=== PATIENT | female | born 1955 | race Caucasian/White ===

== ENCOUNTER 2020-03-19 11:54 | Outpatient (REF) | payer OTHER, SELFPAY | END 2020-03-19 11:55 | disposition home or self-care (01) | LOC: HO.LAB 11:54 | PROVIDERS: PCP Internal Medicine; Visit Provider Psychiatry & Neurology Neurology | DX: M79.2 Neuralgia and neuritis, unspecified (principal); M45.9 Ankylosing spondylitis of unspecified sites in spine | CPT/HCPCS: 82565; 84520 ==

== ENCOUNTER 2020-03-20 10:13 | Outpatient (REF) | payer OTHER, SELFPAY ==
--- NOTE | 2020-03-20 10:28 | MR_ITS ---
EXAMINATION: MRA HEAD WITHOUT AND WITH CONTRAST CLINICAL INFORMATION: Pulsatile tinnitus. COMPARISON: None TECHNIQUE: MRA of the head was performed without and with contrast. A total of 6 mL Gadavist was intravenously administered. An axial fiesta sequence was also performed. FINDINGS: The distal cervical segments of both internal carotid arteries are patent. There is signal loss involving the bilateral petrous ICA segments which could be artifactual (related to presumed pneumatization). The cavernous segments are patent. The paraclinoid and supraclinoid segments are also patent. The ACAs and MCAs appear normal with symmetric collaterals. The intradural vertebral arteries appear patent. The left side being significantly dominant. The basilar artery is patent. There is -type origin of the right NUCLEAR CRITICALITY SAFETY ENGINEER. A small left posterior communicating artery is seen. Both plastic maker are patent with symmetric collaterals. No definite aneurysm is seen. There is no abnormal arterialized flow on the lzwl-se-zfxbji images. No mass effect or midline shift is seen. On the postcontrast images the posterior fossa dural venous sinuses appear patent. The bilateral inner ear structures demonstrate normal signal. No cerebellopontine angle lesion is seen. No gross vestibular schwannoma is noted. MR/MR angio head wo/w con IMPRESSION: No stenosis or aneurysm seen within the intracranial arteries. No abnormal arterialized flow is seen.
[2020-03-20 11:03] LABS: Blood Urea Nitrogen 16 mg/dL (9-16); Estimated Glomerular Filt Rate 59
== END 2020-03-20 10:14 | disposition home or self-care (01) ==
LOC: HO.MRI 10:13
PROVIDERS: PCP Internal Medicine; Visit Provider Psychiatry & Neurology Neurology
DX: H93.19 Tinnitus, unspecified ear (principal)
CPT/HCPCS: 70546; 82565; 84520; A9585

== ENCOUNTER → 2020-07-02 13:35 | Outpatient (BNVA) | payer OTHER, SELFPAY | PROVIDERS: PCP Internal Medicine; Visit Provider Surgery Vascular Surgery ==

== ENCOUNTER 2020-07-07 15:02 | Outpatient (REF) | payer OTHER, SELFPAY ==
--- NOTE | ~2020-07-07 | US_ITS ---
EXAMINATION: US EXTRACRANIAL CAROTID DUPLEX, BILATERAL CLINICAL INFORMATION: Occlusion and stenosis of bilateral carotid arteries. COMPARISON: None TECHNIQUE: Real-time ultrasound and Doppler techniques (integrating B-mode 2-D vascular images, Doppler spectral analysis and color-flow Doppler imaging) were utilized to interrogate the extracranial carotid arteries, the vertebral arteries and proximal subclavian arteries bilaterally. The degree of stenosis is determined by criteria similar to NASCET. FINDINGS: Right Side: 1. There is trace atherosclerotic plaque seen in the bifurcation/proximal ICA region. 2. The common carotid artery PSV proximally is 100 cm/s and distally 103 cm/s. 3. The proximal internal carotid artery velocities are 89 cm/s systolic and 35 cm/s diastolic. 4. The proximal external carotid artery PSV is 127 cm/s. 5. The vertebral artery shows antegrade flow. 6. The subclavian artery waveforms are normal. Left Side: 1. There is no appreciable atherosclerotic plaque seen in the bifurcation/proximal ICA region. 2. The common carotid artery PSV proximally is 109 cm/s and distally 86 cm/s. 3. The proximal internal carotid artery velocities are 96 cm/s systolic and 30 cm/s diastolic. 4. The proximal external carotid artery PSV is 101 cm/s. 5. The vertebral artery shows antegrade flow. 6. The subclavian artery waveforms are normal. US/US carotid duplex BI IMPRESSION: 1. RIGHT: Minimal, non-hemodynamically significant stenosis of the proximal right internal carotid artery corresponding to a 0-49% stenosis by velocity criteria. 2. LEFT: Normal left internal carotid artery without atherosclerotic plaque or hemodynamically significant stenosis.
== END 2020-07-07 15:03 | disposition home or self-care (01) ==
LOC: HO.US 15:02
PROVIDERS: PCP Internal Medicine; Visit Provider Surgery Vascular Surgery
DX: I63.233 Cerebral infarction due to unspecified occlusion or stenosis of bilateral carotid arteries (principal)
CPT/HCPCS: 93880

== ENCOUNTER 2020-12-26 08:56 | Outpatient (REF) | payer OTHER, SELFPAY ==
[2020-12-26 09:58] LABS: MANUAL DIFF FLAG NO
[2020-12-26 10:06] LABS: Basophils Percent Auto 0.9 % (0-2); Eosinophils Absolute Auto 0.1 X10*3/uL (0.0-0.4); Eosinophils Percent Auto 2.8 % (0-4); Hematocrit 40.1 % (37-47); Hemoglobin 13.4 g/dl (12.0-16.0); Imm Gran Abs Auto 0.02 X10*3/uL (0.00-0.03); Imm Gran Pct Auto 0.5 % (0.0-0.4); Lymphocytes Absolute Auto 1.1 X10*3/uL (1.2-4.9); Lymphocytes Percent Auto 26.6 % (20-40); Mean Corpuscular HGB Conc 33.4 g/dl (31.0-35.0); Mean Corpuscular Hemoglobin 32.3 pg (27.0-33.0); Mean Corpuscular Volume 96.6 fL (80-98); Mean Platelet Volume 10.3 fL (9.4-12.3); Monocytes Absolute Auto 0.3 X10*3/uL (0.1-1.2); Monocytes Percent Auto 7.7 % (2-11); Neutrophils Absolute Auto 2.6 X10*3/uL (2.0-8.3); Neutrophils Percent Auto 61.5 % (45-73); Platelet Count 184 X10*3/uL (160-400); Red Blood Count 4.15 X10*6/uL (4.20-5.50); Red Cell Distribution Width 12.6 % (11.0-16.0); White Blood Count 4.3 X10*3/uL (4.8-10.8)
[2020-12-26 10:54] LABS: Alanine Aminotransferase 24 U/L (0-31); Albumin Level 4.5 g/dL (3.5-5.0); Alkaline Phosphatase 78 U/L (39-117); Aspartate Amino Transferase 24 U/L (5-31); Bilirubin Direct 0.3 mg/dL (0.0-0.5); Bilirubin Total 0.7 mg/dL (0.0-1.0); Lipase 45 U/L (8-78); Total Protein 6.7 g/dL (6.5-8.0)
== END 2020-12-26 08:57 | disposition home or self-care (01) ==
LOC: HO.LAB 08:56
PROVIDERS: PCP Internal Medicine; Visit Provider Internal Medicine Gastroenterology
DX: R10.13 Epigastric pain (principal)
CPT/HCPCS: 36415; 80076; 83690; 85025

== ENCOUNTER → 2021-01-21 08:58 | Outpatient (BNVA) | payer OTHER, SELFPAY | PROVIDERS: PCP Internal Medicine ==

== ENCOUNTER 2021-03-19 10:00 | Outpatient (RCR) | payer OTHER, SELFPAY ==
--- NOTE | 2021-02-17 15:36 | MHC.PT.EP ---
[facility] [place] Office [place] Office [place] Office [address] Piotr Redd [address] [phone] F: [phone] F: [phone] F: [phone] F: [phone] Physical Therapy Plan of Care Date of Evaluation: Date of Surgery: Diagnosis: Assessment: The patient arrived reporting pelvic pain and dyspareunia. She had significant pelvic floor weakness, poor musculature endurance the PFM, and fair coordination. Intiially she had significant tightness at the introitus. This relaxed with cues for breathing and time/desensitivation. Once I was past the introitus her PFM were relaxed and had normal tone. The patient was cautioned about when using dilator to use downward pressure to stay away from the urethra. The patient will benefit from diaphragmatic breathing to help introitus relaxation. I will instruct on proper dilator use. She is an excellent candidate for skilled Pelvic Floor Therapy. Frequency and Duration: The patient will be seen 1x/week x 8 weeks. Short Term Goals: 1. Pt to be able to voluntarily relax her pelvic floor and to have improved symmetry in resting tone . 2. Pt to be able to demonstrate diaphragmatic breathing to improve pressure exchange and intra abdominal load management. 1. The patient to be able to learn modifications her and her partner can use during intercourse to alleviate pain caused by penetration. 2. Pt to report 25% reduction in deep pelvic pain. Time Study Technician Goals: 1. The patient to be able to report no pain in her pelvis during house chore, and ADL's to help return to PLOF. 2. Pt to be able to improve PFM contraction to include a lift in the PFM to improve supportive function of the pelvic floor. 3. Pt to be able to return to normal sexual activity without pain. Treatment Plan: Modalities to reduce pain, spasms and effusion. Manual therapy to restore motion and function. Therapeutic exercise to improve strength and flexibility. Neuromuscular re-education for posture and balance. Therapeutic activities to return to functional activities of daily living. Electronically signed by: Please sign and return to therapist. Thank you for your referral.
== END 2021-03-19 14:49 | disposition home or self-care (01) ==
LOC: HO.PT 10:00
PROVIDERS: Visit Provider Urology
DX: R10.2 Pelvic and perineal pain (principal)
CPT/HCPCS: 97112; 97140; 97162; 97530

== ENCOUNTER → 2021-03-26 14:04 | Outpatient (BNVA) | payer OTHER, SELFPAY | PROVIDERS: PCP Internal Medicine ==

== ENCOUNTER → 2021-05-10 08:34 | Outpatient (BNVA) | payer OTHER, SELFPAY | PROVIDERS: PCP Internal Medicine ==

== ENCOUNTER 2021-06-07 16:34 | Outpatient (REF) | payer OTHER, SELFPAY ==
[2021-06-07 17:59] LABS: Appearance Urine CLEAR; Color Urine YELLOW; Glucose Urine UA NEG (NEG); Leukocyte Esterase Urine 1+ (NEG); Nitrite Urine NEG (NEG); Urine Blood TRACE (NEG); Urine Ketones NEG (NEG); Urine Protein NEG (NEG-TRACE)
[2021-06-07 18:26] LABS: Mucus Urine TRACE /LPF; RBC Urine 0-2 /HPF (0); Squamous Epithelial Cell Urine 2+ /LPF; WBC Clumps Urine NOTED
== END 2021-06-07 16:35 | disposition home or self-care (01) ==
LOC: HO.LAB 16:34
PROVIDERS: PCP Internal Medicine; Visit Provider Urology
DX: N39.0 Urinary tract infection, site not specified (principal)
CPT/HCPCS: 81001; 87086

== ENCOUNTER → 2021-08-03 09:39 | Outpatient (BNVA) | payer OTHER, SELFPAY | PROVIDERS: PCP Internal Medicine | DX: Z13.89 Encounter for screening for other disorder (principal) ==

== ENCOUNTER 2021-08-05 10:33 | Outpatient (REF) | payer OTHER, SELFPAY ==
[2021-08-05 12:31] LABS: Appearance Urine CLEAR; Color Urine STRAW; Glucose Urine UA NEG (NEG); Leukocyte Esterase Urine 2+ (NEG); Nitrite Urine NEG (NEG); Specific Gravity - Urine <= 1.005 (1.005-1.025); Urine Blood TRACE (NEG); Urine Ketones NEG (NEG); Urine Protein NEG (NEG-TRACE)
[2021-08-05 13:16] LABS: Bacteria Urine 4+ /LPF; Squamous Epithelial Cell Urine TRACE /LPF
[2021-08-05 13:17] LABS: RBC Urine 0-2 /HPF (0)
== END 2021-08-05 10:34 | disposition home or self-care (01) ==
LOC: HO.LAB 10:33
PROVIDERS: Urology; PCP Internal Medicine
DX: N39.0 Urinary tract infection, site not specified (principal)
CPT/HCPCS: 81001; 87086; 87088; 87186

== ENCOUNTER → 2021-10-15 09:52 | Outpatient (BNVA) | payer OTHER, SELFPAY | PROVIDERS: PCP Internal Medicine; Visit Provider Urology | DX: N39.0 Urinary tract infection, site not specified (principal); N95.8 Other specified menopausal and perimenopausal disorders; R10.2 Pelvic and perineal pain | CPT/HCPCS: 52000 ==

== ENCOUNTER 2022-03-04 13:55 | Outpatient (REF) | payer OTHER, SELFPAY ==
--- NOTE | ~2022-03-04 | US_ITS ---
EXAMINATION: US RETROPERITONEAL LIMITED (RENAL ONLY) CLINICAL INFORMATION: Unspecified hydronephrosis. COMPARISON: Renal ultrasound 10/29/2018 and 09/18/2017. TECHNIQUE: Real-time imaging of the kidneys. FINDINGS: RIGHT KIDNEY: 11.6 x 4.0 x 4.8 cm (SAG x AP x TRV). The kidney is normal in size, contour, and echogenicity. Renal cortical thickness is normal. No renal calculi or focal parenchymal lesions. There is mild right hydroureteronephrosis. LEFT KIDNEY: 9.7 x 3.7 x 4.0 cm (SAG x AP x TRV). The kidney is mildly atrophic in size, normal contour, and echogenicity. No renal calculi or focal parenchymal lesions. BLADDER: Right ureteral jet is demonstrated; left is not. US/US renal BI IMPRESSION: 1. Mild right hydroureteronephrosis. 2. Mild atrophy left kidney. 3. Right ureteral jet is seen.
== END 2022-03-04 13:56 | disposition home or self-care (01) ==
LOC: HO.US 13:55
DX: N13.30 Unspecified hydronephrosis (principal)
CPT/HCPCS: 76775

== ENCOUNTER → 2022-03-11 13:03 | Outpatient (BNVA) | payer OTHER, SELFPAY | PROVIDERS: PCP Internal Medicine; Visit Provider Urology | DX: N13.30 Unspecified hydronephrosis (principal); R10.2 Pelvic and perineal pain; N95.8 Other specified menopausal and perimenopausal disorders | CPT/HCPCS: 51798 ==

== ENCOUNTER 2022-04-21 10:07 | Outpatient (REF) | payer OTHER, SELFPAY ==
[2022-04-21 11:40] LABS: Appearance Urine Clear; Color Urine Yellow; Glucose Urine UA Negative (Negative); Leukocyte Esterase Urine Large (3+) (Negative); Nitrite Urine Negative (Negative); PH 6.5 (5.0-9.0); Specific Gravity - Urine <= 1.005 (1.005-1.025); UMIC TRIGGER UA YES; Urine Blood Moderate (2+) (Negative); Urine Ketones Negative (Negative); Urine Protein Negative (Neg-Trace)
[2022-04-21 11:57] LABS: Bacteria Urine 4+ (None Seen); Hyaline Casts Urine 0-2 /LPF (0-2); RBC Urine 0-2 /HPF (0-2); Squamous Epithelial Cell Urine 0-2 /HPF (0-2); WBC Urine 21-50 /HPF (0-5)
== END 2022-04-21 10:08 | disposition home or self-care (01) ==
LOC: HO.LAB 10:07
PROVIDERS: PCP Internal Medicine; Visit Provider Urology
DX: N39.0 Urinary tract infection, site not specified (principal)
CPT/HCPCS: 81001; 87086; 87088; 87186

== ENCOUNTER 2022-08-12 12:43 | Outpatient (REF) | payer OTHER, SELFPAY ==
[2022-08-12 14:20] LABS: Appearance Urine Clear; Color Urine Yellow; Glucose Urine UA Negative (Negative); Leukocyte Esterase Urine Trace (Negative); Nitrite Urine Negative (Negative); PH 5.5 (5.0-9.0); UMIC TRIGGER UA YES; Urine Blood Negative (Negative); Urine Ketones Negative (Negative); Urine Protein Negative (Neg-Trace)
[2022-08-12 14:23] LABS: Bacteria Urine None Seen (None Seen); Hyaline Casts Urine 0-2 /LPF (0-2); RBC Urine 0-2 /HPF (0-2); Squamous Epithelial Cell Urine 0-2 /HPF (0-2); WBC Urine 0-5 /HPF (0-5)
== END 2022-08-12 12:44 | disposition home or self-care (01) ==
LOC: HO.LAB 12:43
PROVIDERS: PCP Internal Medicine; Visit Provider Urology
DX: N39.0 Urinary tract infection, site not specified (principal)
CPT/HCPCS: 81001; 87086

== ENCOUNTER → 2022-09-09 13:38 | Outpatient (BNVA) | payer OTHER, SELFPAY | PROVIDERS: PCP Internal Medicine; Visit Provider Nurse Practitioner Family | DX: N39.0 Urinary tract infection, site not specified (principal); N95.8 Other specified menopausal and perimenopausal disorders | CPT/HCPCS: 51798 ==

== ENCOUNTER 2023-02-27 09:56 | Outpatient (REF) | payer OTHER, SELFPAY ==
--- NOTE | ~2023-02-27 | US_ITS ---
EXAMINATION: US RETROPERITONEAL COMPLETE (RENAL) CLINICAL INFORMATION: Unspecified hydronephrosis. COMPARISON: Ultrasound retroperitoneal limited 03/04/2022 and 10/29/2018. TECHNIQUE: Real-time imaging of the kidneys and bladder. Limited visualization due to bowel gas. FINDINGS: RIGHT KIDNEY: 11.1 x 3.8 x 4.4 cm (SAG x AP x TRV). Mild right hydronephrosis and proximal hydroureter. Cap-pe-kbdpgh ureter obscured by bowel gas. No right renal calculi identified. Renal cortical thickness is normal. Limited visualization. LEFT KIDNEY: 7.9 x 2.3 x 2.9 cm (SAG x AP x TRV). Atrophic left kidney. Mild borderline left hydronephrosis. No renal calculi identified. Limited visualization. Possible renal cortical thinning difficult to evaluate due to severely limited visualization. BLADDER: Well-distended. Right ureteral jet is visualized. A weak left ureteral jet is visualized. Prevoid bladder volume is 345 mL. Postvoid bladder volume is 25 mL. US/US retroperitoneal comp IMPRESSION: 1. Mild right hydronephrosis and proximal hydroureter. Bco-nh-atioic ureter obscured by bowel gas. No right renal calculi identified. 2. Atrophic left kidney. Mild borderline left hydronephrosis. No renal calculi identified. Limited visualization. 3. Possible renal cortical thinning difficult to evaluate due to severely limited visualization. 4. Right ureteral jet is visualized. A weak left ureteral jet is visualized.
== END 2023-02-27 09:57 | disposition home or self-care (01) ==
LOC: HO.US 09:56
PROVIDERS: PCP Student in an Organized Health Care Education/Training Program; Visit Provider Nurse Practitioner Family
DX: N13.30 Unspecified hydronephrosis (principal); N39.0 Urinary tract infection, site not specified
CPT/HCPCS: 76770

== ENCOUNTER 2023-03-14 11:26 | Outpatient (AMB) | payer OTHER, SELFPAY ==
--- NOTE | 2023-03-14 11:31 | A.OFFVIS_ITS ---
Intake Intake Visit Reasons: 6m/PVR(set) Intake Note: Patient is present for follow up recurrent uti Urology Medications: estrace cream, solifenacin, cipro prn Blood Thinner: none PVR: 97ml's Javascript Application Developer Required: No Accompanied by: Self / Same As Patient Allergies codeine [CODEINE] Allergy (Unknown, Verified 03/14/23 11:51) Unknown Iodinated Contrast Media [IV Dye, Iodine Containing] Allergy (Unknown, Verified 03/14/23 11:51) Unknown Penicillins [PENICILLINS] Allergy (Unknown, Verified 03/14/23 11:51) Hives Sulfa (Sulfonamide Antibiotics) [SULFA (SULFONAMIDE ANTIBIOTICS)] Allergy (Unknown, Verified 03/14/23 11:51) Unknown latex Allergy (Verified 03/14/23 11:51) Rash meperidine [From Demerol] Allergy (Verified 03/14/23 11:51) Unknown nitrofurantoin [From Macrobid] Allergy (Verified 03/14/23 11:51) Unknown Medication List - Last Reconciled 03/14/23 by MESERET Rizzo- amitriptyline 10 mg PO BEDTIME ciprofloxacin HCl 250 mg PO DAILY 30 days cyclobenzaprine 5 mg PO BEDTIME PRN estradiol 0.01%(0.1mg/gram) 1 g vaginal 3XW fluticasone propionate 50 mcg/actuation 2 sprays intranasal DAILY gabapentin 125 mg PO DAILY linezolid 600 mg PO BID 7 days lorazepam (Ativan) 0.5 mg PO BEDTIME PRN omeprazole 10 mg PO DAILY solifenacin 5 mg PO DAILY 90 days sumatriptan succinate mg PO HPI HPI Comments History of Present Illness Details Fadumo is a very pleasant 67-year-old female patient of Dr. Cowart. She presents to the office today for follow-up of her genitourinary symptoms of menopause, lichen sclerosis and recurrent urinary tract infections. She has a past medical history of anxiety, atrophy of the left kidney, cervical spondylosis, depression, fibromyalgia, GERD, and osteopenia. When asked she reports to be doing and feeling well. She discusses recently celebrating her 67 birthday. When asked she reports compliance with topical Estrace cream. Recent retroperitoneal ultrasound results reviewed with the patient today. Right kidney with mid right hydronephrosis and proximal hydroureter. Cva-oi-uxptsa ureter obscured by bowel gas. No right renal calculi identified. Left atrophic kidney. Mild borderline left hydronephrosis. No renal calculi identified. The bladder is well distended. Right ureteral jet is visualized. A week left ureteral jet is visualized. Prevoid bladder volume is approximately 350 mL. Postvoid bladder volume is approximately 30 mL. Patient with a recent 24 hour urine collection with endocrinology for possible initiation of Prolia given longstanding history of osteoporosis. 11/30 BUN--15 creatinine--1.0. She currently denies any bothersome urinary issues or concerns at this time. In office urinalysis results reviewed with the patient today. PVR--97ml's. When asked she denies urinary urgency, urinary frequency, incontinence, nocturia, hematuria, dysuria, foul smelling urine, changes to urinary stream, flank pain, fever, and or chills. She is happy with her current voiding parameters on 5 mg of VESIcare daily. Discussed further hydronephrosis workup versus surveillance monitoring. [facility] Medical History Fibromyalgia GERD (gastroesophageal reflux disease) Cervical spondylosis Osteopenia Depression Anxiety Atrophy of left kidney Sexual arousal disorder Pelvic pain Hydronephrosis Frequent UTI delivery delivered Surgical History History of surgery Status post vein stripping Family History Mother HTN (hypertension) Heart attack Diabetes Father Esophagus cancer Social History Alcohol intake: never Patient Tobacco Use Status: Never used Tobacco Review of Systems Const All systems reviewed & are unremarkable except as noted in HPI and below Reports as per HPI Eyes Reports no additional complaints ENT Reports no additional complaints Card Reports no additional complaints Resp Reports no additional complaints GI Reports as per HPI Reports as per HPI Musc Reports as per HPI Neuro Reports no additional complaints Psych Reports as per HPI Endo Reports no additional complaints Physical Exam Const General: cooperative, healthy appearing, comfortable, no acute distress, well developed, alert and awake Orientation/consciousness: patient oriented x3 Limitations: no limitations HEENT Head: Yes normal to inspection, Yes normocephalic and Yes atraumatic Ears: hearing grossly normal bilaterally Eyes General: appearance normal, both eyes and all related structures Neck Neck: Yes normal visual inspection and Yes trachea midline Chest Chest palpation & inspection: normal inspection of the chest Resp Effort & Inspection: normal respiratory effort and able to speak in complete sentences Cardio Rate: regular rate GI Inspection: Yes normal to inspection General: Yes no CVA tenderness Back/Spine/Pelvis Back: no CVA tenderness Skin General skin exam: no rashes or lesions noted Neuro General: patient oriented x3 Extrem General: Yes normal to inspection Psych Appearance: grossly normal and well kempt Mental Status: mental status grossly normal Speech and movement: Normal speech and movement present and Clear speech present Affect: normal affect Attitude: cooperative Thought process: Normal thought process present Thought content: Normal thought content present Insight: Good insight present (Psych) Judgement: Good judgement present (Psych) Office Procedures Post Void Residual Post Residual Void Post Void Residual (PVR): 97 [id number] Void Residual by ultrasound Results AMB Urinalysis, Automated UA Leukoctes 0 Deep/uL Last Edit by Gocella on 03/14/23 11:55 UA Nitrite Negative Last Edit by Gocella on 03/14/23 11:55 UA Urobilinogen 0.2 mg/dL Last Edit by Gocella on 03/14/23 11:55 UA Protein 0 mg/dL Last Edit by Gocella on 03/14/23 11:55 UA pH 6.0 Last Edit by Gocella on 03/14/23 11:55 UA Blood 10 Noble/uL Last Edit by Gocella on 03/14/23 11:55 UA Specific [place] 1.010 Last Edit by Gocella on 03/14/23 11:55 UA Ketone Negative Last Edit by Gocella on 03/14/23 11:55 UA Bilirubin 0 mg/dL Last Edit by Gocella on 03/14/23 11:55 UA Glucose 0 mg/dL Last Edit by Gocella on 03/14/23 11:55 Results Reviewed Results Reviewed: Laboratory Last Values Urine pH (Auto) 6.0 03/14/23 11:33 Specific [place] (Auto) 1.010 03/14/23 11:33 Urine Protein (Auto) 0 mg/dL 03/14/23 11:33 Glucose (UA)(Auto) 0 mg/dL 03/14/23 11:33 Urine Ketones (Auto) Negative 03/14/23 11:33 Urine Blood (Auto) 10 [place]/uL 03/14/23 11:33 Urine Nitrite (Auto) Negative 03/14/23 11:33 Urine Bilirubin (Auto) 0 mg/dL 03/14/23 11:33 Urine Urobilinogen (Auto) 0.2 mg/dL 03/14/23 11:33 Leukocyte Esterase (Auto) 0 Deep/uL 03/14/23 11:33 Date of Service: 02/27/23 EXAMINATION: US RETROPERITONEAL COMPLETE (RENAL) FINDINGS: RIGHT KIDNEY: 11.1 x 3.8 x 4.4 cm (SAG x AP x TRV). Mild right hydronephrosis and proximal hydroureter. Ysz-ug-hfjjsp ureter obscured by bowel gas. No right renal calculi identified. Renal cortical thickness is normal. Limited visualization. LEFT KIDNEY: 7.9 x 2.3 x 2.9 cm (SAG x AP x TRV). Atrophic left kidney. Mild borderline left hydronephrosis. No renal calculi identified. Limited visualization. Possible renal cortical thinning difficult to evaluate due to severely limited visualization. BLADDER: Well-distended. Right ureteral jet is visualized. A weak left ureteral jet is visualized. Prevoid bladder volume is 345 mL. Postvoid bladder volume is 25 mL. -- IMPRESSION: 1. Mild right hydronephrosis and proximal hydroureter. Yly-qa-gstijk ureter obscured by bowel gas. No right renal calculi identified. 2. Atrophic left kidney. Mild borderline left hydronephrosis. No renal calculi identified. Limited visualization. 3. Possible renal cortical thinning difficult to evaluate due to severely limited visualization. 4. Right ureteral jet is visualized. A weak left ureteral jet is visualized. Assessment & Plan Assessment & Plan (1) Hydronephrosis: Code(s): N13.30 - Unspecified hydronephrosis (2) Frequent UTI: Code(s): N39.0 - Urinary tract infection, site not specified Plan In office urinalysis results reviewed with the patient today; as noted above. PVR 97 mL. Recent retroperitoneal ultrasound results reviewed with the patient today; as noted above. Discussed further workup of hydronephrosis noted on renal ultrasound. Versus surveillance monitoring; discussed risks and benefits; this was discussed at length She currently denies any bothersome urinary issues or concerns at this time. She reports to be happy with current voiding parameters on 5 mg of VESIcare daily refill provided. Most recent BUN and creatinine results reviewed with the patient today; as noted above. Discussed, educated, and stressed the importance of drinking water daily. Will obtain renal nuclear scan for further assessment evaluation. Discussed UTI prevention with D mannose supplement, vitamin-C, increasing fluid intake, behavioral therapy with timed voiding, perineal hygiene and postcoital voiding, and management of constipation with stool softeners and increased fiber intake. Continue Estrace cream and postcoital antibiotic therapy as prescribed Discussed Follow-up in 4-8 weeks with imaging to be completed prior; or sooner with any issues, concerns, and or questions. Orders: Orders AMB Urinalysis Automated Today Z13.9 - Encounter for screening, unspecified NM renal flow wo pharm int Today N13.30 - Unspecified hydronephrosis Urine Cytology Today R10.2 - Pelvic and perineal pain AMB Post Void Residual by ultrasound Today N39.0 - Urinary tract infection, site not specified Medications: Refilled solifenacin 5 mg PO DAILY 90 tabs 1RF 90 days ciprofloxacin HCl 250 mg PO DAILY 7 tabs 0RF 30 days N39.0 - Urinary tract infection, site not specified Patient Instructions: The patient had an opportunity to ask questions regarding the treatment plan. All questions were answered. Physical exam, labs, and imaging were discussed and reviewed in detail. As well as risks, benefits, and discussion of treatment choices. No major barriers to understanding were identified. The patient expressed understanding and agreement with the above treatment plan. The patient was made aware they should contact our office by phone for worsening of their current condition, the appearance of new symptoms, or with any questions or concerns. Compliance is encouraged with any medications and follow up testing that is ordered. It is a privilege to be allowed the opportunity to participate in? your urological care.? Again, if you have any questions or concerns If you have any questions or concerns please do not hesitate to contact me. The office is [phone]. This note is constructed using voice recognition software. While every effort has been made to ensure accuracy captain fishing vessel errors may have been included. Yours sincerely, Ally Giles, [employer] Coding Level of Care Code Est Pt Level 3 (49211) Diagnoses Hydronephrosis N13.30 Frequent UTI N39.0 CPT Codes Post Residual Void - PVR CPT Code: 45960-Iqni Void Residual by ultrasound ([id number])
== END 2023-03-14 12:30 | disposition home or self-care (01) ==
PROVIDERS: PCP Internal Medicine; Visit Provider Nurse Practitioner Family
DX: N13.30 Unspecified hydronephrosis (principal); N39.0 Urinary tract infection, site not specified
CPT/HCPCS: 99213

== ENCOUNTER 2023-03-14 11:26 | Outpatient (REF) | payer OTHER, SELFPAY ==
[2023-03-14 17:06] LABS: Urine Cytology See Pathology rpt
== END 2023-03-14 11:27 | disposition home or self-care (01) ==
LOC: HO.LNP 11:26
PROVIDERS: PCP Internal Medicine; Visit Provider Nurse Practitioner Family
DX: R10.2 Pelvic and perineal pain (principal); N13.30 Unspecified hydronephrosis; N39.0 Urinary tract infection, site not specified
CPT/HCPCS: 51798; 81003; 88112

== ENCOUNTER 2023-07-04 11:12 | Day surgery (SDC) | payer OTHER, SELFPAY ==
[2023-06-30 11:26] VITALS: BMI 19.9
--- NOTE | 2023-07-03 09:09 | HO.ANESPROP2 ---
Documented by User: Gemma Estevez NP 07/03/23 09:12 HPI - Anesthesia Eval Consult details Narrative: 67yo F for Upper Endoscopy PMFSH Active Problems Active Problems: All Active Problems (Updated 06/30/23 @ 11:26 by Jennifer Ivye RN) Genitourinary syndrome of menopause (Acute) Carotid disease, bilateral (Acute) Pulsatile tinnitus of both ears (Acute) Pelvic pain (Acute) Hydronephrosis (Acute) Frequent UTI (Acute) Past Medical History Medical History (Updated 06/30/23 @ 11:26 by Jennifer Ivey RN) Back pain Fibromyalgia GERD (gastroesophageal reflux disease) Cervical spondylosis Osteopenia Depression Anxiety Atrophy of left kidney Sexual arousal disorder Pelvic pain Hydronephrosis Frequent UTI delivery delivered Family History Family History Mother HTN (hypertension) Heart attack Diabetes Father Esophagus cancer Surgical History Surgical History (Updated 06/30/23 @ 11:26 by Jennifer Ivey RN) History of esophagogastroduodenoscopy (EGD) H/O colonoscopy Hx of varicose vein ligation Hx of section Hx of tonsillectomy Social History Social History (Updated 06/30/23 @ 11:26 by Jennifer Ivey RN) Alcohol intake: never Patient Tobacco Use Status: Never used Tobacco Meds Allergies Allergy/AdvReac Type Severity Reaction Status Date / Time latex Allergy Intermediate Rash Verified 06/30/23 11:28 Penicillins [PENICILLINS] Allergy Intermediate Hives Verified 06/30/23 11:28 codeine [CODEINE] Allergy Unknown Unknown Verified 03/14/23 11:51 Iodinated Contrast Media Allergy Unknown Unknown Verified 03/14/23 11:51 [IV Dye, Iodine Containing] meperidine [From Demerol] Allergy Unknown Unknown Verified 06/30/23 11:28 nitrofurantoin Allergy Unknown Unknown Verified 06/30/23 11:28 [From Macrobid] Sulfa (Sulfonamide Allergy Unknown Unknown Verified 03/14/23 11:51 Antibiotics) [SULFA (SULFONAMIDE ANTIBIOTICS)] Home Medications Medication Instructions Recorded Confirmed Last Taken Type cyclobenzaprine 5 mg tablet 5 mg PO BEDTIME PRN 07/02/20 03/14/23 Unknown History fluticasone propionate 50 2 spray intranasal DAILY 07/02/20 03/14/23 Unknown History mcg/actuation nasal spray,suspension gabapentin 250 mg/5 mL oral 125 mg PO DAILY 07/02/20 03/14/23 Unknown History solution sumatriptan succinate 25 mg tablet 25 mg PO DAILY PRN Migraine 07/02/20 06/30/23 Unknown History Headache lorazepam 0.5 mg tablet (Ativan) 0.5 mg PO BEDTIME PRN 01/21/21 03/14/23 Unknown History omeprazole 10 mg capsule,delayed 10 mg PO DAILY 01/21/21 06/30/23 Unknown History release estradiol 0.01% (0.1 mg/gram) 1 g vaginal 3XW 08/03/21 03/14/23 Unknown History vaginal cream amitriptyline 10 mg tablet 10 mg PO BEDTIME 03/14/23 06/30/23 Unknown History Exam Height,Weight and Vital Signs: Height 5 ft 8 in Weight 59.421 kg Assessment and Plan Assessment Anesthesia Assessment: Chart Reviewed Documented by User: Niko Escobar MD 07/04/23 11:51 [facility] Past Medical History Medical History (Updated 06/30/23 @ 11:26 by Jennifer Ivey RN) Back pain Fibromyalgia GERD (gastroesophageal reflux disease) Cervical spondylosis Osteopenia Depression Anxiety Atrophy of left kidney Sexual arousal disorder Pelvic pain Hydronephrosis Frequent UTI delivery delivered Functional capacity: independent ambulation Family History Family History Mother HTN (hypertension) Heart attack Diabetes Father Esophagus cancer Family history of problems with anesthesia: No Surgical History Surgical History (Updated 06/30/23 @ 11:26 by Jennifer Ivey RN) History of esophagogastroduodenoscopy (EGD) H/O colonoscopy Hx of varicose vein ligation Hx of section Hx of tonsillectomy History of Problems with Anesthesia: No Social History Social History (Updated 06/30/23 @ 11:26 by Jennifer Ivey RN) Alcohol intake: never Patient Tobacco Use Status: Never used Tobacco Meds Allergies Allergy/AdvReac Type Severity Reaction Status Date / Time latex Allergy Intermediate Rash Verified 06/30/23 11:28 Penicillins [PENICILLINS] Allergy Intermediate Hives Verified 06/30/23 11:28 codeine [CODEINE] Allergy Unknown Unknown Verified 03/14/23 11:51 Iodinated Contrast Media Allergy Unknown Unknown Verified 03/14/23 11:51 [IV Dye, Iodine Containing] meperidine [From Demerol] Allergy Unknown Unknown Verified 06/30/23 11:28 nitrofurantoin Allergy Unknown Unknown Verified 06/30/23 11:28 [From Macrobid] Sulfa (Sulfonamide Allergy Unknown Unknown Verified 03/14/23 11:51 Antibiotics) [SULFA (SULFONAMIDE ANTIBIOTICS)] Home Medications Medication Instructions Recorded Confirmed Last Taken Type cyclobenzaprine 5 mg tablet 5 mg PO BEDTIME PRN 07/02/20 03/14/23 Unknown History fluticasone propionate 50 2 spray intranasal DAILY 07/02/20 03/14/23 Unknown History mcg/actuation nasal spray,suspension gabapentin 250 mg/5 mL oral 125 mg PO DAILY 07/02/20 03/14/23 Unknown History solution sumatriptan succinate 25 mg tablet 25 mg PO DAILY PRN Migraine 07/02/20 06/30/23 Unknown History Headache lorazepam 0.5 mg tablet (Ativan) 0.5 mg PO BEDTIME PRN 01/21/21 03/14/23 Unknown History omeprazole 10 mg capsule,delayed 10 mg PO DAILY 01/21/21 06/30/23 Unknown History release estradiol 0.01% (0.1 mg/gram) 1 g vaginal 3XW 08/03/21 03/14/23 Unknown History vaginal cream amitriptyline 10 mg tablet 10 mg PO BEDTIME 03/14/23 06/30/23 Unknown History Exam Airway Mallampati Class: I TM Dist: >3cm Neck ROM: Full Loose/Missing/Broken Teeth: No Heart: rrr Lungs: cta b/l Assessment and Plan Final Anesthetic Review Family History of Problems with Anesthesia: No History of Problems with Anesthesia: No NPO: Yes ASA Class: II Final Preanesthetic Review: No Changes in Pt Med Stat, Meds/Allgs Chart Reviewed, Consent Obtained/Reviewed and Anes Risks/Benef Reviewed Patient Risk: Intermediate Procedure Risk: Intermediate Anesthetic Plan Anesthetic Plan: MAC: Disposition: Standard PACU
[2023-07-04 11:43] VITALS: BP 157/70; PULSE 86; RESP 18; TEMP 36.3; O2SAT 99; BMI 19.7
--- NOTE | 2023-07-04 11:49 | MHC.SHP ---
Pre-Procedural Eval Section A - 24 Hr Update-Section A only Date of Service: 07/04/23 The patient is an INPATIENT: No Changes since office visit: No Cold of Flu in the past 2 weeks, No New Medical Problems, No Changes in Medication and No Patient answered all questions The patient has been examined within 24 hours of the surgical procedure. The History & Physical has been completed within 30 days and I have reviewed it.: Yes Section B - Complete if H&P > 30 days Chief Complaint: Gastro-esophageal reflux disease without esophagit Allergies: Allergies Allergy/AdvReac Type Severity Reaction Status Date / Time latex Allergy Intermediate Rash Verified 06/30/23 11:28 Penicillins [PENICILLINS] Allergy Intermediate Hives Verified 06/30/23 11:28 codeine [CODEINE] Allergy Unknown Unknown Verified 03/14/23 11:51 Iodinated Contrast Media Allergy Unknown Unknown Verified 03/14/23 11:51 [IV Dye, Iodine Containing] meperidine [From Demerol] Allergy Unknown Unknown Verified 06/30/23 11:28 nitrofurantoin Allergy Unknown Unknown Verified 06/30/23 11:28 [From Macrobid] Sulfa (Sulfonamide Allergy Unknown Unknown Verified 03/14/23 11:51 Antibiotics) [SULFA (SULFONAMIDE ANTIBIOTICS)] Plan I have reviewed the history and physical and performed a pertinent physical examination on my patient. No changes have occurred unless specified. Time Spent With Patient Time: Total time managing care of this patient today ____ minutes.
[2023-07-04] MEDS: Lactated Ringers 1,000 ML 100 ML IVCONT (11:55)
[2023-07-04 12:20] VITALS: BP 113/81; PULSE 68; RESP 16; TEMP 36.4; O2SAT 100
[2023-07-04 12:25] VITALS: BP 111/75; PULSE 68; RESP 18; O2SAT 98
[2023-07-04 12:30] VITALS: BP 120/68; PULSE 69; RESP 18; O2SAT 97
[2023-07-04 12:35] VITALS: BP 134/60; PULSE 65; RESP 18; TEMP 36.6; O2SAT 99
--- NOTE | 2023-07-04 13:28 | OP_ITS ---
DATE OF SERVICE: 07/04/2023 SURGEON: Ady Skelton MD INDICATIONS: Gastroesophageal reflux disease. PREOPERATIVE DIAGNOSIS: POSTOPERATIVE DIAGNOSIS: PROCEDURE PERFORMED: Upper endoscopy with biopsy. ESTIMATED BLOOD LOSS: COMPLICATIONS: ANESTHESIA: Monitored anesthesia care. ASSISTANTS: SPECIMENS: DESCRIPTION OF PROCEDURE: A history and physical was performed. The risks and benefits of the procedure were explained to the patient and informed consent was obtained. The patient was placed in the left lateral decubitus position. The Olympus video gastroscope was introduced into the esophagus, stomach, and duodenum. Examination was performed and the scope was removed. She tolerated the procedure well and was returned to recovery area in stable condition. FINDINGS: Esophagus: The esophagus showed an irregular EG junction. There was no esophagitis. Biopsies were obtained from the distal esophagus/EG junction to rule out Brizuela esophagus. Stomach: The stomach showed no evidence of masses or ulcers. There were several benign-appearing less than 10 mm polyps in the body and fundus consistent with fundic gland polyps. Antral biopsies were obtained to evaluate for H pylori. Duodenum: The bulb and 2nd portion were normal. Duodenal biopsies were obtained. IMPRESSION: Gastroesophageal reflux disease. RECOMMENDATION: Follow up the biopsy results. MD SARMAD Castanon/EVAN / [phone]
== END 2023-07-04 13:45 | disposition home or self-care (01) ==
PROVIDERS: PCP Internal Medicine; Visit Provider Internal Medicine Gastroenterology
PROC: 0DJ08ZZ Inspection of Upper Intestinal Tract, Via Natural or Artificial Opening Endoscopic (ICD-10-PCS; CPT 43235; principal; 2023-07-04 13:10)
DX: K21.9 Gastro-esophageal reflux disease without esophagitis (principal); K29.50 Unspecified chronic gastritis without bleeding; K31.7 Polyp of stomach and duodenum; K58.9 Irritable bowel syndrome, unspecified; N18.9 Chronic kidney disease, unspecified; F41.9 Anxiety disorder, unspecified; Z79.899 Other long term (current) drug therapy
CPT/HCPCS: 43239; 88305; 88313; 88342; J2405; J2704

== ENCOUNTER 2024-04-19 13:38 | Outpatient (AMB) | payer BC, SELFPAY ==
--- NOTE | 2024-04-19 13:51 | A.OFFVIS_ITS ---
Intake Visit Reasons: follow up/UTI Intake Note: Patient is present for Urology Medication: Antibiotic Allergy: Blood Thinner: Allergies latex Allergy (Intermediate, Verified 06/30/23 11:28) Rash Penicillins [PENICILLINS] Allergy (Intermediate, Verified 06/30/23 11:28) Hives codeine [CODEINE] Allergy (Unknown, Verified 03/14/23 11:51) Unknown Iodinated Contrast Media [IV Dye, Iodine Containing] Allergy (Unknown, Verified 03/14/23 11:51) Unknown meperidine [From Demerol] Allergy (Unknown, Verified 06/30/23 11:28) Unknown nitrofurantoin [From Macrobid] Allergy (Unknown, Verified 06/30/23 11:28) Unknown Sulfa (Sulfonamide Antibiotics) [SULFA (SULFONAMIDE ANTIBIOTICS)] Allergy (Unknown, Verified 03/14/23 11:51) Unknown HPI Comments Details: Fadumo is a pleasant female. She is a patient of Dr.Glading- Shanks. She seen for the following urologic conditions - genitourinary symptoms of menopause - lichen sclerosis - recurring UTI - renal atrophy Prescriptions provided 12 month follow-up Renal atrophy Left side longstanding Prior creatinine 1.0 Has mild hydro on right but prior Lasix renogram shows no evidence of obstruction Uses solifenacin p.r.n. for overactive bladder Genitourinary symptoms of menopause Combination lichen sclerosis Prior recurrent dysuria Good response to topical estradiol cream Also has post coital infections - Levaquin prescribed to use as needed Prior incontinence on positional changes that responded to pelvic floor therapy PFSH Medical History (Updated 06/30/23 @ 11:26 by Jennifer Ivey RN) Back pain Fibromyalgia GERD (gastroesophageal reflux disease) Cervical spondylosis Osteopenia Depression Anxiety Atrophy of left kidney Sexual arousal disorder Pelvic pain Hydronephrosis Frequent UTI delivery delivered Surgical History (Updated 06/30/23 @ 11:26 by Jennifer Ivey RN) History of esophagogastroduodenoscopy (EGD) H/O colonoscopy Hx of varicose vein ligation Hx of section Hx of tonsillectomy Family History Mother HTN (hypertension) Heart attack Diabetes Father Esophagus cancer Social History (Updated 06/30/23 @ 11:26 by Jennifer Ivey RN) Alcohol intake: never Patient Tobacco Use Status: Never used Tobacco Results AMB Urinalysis, Automated UA Leukoctes 0 Deep/uL Last Edit by FAYE Pelayo on 04/19/24 14:06 UA Nitrite Negative Last Edit by Hannah Young [facility] on 04/19/24 14:06 UA Urobilinogen 0.2 mg/dL Last Edit by FAYE Pelayo on 04/19/24 14:0 6 UA Protein 0 mg/dL Last Edit by Hannah Young [facility] on 04/19/24 14:06 UA pH 6.0 Last Edit by Hannah Young [facility] on 04/19/24 14:06 UA Blood 0 Noble/uL Last Edit [facility] on 04/19/24 14:06 UA Specific Clemons 1.005 Last Edit by Hannah Young [facility] on 04/19/24 14: 06 UA Ketone Negative Last Edit by FAYE Pelayo on 04/19/24 14:06 UA Bilirubin 0 mg/dL Last Edit by Hannah Young [facility] on 04/19/24 14:06 UA Glucose 0 mg/dL Last Edit by Hannah Young [facility] on 04/19/24 14:06 Results Reviewed Results Reviewed: Laboratory Last Values Urine pH (Auto) 6.0 04/19/24 14:05 Specific Clemons (Auto) 1.005 04/19/24 14:05 Urine Protein (Auto) 0 mg/dL 04/19/24 14:05 Glucose (UA)(Auto) 0 mg/dL 04/19/24 14:05 Urine Ketones (Auto) Negative 04/19/24 14:05 Urine Blood (Auto) 0 Noble/uL 04/19/24 14:05 Urine Nitrite (Auto) Negative 04/19/24 14:05 Urine Bilirubin (Auto) 0 mg/dL 04/19/24 14:05 Urine Urobilinogen (Auto) 0.2 mg/dL 04/19/24 14:05 Leukocyte Esterase (Auto) 0 Deep/uL 04/19/24 14:05 Assessment & Plan Assessment & Plan (1) Frequent UTI: Code(s): N39.0 - Urinary tract infection, site not specified Category: Medical (2) Hydronephrosis: Code(s): N13.30 - Unspecified hydronephrosis Category: Medical (3) Genitourinary syndrome of menopause: Code(s): N95.8 - Other specified menopausal and perimenopausal disorders Category: Medical Plan Twelve month follow-up Orders: Orders AMB Urinalysis Automated Today Z13.9 - Encounter for screening, unspecified Medications: Changed From levofloxacin 500 mg PO Q24H 10 days 10 tabs 0RF UTI N95.8 - Other specified menopausal and perimenopausal disorders To levofloxacin To be used if UTI symptoms 500 mg PO Q24H 10 days 10 tabs 0RF UTI N95.8 - Other specified menopausal and perimenopausal disorders From estradiol 0.01%(0.1mg/gram) 1 g vaginal 3XW N95.8 - Other specified menopausal and perimenopausal disorders To estradiol 0.01%(0.1mg/gram) Use pea sized amount and apply 3 times per week. Dispose of applicator. 1 g vaginal 3XW 90 days 42.5 grams 1RF N95.8 - Other specified menopausal and adams menopausal disorders Refilled solifenacin 5 mg PO DAILY 90 days 90 tabs 0RF N95.8 - Other specified menopausal and perimenopausal disorders Patient Instructions: Imaging studies, laboratory and physical exam results were discussed and reviewed in detail. No major barriers to patient understanding were identified. An opportunity to ask questions regarding the treatment plan was provided. All questions were answered. The patient expressed understanding and agreement with the above treatment plan. The patient is aware they should contact our office by phone for worsening of their current condition or the appearance of new urologic symptoms. Compliance is encouraged with any medications and followup testing that is ordered. It is a privilege to participate in the urologic care of your patient. If you have any questions or concerns regarding treatment for the above conditions, or other urologic issues, please do not hesitate to contact me. The office telephone contact is [phone]. This note is constructed using voice recognition software. While every effort has been made to ensure accuracy fur scraper errors may have been included. Yours sincerely, Dr Luis Eason MD, [facility] - Urology Providers of Expert, Compassionate Care for the Genitourinary System Coding Level of Care Code Est Pt Level 4 (34374) Diagnoses Frequent UTI N39.0 Hydronephrosis N13.30 Genitourinary syndrome of menopause N95.8
== END 2024-04-19 14:22 | disposition home or self-care (01) ==
PROVIDERS: PCP Internal Medicine; Visit Provider Urology
DX: N39.0 Urinary tract infection, site not specified (principal); N13.30 Unspecified hydronephrosis; N95.8 Other specified menopausal and perimenopausal disorders; Z13.9 Encounter for screening, unspecified
CPT/HCPCS: 99214

== ENCOUNTER → 2024-04-19 13:38 | Outpatient (BNVA) | payer BC, SELFPAY | PROVIDERS: PCP Internal Medicine; Visit Provider Urology | DX: N39.0 Urinary tract infection, site not specified (principal); N13.30 Unspecified hydronephrosis; N95.8 Other specified menopausal and perimenopausal disorders | CPT/HCPCS: 81003 ==

== ENCOUNTER 2025-01-02 07:36 | Emergency (ER) | payer BC, SELFPAY ==
--- OUTSIDE RECORDS SUMMARY | 2023-07-04 08:20 | XMS_ITS ---
Author Organization [facility] Address [address] [place] [phone] Care Team Providers Care Rent And Housing Investigator Name Role Phone Osvaldo Shanks MD, Indira Primary Care Provider Unavailable Ady Skelton Jr REASON FOR VISIT gerd Problems Problem Type SNOMED Code ICD Code Onset Dates Problem Status W/U Status Risk Notes Problem Gastro-esophagea l reflux disease without esophagitis (572411586) Gastro-esophage al reflux disease without esophagitis (K21.9) Active confirmed Encounters Encounter Location Date Provider Diagnosis [facility] [address] [place] [phone] 07/04/2023 Ady Skelton Jr Gastro-esophageal reflux disease without esophagitis K21.9 Assessments Encounter Date Diagnosis (ICD Code) Assessment Notes Treatment Notes Treatment Clinical Notes Section Notes 07/04/2023 Gastro-esophagea l reflux disease without esophagitis (ICD-10 - K21.9) Plan Of Treatment No Information Progress Notes * MICKI HIDALGO ADOB:1955 (69 yo F)Acc No.[id number]:07/04/2023 EGD/MAC Patient: Donna LEUNG MICKI Boucher Provider: Naseem Skelton MD :1955 A ge:67 Y S ex:Female Date:07/04/2023 Address:[address] [place], [place] [id number] Pcp:Indira Shanks MD Subjective: * Chief Complaints: * 1 . Gerd. * Medical History: Objective: * Vitals: Assessment: * Assessment: 1. G roger-esophageal reflux disease without esophagitis - K21.9 (Primary) Plan: * Treatment: * Procedure Codes: 4 3239 UPPER GI ENDOSCOPY, BIOPSY * * The named appointment provid er may or may not be the originator of this progress note, and it is not deemed complete until electronically signed by the appointment provider. Sign off status: Pending * Provider: Naseem Skelton MD Date: 0 07/04/2023 Generated for Karlee urrutia/Brenda/Renettaitting on: 0 01/02/2025 09:39 AM EDT
--- OUTSIDE RECORDS SUMMARY | 2023-07-17 09:35 | XMS_ITS ---
Author Organization [facility] Address [address] [place] [phone] Care Team Providers Care First Aid Instructor Name Role Phone Osvaldo Shanks MD, Indira Primary Care Provider Ady Dailey Jr [phone] REASON FOR VISIT Patient presents today for gerd Encounters Encounter Location Date Provider Diagnosis [facility] [address] [place] [phone] 07/17/2023 Ady Skelton Jr Plan Of Treatment No Information Progress Notes * ZAK HIDALGOH ADOB:1955 (69 yo F)Acc No.[id number]:07/17/2023 Progress Notes Patient: MICKI BALDWIN Provider: Naseem Skelton MD :1955 A ge:67 Y S ex:Female Date:07/17/2023 Address:[address] [place], [place] [phone] Pcp:Indira Shanks MD Subjective: * Chief Complaints: * 1 . Patient presents today for gerd. * Medical History: Objective: * Vitals: Assessment: Plan: * Treatment: * * The named appointment provid er may or may not be the originator of this progress note, and it is not deemed complete until electronically signed by the appointment provider. Sign off status: Pending * Provider: Naseem Skelton MD Date: 0 07/17/2023 Generated for Printi ng/Favijaya/eTransmitting on: 0 01/02/2025 09:38 AM EDT
--- NOTE | ~2025-01-02 | CT_ITS ---
EXAMINATION: CT ANGIOGRAM HEAD AND NECK CLINICAL INFORMATION: Dizziness and nystagmus status post neck manipulation. 69-year-old female. COMPARISON: None available. Correlation made with MR brain angiography 03/20/2020. TECHNIQUE: Noncontrast axial imaging of the head was performed. This was followed by test bolus sequences and head and neck intravenous bolus administration 70 mL of Omnipaque 350. Helical imaging was performed in the axial plane from the aortic arch to the skull vertex. The data was processed at the pathology technologist's workstation for generation of MIP sequences. Angled MIPs and volume rendered reformatted images were also generated at an offline 3D workstation. Stenoses are assessed in accordance with NASCET criteria unless otherwise indicated. This CT examination was performed using dose optimization techniques as appropriate, variously including the following: *Automated exposure control *Adjustment of mA and/or kV according to patient size (this includes techniques or standardized protocols for targeted exams where dose is matched to indication/reason for exam; i.e. extremities or head) *Use of iterative reconstruction technique FINDINGS: NONCONTRAST HEAD CT: There is no evidence of intracranial hemorrhage or extra-axial fluid collection. There is no mass effect, or edema. No CT evidence of acute territorial infarct. Ventricles, sulci, and cisterns are normal in size and configuration for patient age. No hydrocephalus. No midline shift. No significant white matter abnormalities. Globes and orbital contents image normally. No extracranial soft tissue abnormalities. The paranasal sinuses, mastoid air cells, and tympanic cavities are normally aerated. No suspicious bony abnormalities. Moderate degenerative changes of the right TM joint. NECK CTA: -AORTIC ARCH: Normal in caliber. Minimal atheromatous calcification. Three-vessel branching pattern. -GREAT VESSEL ORIGINS: Widely patent. No stenosis. -RIGHT COMMON CAROTID ARTERY: Normal in course and caliber to the level of the bifurcation. -CERVICAL RIGHT INTERNAL CAROTID ARTERY: Normal opacification without focal stenosis or occlusion. -LEFT COMMON CAROTID ARTERY: Normal in course and caliber to the level of the bifurcation. -CERVICAL LEFT INTERNAL CAROTID ARTERY: Normal opacification without focal stenosis or occlusion. -CERVICAL RIGHT VERTEBRAL ARTERY: Non dominant. Normal in course and caliber into the skull base. No evidence of dissection. -CERVICAL LEFT VERTEBRAL ARTERY: Dominant. Normal in course and caliber into the skull base. No evidence of dissection. OTHER, SOFT TISSUES: -No lymphadenopathy or mass. No abnormal fluid collection or soft tissue swelling. -Normal thyroid. -Imaged superior mediastinal structures normal. -Imaged lung apices clear. CTA OF THE BRAIN: -INTRACRANIAL INTERNAL CAROTID ARTERIES: No focal stenosis or occlusion. -RIGHT ANTERIOR CEREBRAL ARTERY: Normal A1 segment. Normal arborization of the distal segments. -LEFT ANTERIOR CEREBRAL ARTERY: Normal A1 segment. Normal arborization of the distal segments. -ANTERIOR COMMUNICATING ARTERY: Normal. -RIGHT MIDDLE CEREBRAL ARTERY: Normal M1 segment of the MCA without focal stenosis or occlusion. Normal bifurcation. Normal arborization of the distal segments. -LEFT MIDDLE CEREBRAL ARTERY: Normal M1 segment of the MCA without focal stenosis or occlusion. Normal bifurcation. Normal arborization of the distal segments. -RIGHT VERTEBRAL ARTERY V4: Normal in course and caliber. Normal PICA branch. -LEFT VERTEBRAL ARTERY V4: Normal in course and caliber. Normal PICA branch. Both joint form the basilar artery. -BASILAR ARTERY: Normal without focal stenosis or occlusion. Normal appearance of the proximal superior cerebellar arteries. Normal basilar tip. -RIGHT POSTERIOR CEREBRAL ARTERY: The P1 segment is diminutive. origin of the WOODWORK TEACHER with robust opacification of the posterior communicating artery. Normal opacification of the distal WOODWORK TEACHER segments. -LEFT POSTERIOR CEREBRAL ARTERY: Normal P1 segment. Normal opacification of the distal WOODWORK TEACHER segments. -POSTERIOR COMMUNICATING ARTERIES: The right as above. The left is small but patent. Normal opacification of the superior sagittal, straight, transverse, and sigmoid sinuses. No venous thrombosis. No space-occupying hemorrhage or definite evolving infarct. CT/CT angio head neck IMPRESSION: NON-CONTRAST HEAD CT: 1. No intracranial hemorrhage. No CT evidence of acute territorial infarct. CTA NECK: 1. No evidence of stenosis, occlusion, dissection, or aneurysm of the major cervical arterial vasculature. CTA HEAD: 1. No evidence of stenosis, occlusion, dissection, or aneurysm of the major intracranial arterial vasculature. 2. Major cortical and dural venous sinuses are patent. Electronically signed by: Mino Talbot MD 01/02/2025 10:24 AM EDT
--- NOTE | ~2025-01-02 | XR_ITS ---
EXAMINATION: XR CHEST CLINICAL INFORMATION: cough COMPARISON: January 02, 2017 TECHNIQUE: PA and lateral views FINDINGS: Hyperinflation. No consolidation, pleural effusion or pneumothorax. Cardiomediastinal silhouette size is normal. S-shaped curvature of the cervical thoracic and lumbar spine with a levoconvex curvature in the upper cervical thoracic and dextroconvex curvature at the thoracolumbar junction. Mild multilevel spondylosis. Osteopenia. XR/XR chest 2V IMPRESSION: Hyperinflated lungs without acute airspace disease. Scoliosis, moderate to severe. Electronically signed by: Addy Estevez MD 01/02/2025 09:20 AM EDT
[2025-01-02 07:39] VITALS: BP 179/77; PULSE 86; RESP 18; TEMP 36.7; O2SAT 98; BMI 20.3
--- NOTE | 2025-01-02 07:54 | ED_ITS ---
HPI - General Adult General Chief complaint: General Medical Stated complaint: congestion, dizziness Time Seen by Provider: 01/02/25 07:51 Source: patient Mode of arrival: ambulatory Limitations: no limitations History of Present Illness ED Provider: Tomasa Cobb PA-C HPI narrative: This is a 69 year old female with a history of migraines, cervical neck degeneration, and lactose intolerance that presents with a concern for dizziness. She has had an upper respiratory infection for two days. This morning she was woken up by her dogs at 4:30 am and she felt unsteady and as if her eyes were whipping to the side after she stood up and ambulated to the restroom. She was concerned because she had deep tissue US and traction therapy at PT yesterday on her cervical spine. She mentions that she only has one functioning kidney that is followed by Dr. Luis Eason. Currently, she denies any nausea, vomiting, or dizziness. She denies any changes to hearing or vision but endorses a feeling of fullness in her ears and maxillary sinuses as well as post nasal drip. She denies chest pain or shortness of breath. She endorses a mild dry cough but denies increased work of breathing. She endorses an increased feeling of anxiety. She endorses diarrhea last night secondary to lactose ingestion but denies current abdominal pain. She denies any headaches. She endorses neck pain on the right side which is chronic for her but denies any weakness, or new joint pain. Related Data Home Medications ?Medication ?Instructions ?Recorded ?Confirmed cyclobenzaprine 5 mg tablet 5 mg PO BEDTIME PRN 03/14/23 fluticasone propionate 50 2 spray intranasal DAILY 03/14/23 mcg/actuation nasal spray,suspension gabapentin 250 mg/5 mL oral 125 mg PO DAILY 07/02/20 1 05/15/22 solution sumatriptan succinate 25 mg tablet 25 mg PO DAILY PRN Migraine 07/02/20 06/30/23 Headache lorazepam 0.5 mg tablet (Ativan) 0.5 mg PO BEDTIME PRN 01/21/21 03/14/23 omeprazole 10 mg capsule,delayed 10 mg PO DAILY 06/30/23 release amitriptyline 10 mg tablet 10 mg PO BEDTIME 03/14/23 0 3/22/24 Previous Rx's ?Medication ?Instructions ?Recorded linezolid 600 mg tablet 600 mg PO BID 7 days #14 tab s 06/16/21 estradiol 0.01% (0.1 mg/gram) 1 g vaginal 3XW 90 days #42.5 grams 04/19/24 vaginal cream levofloxacin 500 mg tablet 500 mg PO Q24H UTI 10 days #10 tabs 04/19/24 Allergies Allergy/AdvReac Type Severity Reaction Status Date / Time latex Allergy Intermediate Rash Verified 01/02/25 07:40 Penicillins (PENICILLINS) Allergy Intermediate Hives Verified 01/02/25 07:40 codeine (CODEINE) Allergy Unknown Unknown Verified 01/02/25 07:40 Iodinated Contrast Media (IV Allergy Unknown Unknown Verified 01/02/25 07:40 Dye, Iodine Containing) meperidine (From Demerol) Allergy Unknown Unknown Verified 01/02/25 07:40 nitrofurantoin (From Allergy Unknown Unknown Verified 01/02/25 07:40 Macrobid) Sulfa (Sulfonamide Allergy Unknown Unknown Verified 01/02/25 07:40 Antibiotics) (SULFA (SULFONAMIDE ANTIBIOTICS)) Review of Systems 2 Constitutional: Constitutional: Reports as per HPI Eyes: Eyes: Reports as per HPI ENT: Reports as per HPI Cardiovascular: Cardiovascular: Reports as per HPI Respiratory: Respiratory: Reports as per HPI Gastrointestinal: Gastrointestinal: Reports as per HPI Genitourinary: Genitourinary: Reports as per HPI Musculoskeletal: Musculoskeletal: Reports as per HPI Integumentary/Breasts: Skin/Breast: Reports as per HPI Neurologic: Reports as per HPI Psychiatric: Psychiatric: Reports as per HPI Hematologic/Lymphatic: Hematologic/Lymphatic: Reports as per HPI Allergic/Immunologic: Allergic/Immunologic: Reports as per HPI PMFSH Past Medical History Attestation statement: The following information was validated with the patient. Source: old records reviewed and nursing notes reviewed Medical History Back pain Fibromyalgia GERD (gastroesophageal reflux disease) Cervical spondylosis Osteopenia Depression Anxiety Atrophy of left kidney Sexual arousal disorder Pelvic pain Hydronephrosis Frequent UTI delivery delivered Surgical History History of esophagogastroduodenoscopy (EGD) H/O colonoscopy Hx of varicose vein ligation Hx of section Hx of tonsillectomy Family History Family History Mother HTN (hypertension) Heart attack Diabetes Father Esophagus cancer Social History Social History Alcohol intake: never Patient Tobacco Use Status: Never used Tobacco Advance Directives: No Advance Directives Information Provided: Yes Do you have a plan to hurt others: No Plan Physical Exam ED Vital Signs: Vital Signs - 24 hr 01/02/25 07:39 01/02/25 10:13 01/02/25 11:16 Temperature 98.0 F 98.2 F 98.2 F Pulse Rate 86 92 92 Respiratory Rate 18 20 20 Blood Pressure 179/77 H 141/64 H 141/64 H Pulse Oximetry 98 98 98 Oxygen Delivery Method Room Air Room Air Room Air BMI result Body Mass Index 20.3 Const General: cooperative, comfortable, no acute distress, alert and awake; No acute distress Orientation/consciousness: oriented to person, oriented to place, oriented to time and patient oriented x3 HENMT Head: Yes normal to inspection, Yes normocephalic and Yes atraumatic Ears: hearing grossly normal bilaterally, external ears normal and TM's normal bilaterally General nose exam: Normal external nose present, Normal nares present and No nasal discharge present Face and sinus: Yes normal facial exam Mouth: Normal oral and palatal mucosa present, oropharynx normal and moist mucous membranes Throat: Yes posterior oropharynx normal and Yes uvula midline Eyes General: appearance normal, both eyes and all related structures Periorbital: periorbital findings normal Sclerae: sclerae normal Pupils: Equal, round and reactive pupils present Direct Ophthalmoscopy: normal light reflex and no photophobia Neck Neck: Yes normal visual inspection, Yes no lymphadenopathy and Yes other (Tight posterior lateral neck muscles. ) Lymphatic: no lymphadenopathy noted Resp Effort & Inspection: normal respiratory effort, able to speak in complete sentences and no audible wheezes Auscultation: clear to auscultation bilaterally, no crackles, no rales and no rhonchi Cardio Rate: regular rate Heart sounds: S1 normal heart sound present, S2 normal heart sound present, no gallops, no murmurs and no rubs GI Inspection: Yes normal to inspection and No distended Palpation (GI): Soft to palpation and nontender Auscultation: normal bowel sounds Back/Spine/Pelvis Cervical Spine: pain with cervical ROM Skin General skin exam: no rashes or lesions noted Neuro General: oriented to person, oriented to place, oriented to time, patient oriented x3, moves all extremities and CN's II-XI intact bilaterally Cranial nerves: Yes Equal, round and reactive pupils present Motor exam (neuro): 5/5 motor strength present throughout and Normal motor muscle tone present throughout Extrem General: Yes normal to inspection and Yes full ROM Medications Administered Discontinued Medications Generic Name Dose Route Start Last Admin Trade Name Garrick PRN Reason Stop Dose Admin Sodium Chloride 1,000 mls @ 999 mls/hr 01/02/25 09:15 01/02/25 10:28 Ns IV 01/02/25 10:15 Infused .Q1H1M BELTRAN Infusion Iohexol 100 ml 01/02/25 10:03 01/02/25 10:04 Iohexol 350 Mg/Ml 100 Ml Infus..Btl IV 01/02/25 10:04 70 ml ONCE ONE Administration Lorazepam 1 mg 01/02/25 08:52 01/02/25 09:14 Lorazepam 1 Mg Tablet PO 01/02/25 08:53 Not Given ONCE ONE Lorazepam 0.5 mg 01/02/25 09:22 01/02/25 09:26 Lorazepam 0.5 Mg Tablet PO 01/02/25 09:23 0.5 mg ONCE ONE Administration Medical Decision Making Medical Decision Making [facility] Narrative: Patient is a 69 year old assigned female at with a history of migraines, cervical neck degeneration, and lactose intolerance presenting to the emergency department today with now resolved dizziness and nystagmus. Patient's physical exam was as noted in the physical exam portion of this note and consistent with a sinusitis and probable vertigo. Patient's blood work was unremarkable. Patient's urine showed no acute process. Patient's chest x-ray showed no acute process. Patient's CTA of the head and neck showed no acute process. Patient's COVID-19, influenza, and strep testing were negative. I am suspicious the patient has a viral sinusitis and subsequent vertigo. Patient has no evidence of stroke at this time. I explained my physical exam findings as well as all test results to the patient. I answered all questions asked by the patient. I stressed the importance of the patient taking her medication as directed (either prescribed or as the over the counter packaging recommends). I stressed the importance of the patient following up with her primary care provider. I stressed the importance of the patient returning to the emergency department immediately if her symptoms were to worsen or if she were to develop any dizziness, shortness of breath, difficulty breathing, chest pain, blurry vision, loss of vision, nausea, vomiting, abdominal pain, fever, chills, back pain, or any other complaints. Patient verbalized agreement and understanding with this treatment plan and discharge. Differential Diagnosis Differential Diagnoses: The differential diagnosis associated with the presentation includes Nystagmus Vertigo Sinusitis Admission/Observation Consideration of admission/observation: Escalation of care including admission/observation considered Patient would have been admitted to the hospital had her work up had any findings where hospital admission was appropriate and her clinical presentation warranted hospital admission. Lab Data [facility] Lab Attestation statement: I reviewed the patient's lab results. My interpretation of these results are in the [facility] Rationale portion of this note. 01/02/25 09:07 01/02/25 09:07 Labs: Lab Results 01/02/25 01/02/25 01/02/25 Range/Units 08:11 09:07 09:40 WBC 5.2 (4.8-10.8) X10*3/uL RBC 4.08 L (4.20-5.50) X10*6/uL Hgb 13.7 (12.0-16.0) g/dl Hct 37.8 (37.0-47.0) % MCV 92.6 (80.0-98.0) fL MCH 33.6 H (27.0-33.0) pg MCHC 36.2 H (31.0-35.0) g/dl RDW 12.3 (11.0-16.0) % Plt Count 169 (160-400) X10*3/uL MPV 9.2 L (9.4-12.3) fL Immature Gran % (Auto) 0.4 (0.0-0.4) % Neut % (Auto) 75.2 H (45-73) % Lymph % (Auto) 17.8 L (20-40) % Lee % (Auto) 5.0 (2-11) % Eos % (Auto) 0.6 (0-4) % Baso % (Auto) 1.0 (0-2) % Lymph # (Auto) 0.9 L (1.2-4.9) X10*3/uL Lee # (Auto) 0.3 (0.1-1.2) X10*3/uL Eos # (Auto) 0.0 (0.0-0.4) X10*3/uL Baso # (Auto) 0.1 (0.0-0.2) X10*3/uL Abs Immat Gran (auto) 0.02 (0.00-0.03) X10*3/uL Absolute Neuts (auto) 3.9 (2.0-8.3) x10*3/uL Absolute Nucleated RBC 0.000 (0.0-0.012) X10*3/uL Nucleated RBC % (auto) 0.0 (0.0-0.2) /100WBC Sodium 145 (135-145) mmol/L Potassium 3.6 (3.3-5.1) mmol/L Chloride 110 H (96-108) mmol/L Carbon Dioxide 27 (22-29) mmol/L Anion Gap 12 (12-20) BUN 15 (9-16) mg/dL Creatinine 0.92 (0.5-1.4) mg/dL Estim Creat Clear Calc 53.6 Estimated GFR > 60 Random Glucose 100 (60-115) mg/dL Calcium 9.9 (8.4-10.2) mg/dL Magnesium 2.0 (1.6-2.6) mg/dL Total Bilirubin 0.5 (0.0-1.0) mg/dL AST 35 H (5-31) U/L ALT 28 (0-31) U/L Alkaline Phosphatase 84 (39-117) U/L Total Protein 7.3 (6.5-8.0) g/dL Albumin 5.0 (3.5-5.0) g/dL Urine Color Yellow Urine Appearance Clear Urine pH 6.0 (5.0-9.0) Ur Specific [place] <= 1.005 (1.005-1.025) Urine Protein Negative (Neg-Trace) mg/dL Urine Glucose (UA) Negative (Negative) mg/dL Urine Ketones Negative (Negative) mg/dL Urine Blood Negative (Negative) Urine Nitrite Negative (Negative) Ur Leukocyte Esterase Negative (Negative) COVID-19 (KEVIN) Negative (Negative) COVID-19 Clin Com See Note Influenza Type A (JEFF) Negative (Negative) Influenza Type B (JEFF) Negative (Negative) Influenza A & B Note See Note S. pyogenes GrpA JEFF Negative (Negative) Independent Interpretation I performed an independent interpretation of an: Plain X-Ray and CT Scan Interpretation: My interpretation is in agreement with the radiologist's impression of these imaging studies. L Reason for Exam: dizziness / nystagmus s/p neck manipulation EXAMINATION: CT ANGIOGRAM HEAD AND NECK CLINICAL INFORMATION: Dizziness and nystagmus status post neck manipulation. 69-year-old female. COMPARISON: None available. Correlation made with MR brain angiography 03/20/2020. TECHNIQUE: Noncontrast axial imaging of the head was performed. This was followed by test bolus sequences and head and neck intravenous bolus administration 70 mL of Omnipaque 350. Helical imaging was performed in the axial plane from the aortic arch to the skull vertex. The data was processed at the seating and mobility technologist's workstation for generation of MIP sequences. Angled MIPs and volume rendered reformatted images were also generated at an offline 3D workstation. Stenoses are assessed in accordance with NASCET criteria unless otherwise indicated. This CT examination was performed using dose optimization techniques as appropriate, variously including the following: *Automated exposure control *Adjustment of mA and/or kV according to patient size (this includes techniques or standardized protocols for targeted exams where dose is matched to indication/reason for exam; i.e. extremities or head) *Use of iterative reconstruction technique FINDINGS: NONCONTRAST HEAD CT: There is no evidence of intracranial hemorrhage or extra-axial fluid collection. There is no mass effect, or edema. No CT evidence of acute territorial infarct. Ventricles, sulci, and cisterns are normal in size and configuration for patient age. No hydrocephalus. No midline shift. No significant white matter abnormalities. Globes and orbital contents image normally. No extracranial soft tissue abnormalities. The paranasal sinuses, mastoid air cells, and tympanic cavities are normally aerated. No suspicious bony abnormalities. Moderate degenerative changes of the right TM joint. NECK CTA: -AORTIC ARCH: Normal in caliber. Minimal atheromatous calcification. Three- vessel branching pattern. -GREAT VESSEL ORIGINS: Widely patent. No stenosis. -RIGHT COMMON CAROTID ARTERY: Normal in course and caliber to the level of the bifurcation. -CERVICAL RIGHT INTERNAL CAROTID ARTERY: Normal opacification without focal stenosis or occlusion. -LEFT COMMON CAROTID ARTERY: Normal in course and caliber to the level of the bifurcation. -CERVICAL LEFT INTERNAL CAROTID ARTERY: Normal opacification without focal stenosis or occlusion. -CERVICAL RIGHT VERTEBRAL ARTERY: Non dominant. Normal in course and caliber into the skull base. No evidence of dissection. -CERVICAL LEFT VERTEBRAL ARTERY: Dominant. Normal in course and caliber into the skull base. No evidence of dissection. OTHER, SOFT TISSUES: -No lymphadenopathy or mass. No abnormal fluid collection or soft tissue swelling. -Normal thyroid. -Imaged superior mediastinal structures normal. -Imaged lung apices clear. CTA OF THE BRAIN: -INTRACRANIAL INTERNAL CAROTID ARTERIES: No focal stenosis or occlusion. -RIGHT ANTERIOR CEREBRAL ARTERY: Normal A1 segment. Normal arborization of the distal segments. -LEFT ANTERIOR CEREBRAL ARTERY: Normal A1 segment. Normal arborization of the distal segments. -ANTERIOR COMMUNICATING ARTERY: Normal. -RIGHT MIDDLE CEREBRAL ARTERY: Normal M1 segment of the MCA without focal stenosis or occlusion. Normal bifurcation. Normal arborization of the distal segments. -LEFT MIDDLE CEREBRAL ARTERY: Normal M1 segment of the MCA without focal stenosis or occlusion. Normal bifurcation. Normal arborization of the distal segments. -RIGHT VERTEBRAL ARTERY V4: Normal in course and caliber. Normal PICA branch. -LEFT VERTEBRAL ARTERY V4: Normal in course and caliber. Normal PICA branch. Both joint form the basilar artery. -BASILAR ARTERY: Normal without focal stenosis or occlusion. Normal appearance of the proximal superior cerebellar arteries. Normal basilar tip. -RIGHT POSTERIOR CEREBRAL ARTERY: The P1 segment is diminutive. origin of the CELL TESTER with robust opacification of the posterior communicating artery. Normal opacification of the distal CELL TESTER segments. -LEFT POSTERIOR CEREBRAL ARTERY: Normal P1 segment. Normal opacification of the distal CELL TESTER segments. -POSTERIOR COMMUNICATING ARTERIES: The right as above. The left is small but patent. Normal opacification of the superior sagittal, straight, transverse, and sigmoid sinuses. No venous thrombosis. No space-occupying hemorrhage or definite evolving infarct. CT/CT angio head neck IMPRESSION: NON-CONTRAST HEAD CT: 1. No intracranial hemorrhage. No CT evidence of acute territorial infarct. CTA NECK: 1. No evidence of stenosis, occlusion, dissection, or aneurysm of the major cervical arterial vasculature. CTA HEAD: 1. No evidence of stenosis, occlusion, dissection, or aneurysm of the major intracranial arterial vasculature. 2. Major cortical and dural venous sinuses are patent. Electronically signed by: Mino Talbot MD 01/02/2025 10:24 AM EDT Dictated By: Mino Talbot MD Signed By: Electronically signed by Mino Talbot MD 01/02/25 1024 Reason for Exam: cough EXAMINATION: XR CHEST CLINICAL INFORMATION: cough COMPARISON: January 02, 2017 TECHNIQUE: PA and lateral views FINDINGS: Hyperinflation. No consolidation, pleural effusion or pneumothorax. Cardiomediastinal silhouette size is normal. S-shaped curvature of the cervical thoracic and lumbar spine with a levoconvex curvature in the upper cervical thoracic and dextroconvex curvature at the thoracolumbar junction. Mild multilevel spondylosis. Osteopenia. XR/XR chest 2V IMPRESSION: Hyperinflated lungs without acute airspace disease. Scoliosis, moderate to severe. Electronically signed by: Addy Estevez MD 01/02/2025 09:20 AM EDT Dictated By: Addy Tenorio MD Signed By: Electronically signed by Addy Jeter MD 01/02/25 0920 Radiology Impression Discussion of test interpretation with radiology: I have reviewed the radiologist's reading. Discharge Plan Discharge Clinical Impression: Vertigo, Sinusitis Patient Disposition: Home, Self-Care Instructions: Vertigo (DC) Additional Instructions: Your CT angio of the head and neck showed no acute process / concern for stroke. Your lab work was unremarkable. IF you are prescribed home medications and/or you are taking over the counter medications at home - it is very important you continue to do so as prescribed / directed unless told otherwise. Follow up with your primary care provider. Return to the emergency department immediately if your symptoms worsen or if you develop any numbness, tingling, dizziness, shortness of breath, difficulty breathing, chest pain, blurry vision, loss of vision, nausea, vomiting, abdominal pain, fever, chills, back pain, or any other complaints. Please see the information below about our Patient Portal. If you are not yet enrolled in the [facility] Patient Portal, you will receive an enrollment email invitation following your visit to any [facility] setting. You may also self-enroll in the Patient Portal by visiting our website: [email or web address] The following information is required to access the Patient Portal: - Your [facility] Medical Record Number - Your personal home email address (must match what is in your electronic medical record, Registration staff can assist with this) - Name - Date of Capabilities of the Patient Portal: - Message some providers - View upcoming appointments - Access your health summary, medical history, and visit history - View current conditions and allergies - View procedure and lab results - View your medications, including guidelines, side effects, and precautions - Complete pre-appointment questionnaires requested by your provider - Ready summary reports of your office visits and procedures To access the Patient Portal Mobile [employer], follow these directions: - Search [place] in the [employer] Store or [employer] Store - Download the Alex - Search for [facility] - Enter your login/password Prescriptions: No Action linezolid 600 mg tablet 600 mg PO BID 7 Days Qty: 14 0RF cyclobenzaprine 5 mg tablet 5 mg PO BEDTIME PRN fluticasone propionate 50 mcg/actuation spray,suspension 2 spray intranasal DAILY sumatriptan succinate 25 mg tablet 25 mg PO DAILY PRN (Reason: Migraine Headache) gabapentin 250 mg/5 mL solution 125 mg PO DAILY lorazepam [Ativan] 0.5 mg tablet 0.5 mg PO BEDTIME PRN omeprazole 10 mg capsule,delayed release(DR/EC) 10 mg PO DAILY amitriptyline 10 mg tablet 10 mg PO BEDTIME estradiol 0.01 % (0.1 mg/gram) cream 1 g vaginal 3XW 90 Days Qty: 42.5 1RF Rx Instructions: Use pea sized amount and apply 3 times per week. Dispose of applicator. levofloxacin 500 mg tablet 500 mg PO Q24H 10 Days Qty: 10 0RF Rx Instructions: To be used if UTI symptoms Referrals: Shonda Harley MD [Primary Care Provider, Family Practice] Stand Alone Forms: Work/School Release Interventions: ED Discharge Assessment Last Done: 01/02/25 11:16 Discharge Date/Time: 01/02/25 11:16 Print Language: Emirati
[2025-01-02 08:32] LABS: IDNOW Serial# 08D9AD1C; Strep A Nucleic Acid Negative (Negative)
[2025-01-02 08:35] LABS: COVID-19 Test Negative (Negative); IDNOW Serial# 55D5AD1C
[2025-01-02 08:37] LABS: IDNOW Serial# 58CA691E; Influenza B2 Negative (Negative)
[2025-01-02 09:12] LABS: MANUAL DIFF FLAG NO
[2025-01-02 09:19] LABS: Hematocrit 37.8 % (37.0-47.0); Hemoglobin 13.7 g/dl (12.0-16.0); Imm Gran Abs Auto 0.02 X10*3/uL (0.00-0.03); Imm Gran Pct Auto 0.4 % (0.0-0.4); Lymphocytes Absolute Auto 0.9 X10*3/uL (1.2-4.9); Mean Corpuscular HGB Conc 36.2 g/dl (31.0-35.0); Mean Corpuscular Hemoglobin 33.6 pg (27.0-33.0); Mean Corpuscular Volume 92.6 fL (80.0-98.0); NRBC Abs Auto 0.000 X10*3/uL (0.0-0.012); NRBC Pct Auto 0.0 /100WBC (0.0-0.2); Platelet Count 169 X10*3/uL (160-400); Red Blood Count 4.08 X10*6/uL (4.20-5.50); White Blood Count 5.2 X10*3/uL (4.8-10.8)
--- NOTE | 2025-01-02 09:23 | PC.NURSE ---
Patient refused Ativan 1mg PO, requested smaller dose of Ativan 0.5mg PO. Spoke with PRADEEP Pascual. Order entered.
[2025-01-02 09:33] LABS: Alanine Aminotransferase 28 U/L (0-31); Albumin Level 5.0 g/dL (3.5-5.0); Alkaline Phosphatase 84 U/L (39-117); Anion Gap 12 (12-20); Aspartate Amino Transferase 35 U/L (5-31); Blood Urea Nitrogen 15 mg/dL (9-16); Calcium 9.9 mg/dL (8.4-10.2); Carbon Dioxide 27 mmol/L (22-29); Chloride 110 mmol/L (96-108); Creatinine Clr Calc Pharmacy 53.6; Estimated Glomerular Filt Rate > 60; Magnesium 2.0 mg/dL (1.6-2.6); Potassium 3.6 mmol/L (3.3-5.1); Sodium 145 mmol/L (135-145); Total Protein 7.3 g/dL (6.5-8.0)
--- OUTSIDE RECORDS SUMMARY | 2025-01-02 09:39 | XMS_ITS | Clinical Summary ---
Author Organization [facility] Address [address] [place] [id number] Phone Care Team Providers Care Lock Up Worker Name Role Phone Shonda Harley MD Primary Care Provider [phone] Social History Tobacco Use Types Packs/Day Years Used Date Smoking Tobacco: Never Assessed Comments No Sex and Gender Information Value Date Recorded Sex Assigned at Not on file Legal Sex Female 5:56 AM EST Gender Identity Not on file Sexual Orientation Not on file Obstetrics History Para Term AB IAB SAB Ectopic Multiple Livin g Live Births 1 Last Filed Vital Signs Vital Sign Reading Time Taken Comments Blood Pressure - - Pulse - - Temperature - - Respiratory Rate - - Oxygen Saturation - - Inhaled Oxygen Concentration - - Weight 59 kg (130 lb) 08/29/2024 9:36 AM EDT Height 170.2 cm (5' 7 ) 08/29/2024 9:36 AM EDT Body Mass Index 20.36 08/29/2024 9:36 AM EDT Plan of Treatment Health Maintenance Due Date Last Done Comments Cholesterol Screening (Lipid Panel) 03/13/2022 Colorectal Cancer Screening: Colonoscopy 03/13/2022 Falls Risk Assessment 03/13/2022 Hepatitis C Screening 03/13/2022 Social Influencers of Health Screening 03/13/2022 Depression Screening 04/10/2024 Zoster Vaccines (2 of 2) 11/21/2024 09/26/2024 COVID-19 Vaccine ( season) 2024 05/21/2022, 08/22/2021, 02/08/2021, Additional history exists Influenza Vaccine (#1) 2024 4, 01/05/2023, 01/03/2022, Additional history exists Breast Cancer Screening 08/29/2026 08/30/19 25, 08/07/2023, 08/04/2022, Additional history exists DTaP,Tdap,and Td Vaccines (3 - Td or Tdap) 07/30/2027 07/29/2017, 10/09/2008 RSV Immunization Adult Patients (1 - 1-dose 75+ series) 09/06/2030 Osteoporosis Screening (Bone Density Screening) 02/19/2032 02/18/2022, 09/09/2016 Pneumococcal Vaccine: 50+ Years Completed 02/24/2022, 11/27/2020 HIB Vaccines Aged Out No longer eligi ble based on patient's age to complete this topic HPV Vaccines Aged Out No longer eligi ble based on patient's age to complete this topic Hepatitis A Vaccines Aged Out No long er eligible based on patient's age to complete this topic Hepatitis B Vaccines Aged Out No long er eligible based on patient's age to complete this topic IPV Vaccines Aged Out No longer eligi ble based on patient's age to complete this topic MMR Vaccines Aged Out No longer eligi ble based on patient's age to complete this topic Meningococcal ACWY Vaccine Aged Out N o longer eligible based on patient's age to complete this topic Meningococcal B Vaccine Aged Out No l onger eligible based on patient's age to complete this topic RSV Immunization Patients Under 20 months Aged Out No longer eligible based on patient's age to complete this topic Varicella Vaccines Aged Out No longer eligible based on patient's age to complete this topic Procedures Procedure Name Priority Date/Time Associated Diagnosis Comments MG MAMMO DIGITAL SCREENING W KEIRAN BILAT Routine 08/29/2024 9:41 AM EDT Encounter for screening mammogram for breast cancer CRISELDA DEXA AXIAL SKELETON Routine 02/18/2022 4:05 PM EST Encounter for screening for osteoporosis from Last 3 Months or Most Recently Relevant to Health Maintenance Results * MG Mammo Digital Screening w Kieran bilat (08/29/2024 9:41 AM EDT) Anatomical Region Laterality Modality Breast Bilateral Mammography 08/29/2024 11:4 5 AM EDT Impressions 08/29/2024 11:53 AM EDT No mammographic evidence of malignancy. No suspicious interval change. A negative mammogram in the presence of a clinically suspicious palpable abnormality does not preclude the possibility of malignancy or alter the indications for biopsy. ASSESSMENT: BI-RADS 1: NEGATIVE RECOMMENDATION(S): 1: Routine screening mammogram BILATERAL in 1 year. [facility] [address], [address] -------- FINAL REPORT -------- Dictated By: Eleuterio Clayton Dictated Date: 08/29/2024 11:45 ET Assigned Physician: Eleuterio Clayton Reviewed and Electronically Signed By: Eleuterio Clayton Signed Date: 08/29/2024 11:53 ET Workstation ID: [id number] Transcribed By: Self Edit Transcribed Date: 08/29/2024 11:45 ET Narrative 08/29/2024 11:53 AM EDT EXAM: SCREENING MAMMOGRAPHY, BILATERAL HISTORY: SCREENING. No additional history. COMPARISON: 08/07/23, 08/04/22, 08/02/21, 07/29/20, 05/07/19, 03/12/18, 03/08/17, 02/15/16 TECHNIQUE: Synthesized CC and MLO projections of each breast. Tomosynthesis of each breast in the CC and MLO projections. ADDITIONAL IMAGING: Craniocaudal view of the left breast exaggerated toward the axilla using Tomosynthesis. Computer-aided detection was employed with the [employer] AI 3-D. TISSUE DENSITY: There are scattered areas of fibroglandular density. (BI-RADS category B) FINDINGS: RIGHT BREAST: No suspicious mass. No suspicious calcification. No distortion. Low-density asymmetry in the deep outer right breast is unchanged when compared to remote studies. LEFT BREAST: No suspicious mass. No suspicious calcification. No distortion. No additional suspicious left breast findings Procedure Note Eleuterio Clayton MD - 08/29/2024 EXAM: SCREENING MAMMOGRAPHY, BILATERAL HISTORY: SCREENING. No additional history. COMPARISON: 08/07/23, 08/04/22, 08/02/21, 07/29/20, 05/07/19, 03/12/18,03/08/17, 02/15/16 TECHNIQUE: Synthesized CC and MLO projections of each breast.Tomosynthesis of each breast in the CC and MLO projections. ADDITIONAL IMAGING: Craniocaudal view of the left breast exaggeratedtoward the axilla using Tomosynthesis. Computer-aided detection was employed with the [employer] AI 3-D. TISSUE DENSITY: There are scattered areas of fibroglandular density.(BI-RADS category B) FINDINGS: RIGHT BREAST: No suspicious mass. No suspicious calcification. No distortion.Low-density asymmetry in the deep outer right breast is unchanged whencompared to remote studies. LEFT BREAST: No suspicious mass. No suspicious calcification. No distortion. Noadditional suspicious left breast findings IMPRESSION: No mammographic evidence of malignancy. No suspicious interval change. A negative mammogram in the presence of a clinically suspicious palpableabnormality does not preclude the possibility of malignancy or alter theindications for biopsy. ASSESSMENT: BI-RADS 1: NEGATIVE RECOMMENDATION(S): 1: Routine screening mammogram BILATERAL in 1 year. [facility] location[facility] [address] [place], [address] -------- FINAL REPORT -------- Dictated By: Eleuterio Clayton Dictated Date: 08/29/2024 11:45 ET Assigned Physician: Eleuterio Clayton Reviewed and Electronically Signed By: Eleuterio Clayton Signed Date: 08/29/2024 11:53 ET Workstation ID: [id number] Transcribed By: Self Edit Transcribed Date: 08/29/2024 11:45 ET us Self Referral Sppl IMG BI PROCEDURES Final Resul t * CRISELDA DEXA AXIAL SKELETON (02/18/2022 4:05 PM EST) Anatomical Region Laterality Modality Mammography 02/18/2022 2:39 PM EST Narrative 02/18/2022 4:05 PM EST [facility] Diagnostic Imaging Department [address] [place] [address] Patient: FADUMO DE LA ROSA /Age/Sex: 1955 - 66 - F Unit#: [id number] Location/Status: SPDIMAM/REG CLI Mnemonic/Ordering Site: MAMDEXAAX/SPMAM Ordering Physician: INDIRA LUND MD [facility] Dexa Axial Skeleton - 02/18/22 - 151 History: Low estrogen state due to menopause. History of fracture. Comparison: 09/09/16 Findings: Bone densitometry is performed utilizing dual energy x-ray absorptiometry (DXA) in the [employer] in Shorts unit. The lumbar spine and proximal femora are evaluated in the AP projection. The FRAX questionaire was completed. The results indicate osteoporosis, with a lumbar spine T-score of -2.5. There has been a small, statistically significant decrease in bone mineral density in the left total femur since the previous study. The detailed DEXA report will be mailed to the referring physician's office. DualFemur FRAX: 10-year Probability of Fracture: Major Osteoporotic 15.3 percent Hip 2.4 percent. IMPRESSION: Osteoporosis. [id number] Dictating Physician: ERIN ARREOLA MD Electronically Signed by: ERIN ARREOLA MD Dic Date/Time: 02/18/221603 Sign date/Time: 02/18/221604 Procedure Note Erin Arreola MD - 05/12/2023 [facility] Diagnostic Imaging Department [address] [place] [address] Patient: MARELYBOLA STONEFEI Boucher /Age/Sex: 1955 - 66 - F Unit#: [id number] Location/Status: SPDIMAM/REG CLI Mnemonic/Ordering Site: MAMDEXAAX/SPMAM Ordering Physician: INDIRA LUND MD [facility] Dexa Axial Skeleton - 02/18/22 - 151 History: Low estrogen state due to menopause. History of fracture. Comparison: 09/09/16 Findings: Bone densitometry is performed utilizing dual energy x-ray absorptiometry(DXA) in the [employer] unit. The lumbar spine and proximal femora areevaluated in the AP projection. The FRAX questionaire was completed. The results indicate osteoporosis, with a lumbar spine T-score of -2.5.There has been a small, statistically significant decrease in bone mineraldensity in the left total femur since the previous study. The detailed DEXA reportwill be mailed to the referring physician's office. DualFemur FRAX: 10-year Probability of Fracture: Major Osteoporotic 15.3 percent Hip 2.4 percent. IMPRESSION: Osteoporosis. [id number] Dictating Physician: ERIN ARREOLA MD Electronically Signed by: ERIN ARREOLA MD Dic Date/Time: 02/18/22 160 Sign date/Time: 02/18/221604 us Indira Lund MD IMG BI PROCEDURES Jennifer l Result from Last 3 Months or Most Recently Relevant to Health Maintenance Insurance MEDICARE [facility] Care Teams Lock Up Worker Relationship Specialty Start Date End Date Shonda Harley MD [address] [address] PCP - General Internal Medicine 08/29/24
--- OUTSIDE RECORDS SUMMARY | 2025-01-02 09:39 | XMS_ITS | Clinical Summary ---
Author Organization [facility] Address [address] [place] [id number] Care Team Providers Care Jewelsmith Name Role Phone Indira Cowart MD Primary Care Provid er Allergies Active Allergy Reactions Criticality Noted Date Comments Adhesive Itching Medium Codeine Other reaction(s): Vomiting Iodinated Contrast Media Other reaction(s): Lightheadedness Meperidine Other reaction(s): Tachycardia Penicillins Hives High Sulfur Hives Medium Medications SUMAtriptan (IMITREX) 25 mg tablet sumatriptan 25 mg tablet Active amitriptyline (ELAVIL) 10 mg tablet TAKE 1/2 TO 1 TABLET ONCE A DAY ORALLY 30 DAY(S) 2 03/19/20 18 Active calcium carbonate-vitam in D3 (CALTRATE 600 + D) 600 mg (1,500 mg)-800 unit tablet,chewable daily. Acti ve cyclobenzaprine (FLEXERIL) 5 mg tablet cyclobenzaprine 5 mg tablet Take 1 tablet as needed by oral route as needed for 30 days. Active cholecalciferol , vitamin D3, (VITAMIN D3) 1,000 unit capsule Take 1,000 Units by mouth daily. Active magnesium 250 mg tablet Take by mouth. Activ e acetaminophen (TYLENOL) 325 mg suppository Activ e estradiol (ESTRACE) 0.01 % (0.1 mg/gram) vaginal cream 1 g. Active hyoscyamine (LEVSIN) 0.125 mg SL tablet hyoscyamine 0.[address] 1 tablet as needed by sublingual route. Active Active Problems Problem Noted Date Diagnosed Date Osteoporosis, postmenopausal 04/20/2018 Assessment & Plan (04/20/2018 4:40 PM EST): I reviewed the patient's blood work and bone density with her today's visit. She has osteoporosis in the spine and osteopenia in the hips. Overall she has had a statistically significant decline in her spine and hips. I will be ordering additional blood work and urine testing to evaluate for secondary causes for bone loss. This includes a calcium, creatinine level, bone specific alkaline phosphatase, vitamin D 25 [place], PTH magnesium and phosphorus, in addition she will have a fasting urine specimen and random urine calcium, creatinine and a collagen NTX. Her risk factors for bone loss to include her postmenopausal state, she has had a humerus fracture from a fall. She has been on proton pump inhibitor therapy off and on for 10 years for management of GERD. She is coming in with multiple questions in regards to various osteoporosis therapies. She has brought in pamphlets for both anabolic therapies and Prolia. I have informed her that both Tymlos and Forteo are anabolic bone building, they are synthetic PTH, this is a once daily injection for management of osteoporosis. Forteo has a maximum course of treatment of 2 years and Tymlos has a maximum course of treatment of 18 months and is only approved for women at this point in time. There is a black box warning of osteosarcoma of the bone associated with therapy. Prolia is an injection every 6 months for management of osteoporosis. Commonly there can be skin rashes, bladder infection, cellulitis or myalgias associated with therapy. I have informed her we have approximately 10 years of safety data with this particular drug. It tends to do a very good job with improving bone density however in reference to its short acting nature if discontinued from therapy bone density can potentially return back to pretreatment in approximately 18 months placing you at risk for fracture. She has a history of GERD, potentially IV bisphosphonate therapy can be a potential in the form of IV Reclast. I have informed her there can be a myalgias commonly reported with therapy, as she has not had any prior bisphosphonate exposure approximately 25% of the population will have an acute phase reaction and be flulike for several days after infusion. This does carry a risk of atypical femur fracture or osteonecrosis of the jaw. Last potential therapy would be raloxifene which is a selective estrogen receptor modulator which has modest coverage for bone health. Commonly that can be leg cramps worsening of hot flashes that this carry a risk of DVT associated with therapy, this is 60 mg once daily. I have informed her that this should not worsen her GERD if taken by mouth daily. Currently she gets adequate calcium from both diet and supplement. She has been encouraged to continue her physical activity as this is useful for bone health. She will follow-up in 2-3 months time, she may call the osteoporosis center should there be any additional questions or concerns in the interim. Anxiety disorder 02/10/2017 Gastroesophageal reflux disease 02/10/2017 Insomnia 02/10/2017 Migraine 02/10/2017 Scoliosis deformity of spine 02/10/2017 Immunizations Immunization Administration Dates Next Due Influenza, Quadrivalent 01/22/2017 Influenza, Unspecified 12/22/2015 Tdap 07/29/2017,10/09/2008 Family History Medical History Relation Comments Esophageal cancer Father Heart disease Father Diabetes Mother Heart disease Mother Relation Status Comments Father Mother Social History Tobacco Use Types Packs/Day Years Used Date Smoking Tobacco: Never Smokeless Tobacco: Never Alcohol Use Standard Drinks/Week Comments No 0 (1 standard drink = 0.6 oz pur e alcohol) ocassionally Comments No Sex and Gender Information Value Date Recorded Sex Assigned at Not on file Legal Sex Female 2:54 PM EDT Gender Identity Not on file Sexual Orientation Not on file Last Filed Vital Signs Vital Sign Reading Time Taken Comments Blood Pressure 160/87 04/20/2018 12:58 PM EST Pulse 85 04/20/2018 12:58 PM EST Temperature - - Respiratory Rate - - Oxygen Saturation - - Inhaled Oxygen Concentration - - Weight 59.7 kg (131 lb 11.2 oz) 019 12:58 PM EST Height 168.5 cm (5' 6.34 ) 04/20/2018 1 2:58 PM EST Body Mass Index 21.04 04/20/2018 12:58 PM EST Plan of Treatment Health Maintenance Due Date Last Done Comments Bone Density Screening 1955 CT Colonography 1955 Colonoscopy 1955 Colorectal Cancer Screening 1955 FIT-DNA (Cologuard) 1955 FIT 1955 FOBT 1955 Flex Sigmoidoscopy - 5y 1955 HIV Screening 1955 Pneumococcal Vaccine, 50+ Years (1 of 1 - PCV) 09/06/2005 Zoster Vaccines (1 of 2) 09/06/2005 Breast Cancer Screening 03/12/2020 03/12/2018 COVID-19 Vaccine (1 - 2023-2 5 season) 2024 Influenza Vaccine (#1) 2024 7, 12/22/2015 DTaP,Tdap,and Td Vaccines (3 - Td or Tdap) 07/30/2027 07/29/2017, 10/09/2008 HPV Vaccines Aged Out No longer eligi ble based on patient's age to complete this topic Hepatitis A Vaccines Aged Out No long er eligible based on patient's age to complete this topic Meningococcal Vaccine Aged Out No ching ameena eligible based on patient's age to complete this [place] [id number] Care Teams Jewelsmith Relationship Specialty Start Date End Date Indira Cowart MD [address] [address] PCP - General 04/20/18
--- OUTSIDE RECORDS SUMMARY | 2025-01-02 09:39 | XMS_ITS | Patient Health Record ---
Author Organization [facility] Address [address] [place] [address] Care Team Providers Care Process Line Operator Name Role Phone Osvaldo Shanks MD, Indira Primary Care Provider Unavailable Ady Skelton Jr Unavailable [phone] Allergies Allergen (clinical drug ingredient) Drug/Non Drug Allergy documented on EMR Reaction Allergy Type Onset Date Status Penicillin Unknown Drug Allergy Active Codeine Phosphate Unknown Drug Allergy Active Celestone Unknown Drug Allergy Active Dye DYE (uncoded) Unknown Allergy Active Latex latex (uncoded) Unknown Allergy Acti ve Sulfa Unknown Drug Allergy Active Reason For Referral No Information Medications Medication SIG (Take, Route, Frequency, Duration) Notes Start Date End Date Status Omeprazole 20 MG TAKE 1 CAPSULE BY MO UT TWICE A DAY FOR 30 DAYS for 90 Active Vitamin D Active Magnesium Active Imitrex Active tylenol Active Multivitamin Active Calcium Active Amitriptyline HCl 10 MG Oral for 90 Active Solifenacin Succinate 5 MG TAKE 1 TABLET BY MOUTH EVERY DAY Oral for 90 Active Immunizations Vaccine Route Administration Date Status Comme nts Influenza Unknown 02/04/2020 Administered Problems Problem Type SNOMED Code ICD Code Onset Dates Problem Status W/U Status Risk Notes Problem 655836634 Colon cancer screening (Z12.11) Active confirmed Problem Gastro-esophage al reflux disease without esophagitis (702658934) Gastro-esophageal reflux disease without esophagitis (K21.9) Active confirmed Problem 98090541 Irritable bowel syndrome without diarrhea (K58.9) Active confirmed Problem 834677075 Gastroesophageal reflux disease without esophagitis (K21.9) Active confirmed Plan Of Treatment Future Test Test Name Order Date COLONOSCOPY 03/19/2015 UPPER GI ENDOSCOPY 06/15/2023 Insurance Providers Payer Name Payer Address Payer Phone Subscriber Number Group Number Insured Name Patient Relationship to Insured Coverage Start Date Coverage End Date [facility] [address] [facility] [place] [address] [phone] [id number] MICKI HIDALGO Self - patient is the insured Medical (General) History Medical History History ICD Code Colonoscopy 07/03/15, normal, ten-year fo llowup 2025 GERD , upper endoscopy 11/10/04, no H. pyl janny. Anxiety Back pain/disc disease Migraine headaches Osteopenia Seasonal allergies Chronic kidney disease Surgical History Surgery Date(Month/Year) section Tonsillectomy Fundoplication
--- OUTSIDE RECORDS SUMMARY | 2025-01-02 09:39 | XMS_ITS | Clinical Summary ---
Author Organization [facility] Address [address] [address] Phone Care Team Providers Care Life Scientists Name Role Phone Sari Oswald Primary Care Provider Allergies Active Allergy Reactions Criticality Noted Date Comments Adhesive Itching Medium 01/02/2021 Gloves, Latex With Aloe Vera Itching Medium 01/02/2021 Codeine Vomiting 01/02/2021 Other reaction(s): Vomiting Gadolinium-Containing Contrast Media Unknown 04/20/2023 Iodinated Contrast Media Lightheadedness 01/02/2021 Other reaction(s): Lightheadedness Meperidine Palpitations Low 01/02/2021 Other reaction(s): Tachycardia Penicillin Unknown 04/20/2023 Penicillins Hives High 01/02/2021 Sulfa (Sulfonamide Antibiotics) Hives,Unknown Medium 01/02/2021 Sulfur Hives Medium 01/02/2021 Medications ALPRAZolam (XANAX) 0.5 MG tablet alprazolam 0.5 mg tablet TAKE 1 TABLET BY MOUTH EVERY DAY NEEDED FOR ANXIETY (MUST LAST 30 DAYS PER MD) Active cyclobenzaprin e (FLEXERIL) 5 MG tablet cyclobenzaprine 5 mg tablet TAKE 1 TABLET BY MOUTH EVERY DAY AT BEDTIME NEEDED Active estradioL (ESTRACE) 0.01 % (0.1 mg/gram) vaginal cream estradiol 0.01% (0.1 mg/gram) vaginal cream INSERT 1 GRAM BY VAGINAL ROUTE 3 TIMES PER WEEK Active omeprazole (PRILOSEC) 20 MG capsule daily. Active hyoscyamine (LEVSIN SL) 0.125 mg SL tablet hyoscyamine 0.[address] 1 TABLET(S) EVERY DAY BY SUBLINGUAL ROUTE NEEDED FOR 30 DAYS. Activ e phenazopyridin e (PYRIDIUM) 200 MG tablet phenazopyridine 200 mg tablet TAKE 1 TABLET BY MOUTH THREE TIMES A DAY DIRECTED FOR 3 DAYS Active nystatin (MYCOSTATIN) 100,000 units/mL suspension Take 5 mL (500,000 Units total) by mouth 4 (four) times a day. 120 mL 01/13/20 21 Active Additional Information Patient not taking.Reported on 04/20/2023 gabapentin (NEURONTIN) 250 mg/5 mL solution 2 mL daily. Active CALCIUM 26-VIT D3-MAGNESIUM 15 ORAL Calcium Active amitriptyline (ELAVIL) 10 MG tablet 04/06/20 23 Active nitrofurantoin (MACROBID) 100 MG capsule 1 capsule at bedtime with food Orally Once a day for 10 day(s) Active SUMAtriptan (IMITREX) 5 mg/actuation nasal spray Imitrex Active acetaminophen (TYLENOL 8 HOUR ORAL) tylenol Active multivit with minerals/lutei n (MULTIVITAMIN 50 PLUS ORAL) Multivitamin Act alma Active Problems Problem Noted Date Diagnosed Date Irritable bowel syndrome without diarrhea 2023 Osteoporosis, postmenopausal 04/20/2018 Overview (01/12/2021): Last Assessment & Plan: I reviewed the patient's blood work and [...] additional questions or concerns in the interim. Scoliosis deformity of spine 02/10/2017 Migraine 02/10/2017 Insomnia 02/10/2017 Anxiety disorder 02/10/2017 Gastroesophageal reflux disease 02/10/2017 Immunizations No known immunizations Social History Tobacco Use Types Packs/Day Years Used Date Smoking Tobacco: Never Smokeless Tobacco: Never Snuff Education Answer Date Recorded Are you interested in more education? Not on ervin e 08/06/2022 Are you concerned about learning? Not on file 08/06/2022 No 08/06/2022 No 08/06/2022 Digital Access Answer Date Recorded No 09/04/2022 No 09/04/2022 Reliable internet access at home? Not on file 09/04/2022 Device with a working camera? Not on file Comments Unknown Sex and Gender Information Value Date Recorded Sex Assigned at Not on file Legal Sex Female 10:48 AM EDT Gender Identity Not on file Sexual Orientation Not on file Last Filed Vital Signs Vital Sign Reading Time Taken Comments Blood Pressure 105/66 04/20/2023 5:29 PM EST Pulse 106 04/20/2023 5:29 PM EST Temperature 39 C (102.2 F) 04/20/2023 5:29 PM EST Respiratory Rate 20 04/20/2023 5:29 PM EST Oxygen Saturation 98% 04/20/2023 5:29 PM EST Inhaled Oxygen Concentration - - Weight 59 kg (130 lb) 01/31/2022 10:18 AM EDT Height 172.7 cm (5' 8 ) 01/31/2022 10:18 AM EDT Body Mass Index 19.77 01/31/2022 10:18 AM EDT Plan of Treatment Health Maintenance Due Date Last Done Comments LIPID PANEL 1955 DEPRESSION SCREENING 1967 HEPATITIS C SCREENING 09/06/1973 MAMMOGRAM 1995 COLOGUARD 09/06/2000 COLONOSCOPY 09/06/2000 COLORECTAL CANCER SCREENING 09/06/2000 FIT TEST 09/06/2000 FOBT 09/06/2000 SIGMOIDOSCOPY 09/06/2000 VIRTUAL COLONOSCOPY 09/06/2000 ZOSTER VACCINES (1 of 2) 09/06/2005 OSTEOPOROSIS SCREENING INITIAL (ONE-TIME) 09/06/2020 INFLUENZA VACCINE (#1) 2024 , 01/03/2022, 01/20/2021, Additional history exists COVID-19 VACCINE ( season) 2024 05/21/2022, 08/22/2021, 02/08/2021, Additional history exists Adult Td,Tdap Booster 07/30/2027 07/29/2017, 009 RSV VACCINE (1 - 1-dose 75+ series) 09/06/2030 PNEUMOCOCCAL VACCINES (50+ years) Completed 02/24/2022, 11/27/2020 SMOKING STATUS SCREENING (Once After 26 Yrs) Completed 04/20/2023 HEPATITIS A VACCINES Aged Out No long er eligible based on patient's age to complete this topic HIB VACCINES Aged Out No longer eligi ble based on patient's age to complete this topic MENINGOCOCCAL VACCINES (ACWY) Aged Out No longer eligible based on patient's age to complete this topic MENINGOCOCCAL VACCINES (B) Aged Out N o longer eligible based on patient's age to complete this topic Medical Devices Not on file Insurance Care Teams Life Scientists Relationship Specialty Start Date End Date Sari Oswald PA [address] [facility] [address] [place] [address] PCP - General Physician Embedded Developer 04/20/23 Additional Source Comments The information contained in this document represents components of the legal health record. It is not the complete legal health record.[facility]
--- OUTSIDE RECORDS SUMMARY | 2025-01-02 09:39 | XMS_ITS | Patient Health Record ---
Author Organization [facility] Address [address] [place] [address] Care Team Providers Care Crossband Layer Name Role Phone Mckayla PEREZ, Beth Primary Care Provider Unavail able Jostin Flaherty Unavailable [phone] Allergies Allergen (clinical drug ingredient) Drug/Non Drug Allergy documented on EMR Reaction Allergy Type Onset Date Status sulfamethoxazole / trimethoprim Bactrim hives Drug Allergy Active sulfa hives Drug Allergy Active Penicillin hives Drug Allergy Active codeine Codeine vomiting Drug Allergy Active latex rash Drug Allergy Active Adhesive Tape rash Drug Allergy Act alma Reason For Referral No Information Medications Medication SIG (Take, Route, Fr equency, Duration) Notes Start Date End Date Status Ativan Active Imitrex 25 MG Orally Active PriLOSEC 20 MG 1 capsule Orally Once a day Active Problems Problem Type SNOMED Code ICD Code Onset Dates Problem Status W/U Status Risk Notes Problem Hallux valgus (678067406) Hallux Valgus (735.0) Active confirmed Problem Ingrowing nail (047995390) Ingrowing Nail (703.0) Active confirmed Plan Of Treatment Pending Test Test Name Order Date 38032-Dajxxequ Plate 11/26/2013 95565-Irbfnfux Plate Each Additional Insurance Providers Payer Name Payer Address Payer Phone Subscriber Number Group Number Insured Name Patient Relationship to Insured Coverage Start Date Coverage End Date [facility] [address] [place] [address] [phone] [id number] Schaier, Fadumo Self - patient is the insured Medical (General) History Medical History History ICD Code Anxiety Fibromyalgia Migraines Reflux Measles Mumps Chicken pox Surgical History Surgery Date(Month/Year) vein ligation
[2025-01-02 09:48] LABS: Appearance Urine Clear; Glucose Urine UA Negative (Negative); PH 6.0 (5.0-9.0); Specific Gravity - Urine <= 1.005 (1.005-1.025)
[2025-01-02] MEDS: iohexoL 350 MG/ML 100 ML INFUS..BTL IV (10:04)
[2025-01-02 10:13] VITALS: BP 141/64; PULSE 92; RESP 20; TEMP 36.8; O2SAT 98
[2025-01-02 11:16] VITALS: BP 141/64; PULSE 92; RESP 20; TEMP 36.8; O2SAT 98
== END 2025-01-02 11:16 | disposition home or self-care (01) ==
PROVIDERS: Physician Assistant Medical; Emergency Provider Emergency Medicine; PCP Student in an Organized Health Care Education/Training Program
DX: R09.81 Nasal congestion (principal); R11.2 Nausea with vomiting, unspecified; J32.9 Chronic sinusitis, unspecified; M54.2 Cervicalgia; R05.9 Cough, unspecified; Z79.899 Other long term (current) drug therapy; Z11.52 Encounter for screening for COVID-19
CPT/HCPCS: 36415; 70496; 70498; 71046; 80053; 81003; 83735; 85025; 87502; 87635; 87651; 96360; 99284; 99285; Q9967

== ENCOUNTER → 2025-01-02 08:50 | Outpatient (BNV) | payer BC, SELFPAY | PROVIDERS: Emergency Provider Emergency Medicine; PCP Student in an Organized Health Care Education/Training Program; Visit Provider Radiology Diagnostic Radiology | DX: R42 Dizziness and giddiness (principal); M50.30 Other cervical disc degeneration, unspecified cervical region | CPT/HCPCS: 70496; 70498; 71046 ==

== ENCOUNTER 2025-03-20 15:58 | Outpatient (AMB) | payer BC, SELFPAY ==
--- OUTSIDE RECORDS SUMMARY | 2024-01-23 10:45 | XMS_ITS | Continuity of Care Document ---
Author Organization [facility] Address [address] [place] [address] Phone Care Team Providers Care Rn Plastics Name Role Phone Nirmal CHAUFFEUR MOTORBUS, Jocelyn Unavailable Unavailab le Allergies, Adverse Reactions, Alerts Substance Reaction Status Criticality latex Active No Information MEPERIDINE HCL Active No Informatio n codeine Active No Information Sulfa (Sulfonamide Antibiotics) Active No Information PENICILLIN Active No Information Medications Medication Instructions Dosage Effective Dates (start - stop) Status Comments IMITREX (unknown strength) Not Available - Active PRILOSEC (unknown strength) Not Available - Active XANAX (unknown strength) Not Available - Active Procedures Procedure Date Office/Outpt E&M Established 15 Mins-Tel emedicine CT & [place] Office/Outpt E&M Established 15 Mins- CT & [place] Duplex Scan-extrem Veins; Comp- CT & [place] Phleb Veins - Extrem - To - CT & [place] Ap Duplex Scan-extrem Veins; Uni/ CT & [place] A Endovenous Laser, 1st Vein- CT & [place] Office/Outpt E&M Established 10 Mins Mar Duplex Scan-extrem Veins; Uni/ Duplex Scan-extrem Veins; Uni/ Phleb Veins - Extrem - To 20 Endovenous Laser, 1st Vein Offic/outpt E&m Estab 5 Min Trial - Tele medicine Duplex Scan-extrem Veins; Comp Offic Cons New/estab Mod-hi 60 Advance Directives Directive Yes / No Effective Date File Name No Information Encounters Encounter Description Practice Location Reason(s) For Visit Diagnoses Date Provider Providers Copied on Encounter Office/Outpt E&M Established 15 Mins-Telemedi cine [place] & [place] [facility], [address] [place] [address] Dr Malik 1000SuDariela nesbitt MD, [id number], tel:[phone] [place] Venous insufficiency (chronic) (peripheral) 4 Molllo Banks. [address] [place] [address], [place], [id number], [place]. tel:[phone] Referring Provider: Shonda Harley MD, [address] [place] [address], [place], [address]. tel:[phone] Office/Outpt E&M Established 15 Mins- CT & [place] [facility], [address] [place] [address] Dr Malik 1000Dariela nesbitt [place], [id number], [place] tel:[phone] [place] Varicose veins of left lower extremity with inflammationD isorder of pigmentation, unspecifiedVa ricose veins of right lower extremity with inflammation 4 Chandan PEREZ RVT, RPVI Robert. [address] [place] [address], [place]azar [place], [id number], [place]. tel:[phone] Referring Provider: Shonda Harley MD, [facility] [place] [address], [place], [address]. tel:[phone] [facility], [address] [place] [address] Dr Malik 1000Dariela nesbitt [place], [id number], [place] tel:[phone] [place] Varicose veins of bilateral lower extremities with pain 4 Chandan PEREZ RVT, RPVI Robert. [address] [place] [address], [place], [id number], [place]. tel:[phone] Referring Provider: Shonda Harley MD, [address] [facility] [address] [place] [address], suite [facility] [place], [place], [address]. tel:[phone] [facility], [address] [place] [address] Dr Malik [address]Suite 1000Dariela [place], [id number], [place] tel:[phone] [place] Varicose veins of right lower extremity with other complications Apr- [address] [facility], [address], [place], [id number], [place]. tel:[phone] Referring Provider: Shonda Harley MD, [facility] [address] [place] [address], [place], [address]. tel:[phone] [facility], [address] [place] [address] Dr Malik 1000[facility] 1000Dariela [place], [id number], [place] tel:[phone] [place] Encounter for follow-up examination after completed treatment for conditions other than malignant neVaricose veins of right lower extremity with pain Apr- 4 Chandan PEREZ RVT, MESERET Isaacs. [address] [place] [address], [place] salazar [place], [id number], [place]. tel:[phone] Referring Provider: Shonda Harley MD, [facility] [address] [place] [address] suite [facility] [place], [place], [address]. tel:[phone] [facility], [address] [place] [address] Dr Malik [address] 1000Dariela [place], [id number], [place] tel:[phone] [place] Varicose veins of right lower extremity with other complications Apr-0 4 Chandan PEREZ RVT, MESERET Isaacs. [address] [place] [address], [facility] [address], Julia [place]azar [place], [id number], [place]. tel:[phone] Referring Provider: Shonda Harley MD, [address] [facility] [address] [place] [address], [address], [place], [address]. tel:[phone] Office/Outpt E&M Established 10 Mins [facility], [address] [place] [address] [facility] 1000Suite 1000Dariela [place], [id number], [place] tel:[phone] [place] Chronic venous hypertension (idiopathic) without complications of left lower extremity 3 Chandan PEREZ RVT, MESERET Isaacs. [address] [place] [address], [address], [place], [id number], [place]. tel:[phone] Referring Provider: Shonda Harley MD, [facility] [address] [place] [address], suite [facility] [place], [place], [address]. tel:[phone] [facility], [address] [place] [address] Dr Malik [address] 1000Dariela [place], [id number], [place] tel:[phone] [place] Encounter for follow-up examination after completed treatment for conditions other than malignant ne 3 Chandan PEREZ RVT, MESERET Isaacs. [address] [place] [address], [address], [place], [id number], [place]. tel:[phone] Referring Provider: Shonda Harley MD, [facility] Main [facility] [address] [place] [address], suite [facility] [place], [place], [address]. tel:[phone] [facility], [address] [place] [address] [facility] [address] 1000Dariela [place], [id number], [place] tel:[phone] [place] Encounter for follow-up examination after completed treatment for conditions other than malignant neVaricose veins of left lower extremity with pain 3 Gabriel Barnett. [address] [place] [address], [address], [place], [address], [place]. tel:[phone] Referring Provider: Shonda Harley MD, [address] [facility] [address] [place] [address], suite [facility] [place], [place], [address]. tel:[phone] [facility], [address] [place] [address] Dr Malik 1000[facility] [address]Dar[place]a [place], [id number], [place] tel:[phone] [place] Varicose veins of left lower extremity with other complications 3 Nirmal Banks. [address] [place] [address], [address], Min[place]oon salazar [place], [id number], [place]. tel:[phone] Referring Provider: Shonda Harley MD, [address] [facility] [address] [place] [address], [place] [address], [place], [address]. tel:[phone] [facility], [address] [place] [address] Dr Malik 1000[facility] Dariela Acevedo MD, [id number], [place] tel:[phone] [place] Chronic venous hypertension (idiopathic) with inflammation of left lower extremity 3 Chandan PEREZ, RVT, MESERET Isaacs. [address] [place] [address], [place] [address], Julia salazar [place], [id number], [place]. tel:[phone] Referring Provider: Shonda Harley MD, [facility] [address] [place] [address], [place] [address], [place], [address]. tel:[phone] Offic/outpt E&m Estab 5 Min Trial - Telemedicine [facility], [address] [place] [address] Dr Malik 1000[facility] Dariela Acevedo MD, [id number], [place] tel:[phone] [place] Chronic venous hypertension (idiopathic) with other complications of bilateral lower extremity 3 Gabriel PEREZ FACS RVT MESERET Barnett. [facility], [facility] [address], [place], [address], [place]. tel:[phone] Referring Provider: Shonda Harley MD, [address] [facility] [address] [place] [address], [place] [address], [place], [address]. tel:[phone] [facility], [address] [place] [address] Dr Malik [address] Dariela Acevedo [place], [id number], [place] tel:[phone] [place] Chronic venous htn w oth comp of bilateral low extrm 3 Gabriel PEREZ FACS T MESERET Barnett. [facility] [place] [address], [place], [address], [place]. tel:[phone] Referring Provider: Shonda Harley MD, [address] [facility] [address] [place] [address], [place], [address]. tel:[phone] Offic Cons New/estab Mod-hi 60 [facility], [address] [facility] [address], [place], [id number], [place] tel:[phone] CVR - [facility] Varicose veins of bi low extrem w oth complications Varicose veins of right lower extremity with inflammationV aricose veins of left lower extremity with inflammationC ramp and spasmRestless legs syndromePhleb itis and thombophlb of superfic vessels of r low extremPruritu s, unspecifiedDi sorder of pigmentation, unspecified 3 Gabriel PEREZ FACS T MESERET Barnett. [address] [place] [address], [place], [address], [place]. tel:[phone] Referring Provider: Shonda Harley MD, [facility] [place] [address], [place], [address]. tel:[phone] Family History Family Member Type Diagnosis Age At Onset No Information Payers Payer name Insurance type Covered democrat ID Lucien bautista(s) [facility] [id number] Social History Type Description Quantity Date Captured Comments Alcohol Use Details Unknown Caffeine Use Details Unknown Tobacco Use Status No Information Smoking Status No Information Sex Female Chief Complaint And Reason For Visit No Information Reason For Referral Reason For Referral No Information History Of Present Illness Encounter Date Complaint History Of Prese nt Illness No Information Functional Status Date Functional Assessmen t No Information Instructions Date Instruction Additional Infor mation Patient education booklet given Related to Varicose veins of right lower extremity with inflammation Compression stocking usage as conservative measure Related to Varicose veins of right lower extremity with inflammation Patient education booklet given Related to Chronic venous hypertension (idiopathic) without complications of left lower extremity Patient education booklet given Related to Chrn Vns Hyprtnsn w/Compl (Pain Edema Swelling); BILAT Continue compression stocking us e Related to Chrn Vns Hyprtnsn w/Compl (Pain Edema Swelling); BILAT Pre and post instruc tions reviewed and provided Related to Varicose veins of bi low extrem w oth complications Patient education booklet given Related to Varicose veins of bi low extrem w oth complications Assessments Type Assessment Date No Information Patient Care Teams Name Effective Dates (start - stop) Status Members No Information
--- NOTE | 2025-03-20 16:12 | A.OFFVIS_ITS ---
Intake Visit Reasons: follow up 6m Allergies latex Allergy (Intermediate, Verified 01/02/25 07:40) Rash Penicillins (PENICILLINS) Allergy (Intermediate, Verified 01/02/25 07:40) Hives codeine (CODEINE) Allergy (Unknown, Verified 01/02/25 07:40) Unknown Iodinated Contrast Media (IV Dye, Iodine Containing) Allergy (Unknown, Verified 01/02/25 07:40) Unknown meperidine (From Demerol) Allergy (Unknown, Verified 01/02/25 07:40) Unknown nitrofurantoin (From Macrobid) Allergy (Unknown, Verified 01/02/25 07:40) Unknown Sulfa (Sulfonamide Antibiotics) (SULFA (SULFONAMIDE ANTIBIOTICS)) Allergy (Unknown, Verified 01/02/25 07:40) Unknown HPI Comments Details: The patient is a 69 year old female presenting for a neurology follow-up visit. Approximately two months ago, the patient experienced an episode of transient strabismus upon waking up early in the morning. She presented to the emergency room, where a CT scan of her head and neck were performed and found to be normal. Two days after the onset of visual symptoms, she developed a fever of 101?F and cold symptoms. An supervisor ski production she saw subsequently suggested the episode could have been caused by a virus. The patient has a history of torticollis, which she manages with massages every couple of weeks, meditation, and as-needed sumatriptan. She reports that massage therapy reduces her use of sumatriptan. She was previously seen by a pain and patent law specialist who recommended a neck injection, which she declined. The patient also reports difficulty sleeping. Her therapist suggested clonidine for sleep, but she is nervous about taking it. She does not take any blood pressure medications and notes her blood pressure is usually low to normal. ON LICENSE OF [facility] Medical History Back pain Fibromyalgia GERD (gastroesophageal reflux disease) Cervical spondylosis Osteopenia Depression Anxiety Atrophy of left kidney Sexual arousal disorder Pelvic pain Hydronephrosis Frequent UTI delivery delivered Surgical History History of esophagogastroduodenoscopy (EGD) H/O colonoscopy Hx of varicose vein ligation Hx of section Hx of tonsillectomy Family History Mother HTN (hypertension) Heart attack Diabetes Father Esophagus cancer Social History Alcohol intake: never Patient Tobacco Use Status: Never used Tobacco Review of Systems Narrative - Constitutional: Reports a history of fever up to 101?F and cold symptoms approximately two months ago. - Eyes: Reports history of a transient episode of strabismus. - Neurological: Reports a history of torticollis and migraines. - Denies headache during the episode of strabismus. - Denies confusion during the episode of strabismus. - Psychiatric: Reports anxiety and difficulty sleeping. Physical Exam Neuro Other: Mental Status: Alert and oriented to person, place, and time. Normal attention. Normal spontaneous speech, fluency, and comprehension. Cranial Nerves: CN II: Visual sanchez full to confrontation, visual acuity intact. CN III, IV, : Pupils equal, round, reactive to light and accommodation. Extraocular movements are normal. CN V: Facial sensation is normal. CN VII: Facial movements symmetrical. CN VIII: Hearing intact to bedside conversation is normal. CN IX, X: Palate elevates symmetrically. CN XI: Shoulder shrug and head turn symmetrical. CN XII: Tongue midline without atrophy or fasciculations. Motor: Bulk and tone normal in all extremities. No significant muscle weakness in arms and legs. No drift. Deep tendon reflexes are 1+. Gait and Station: No obvious gait abnormality. No ataxia or instability. Extrapyramidal: Full facial expressions and blinking. No rigidity. Movements are appropriate with no tremor or abnormality. Speech: Normal; no dysarthria or tremor. Results Reviewed Results Reviewed: EXAMINATION: CT ANGIOGRAM HEAD AND NECK CLINICAL INFORMATION: Dizziness and nystagmus status post neck manipulation. 69-year-old female. COMPARISON: None available. Correlation made with MR brain angiography 03/20/2020. TECHNIQUE: Noncontrast axial imaging of the head was performed. This was followed by test bolus sequences and head and neck intravenous bolus administration 70 mL of Omnipaque 350. Helical imaging was performed in the axial plane from the aortic arch to the skull vertex. The data was processed at the registered vascular technologist (rvt)'s workstation for generation of MIP sequences. Angled MIPs and volume rendered reformatted images were also generated at an offline 3D workstation. Stenoses are assessed in accordance with NASCET criteria unless otherwise indicated. This CT examination was performed using dose optimization techniques as appropriate, variously including the following: *Automated exposure control *Adjustment of mA and/or kV according to patient size (this includes techniques or standardized protocols for targeted exams where dose is matched to indication/reason for exam; i.e. extremities or head) *Use of iterative reconstruction technique FINDINGS: NONCONTRAST HEAD CT: There is no evidence of intracranial hemorrhage or extra-axial fluid collection. There is no mass effect, or edema. No CT evidence of acute territorial infarct. Ventricles, sulci, and cisterns are normal in size and configuration for patient age. No hydrocephalus. No midline shift. No significant white matter abnormalities. Globes and orbital contents image normally. No extracranial soft tissue abnormalities. The paranasal sinuses, mastoid air cells, and tympanic cavities are normally aerated. No suspicious bony abnormalities. Moderate degenerative changes of the right TM joint. NECK CTA: -AORTIC ARCH: Normal in caliber. Minimal atheromatous calcification. Three-vessel branching pattern. -GREAT VESSEL ORIGINS: Widely patent. No stenosis. -RIGHT COMMON CAROTID ARTERY: Normal in course and caliber to the level of the bifurcation. -CERVICAL RIGHT INTERNAL CAROTID ARTERY: Normal opacification without focal stenosis or occlusion. -LEFT COMMON CAROTID ARTERY: Normal in course and caliber to the level of the bifurcation. -CERVICAL LEFT INTERNAL CAROTID ARTERY: Normal opacification without focal stenosis or occlusion. -CERVICAL RIGHT VERTEBRAL ARTERY: Non dominant. Normal in course and caliber into the skull base. No evidence of dissection. -CERVICAL LEFT VERTEBRAL ARTERY: Dominant. Normal in course and caliber into the skull base. No evidence of dissection. OTHER, SOFT TISSUES: -No lymphadenopathy or mass. No abnormal fluid collection or soft tissue swelling. -Normal thyroid. -Imaged superior mediastinal structures normal. -Imaged lung apices clear. CTA OF THE BRAIN: -INTRACRANIAL INTERNAL CAROTID ARTERIES: No focal stenosis or occlusion. -RIGHT ANTERIOR CEREBRAL ARTERY: Normal A1 segment. Normal arborization of the distal segments. -LEFT ANTERIOR CEREBRAL ARTERY: Normal A1 segment. Normal arborization of the distal segments. -ANTERIOR COMMUNICATING ARTERY: Normal. -RIGHT MIDDLE CEREBRAL ARTERY: Normal M1 segment of the MCA without focal stenosis or occlusion. Normal bifurcation. Normal arborization of the distal segments. -LEFT MIDDLE CEREBRAL ARTERY: Normal M1 segment of the MCA without focal stenosis or occlusion. Normal bifurcation. Normal arborization of the distal segments. -RIGHT VERTEBRAL ARTERY V4: Normal in course and caliber. Normal PICA branch. -LEFT VERTEBRAL ARTERY V4: Normal in course and caliber. Normal PICA branch. Both joint form the basilar artery. -BASILAR ARTERY: Normal without focal stenosis or occlusion. Normal appearance of the proximal superior cerebellar arteries. Normal basilar tip. -RIGHT POSTERIOR CEREBRAL ARTERY: The P1 segment is diminutive. origin of the MANAGING SUPERVISOR with robust opacification of the posterior communicating artery. Normal opacification of the distal MANAGING SUPERVISOR segments. -LEFT POSTERIOR CEREBRAL ARTERY: Normal P1 segment. Normal opacification of the distal MANAGING SUPERVISOR segments. -POSTERIOR COMMUNICATING ARTERIES: The right as above. The left is small but patent. Normal opacification of the superior sagittal, straight, transverse, and sigmoid sinuses. No venous thrombosis. No space-occupying hemorrhage or definite evolving infarct. CT/CT angio head neck IMPRESSION: NON-CONTRAST HEAD CT: 1. No intracranial hemorrhage. No CT evidence of acute territorial infarct. CTA NECK: 1. No evidence of stenosis, occlusion, dissection, or aneurysm of the major cervical arterial vasculature. CTA HEAD: 1. No evidence of stenosis, occlusion, dissection, or aneurysm of the major intracranial arterial vasculature. 2. Major cortical and dural venous sinuses are patent. Electronically signed by: Mino Talbot MD 01/02/2025 10:24 AM EDT Assessment & Plan Assessment & Plan (1) Chronic tension type headache: Code(s): G44.229 - Chronic tension-type headache, not intractable Category: Medical Qualifiers: Intractability: intractable Qualified Code(s): G44.221 - Chronic tension-type headache, intractable (2) Cervical spondylarthritis: Code(s): M47.812 - Spondylosis without myelopathy or radiculopathy, cervical region Category: Medical Qualifiers: Spinal osteoarthritis complication: without myelopathy or radiculopathy Qualified Code(s): M47.812 - Spondylosis without myelopathy or radiculopathy, cervical region (3) Fibromyalgia: Comment: Meds tried: cyclobenzperine, gabapentin, baclofen, amitryptiline, NCV/EMG LTUE 10/19/17 THIS IS A NORMAL STUDY. NCV/EMG UE August 2014 in office: CHRONIC LEFT LOWER CERVICAL RADICULOPATHY. [place] [facility] [place]: WNL (reported) [place] of [place] [facility] [place]: spondylosis at mid spine MRI left [place] [facility] [place]: left rotater cuff tendinitis. [place] C [place] [facility] [place]: mid cervical spondylosis and straigtening, no root compression MRI LS spine [place] [facility]: minimal DJD L 4/5 MRI LS spine [place] [facility]: slight worsening of DJD at L 4/5 with mild stenosis NCV/EMG at office in 2013: MILD CARPAL TUNNEL SYNDROME BILATERALLY. MRA brain [place] [facility] [place]: WNL. Code(s): M79.7 - Fibromyalgia Category: Medical Plan Impression: A: Chronic tension type headaches B: Cervical spondyloarthritis C: Fibromyalgia Rec: a: Sumatriptan 25mg one a day as needed b: Massage or Acupuncture I discussed the potential causes for the patient's recent episode of transient double vision, which occurred about two months ago. I explained that while a TIA is a consideration, it is less likely given her normal head and neck imaging and lack of risk factors. I indicated that a migraine variant or a viral process seem to be more likely explanations, particularly as she developed a fever and cold symptoms shortly after the event. We reviewed her management for torticollis, which includes massages and as-needed sumatriptan, and I agreed to provide a refill for her sumatriptan. Regarding her insomnia, her therapist had suggested clonidine, but I advised against it due to the potential for it to lower her blood pressure, which she reports is already on the low side. We will have a follow-up appointment in six months. Medications: New sumatriptan succinate 25 mg PO DAILY PRN 9 tabs 0RF Migraine Headache Coding Level of Care Code Est Pt Level 4 (31822) Diagnoses Chronic tension-type headache, intractable G44.221 Intractability: intractable Spondylosis of cervical region without myelopathy or radiculopathy M47.812 Spinal osteoarthritis complication: without myelopathy or radiculopathy Fibromyalgia M79.7
--- OUTSIDE RECORDS SUMMARY | 2025-03-20 23:12 | XMS_ITS | Clinical Summary ---
Author Organization [facility] Address [address] [place] [id number] Care Team Providers Care Roustabout Pusher Name Role Phone Indira Cowart MD Primary [...] Screening 03/12/2020 03/12/2018 COVID-19 Vaccine (1 - 2024-2 6 season) 2024 Influenza Vaccine (#1) 2024 7, [...] to complete [place] [id number] Care Teams Roustabout Pusher Relationship Specialty Start Date End Date Indira Cowart MD [id number] [id number] PCP - General 04/20/18
--- OUTSIDE RECORDS SUMMARY | 2025-03-20 23:12 | XMS_ITS | Data Portability ---
Author Organization [facility], Main Office Address [address] [facility] [address] [place] [id number] Care Team Providers Care Game Trapper Name Role Phone SUSY PHELPS Education Technician [facility] Card Processing Clerk WYATT GONZALEZ JR Medical Editor [phone] BLAWINDER EASON Urologist ROBBIE RANGEL Neurologist MING RUFFIN Psychiatrist [phone] SAMMY RUTLEDGE Customer Expert [facility] Endocrinologis t MARVA SAUNDERS Education Technician [facility] Orthopedic Surgeon [facility] Phys. Med. & Rehab [phone] SHONDA HARLEY Primary Care Provider Assessment No assessment recorded. Plan of Treatment Reminders Order Date Submit Date Provider Last Modified By Organization Details Last Modified Time Details Appointments FOLLOW UP 2025 03:30P Marco HARLEY MD Not available Not available Not available Lab lipid panel, serum 2024 025 ADAN [facility], [address] [place], [address], 01/29/2025 06:08:21 BMP, serum or plasma 2024 025 ADAN [facility], [address] [place], [address], 01/29/2025 06:08:20 CBC w/ auto diff 2024 025 ADAN [facility], [address], [place], [address], 01/29/2025 06:08:20 TSH, ultra- sensit alma, serum 2024 025 ADAN [facility], [address], [place], [address], 01/29/2025 06:08:21 urinal ysis, dipsti ck 2024 025 ADAN In-Office Order, Internal Use Only DO Not Attach Compendium DO Not Attach Compendium, Do Not Delete/merge, [id number] 07/19/2024 15:23:57 cultur e, urine 2024 025 ADAN [facility] (Centralized Electronic Ordering - All Locations), Patient Can Go To The Location Of Their Choice, [id number] 07/21/2024 14:06:04 Referral mental health counse roxy referr al 2024 025 Not available 03/05/2025 15:28:32 allerg ist referr al - to consid er allerg y shots 2024 025 [facility], [address], [address], [place], [address], 01/31/2025 11:56:41 mental health counse roxy referr al 2024 025 [email or web address] Not available 01/24/2025 15:58:23 Procedures None record ed. Surgeries None record ed. Imaging XR, toe(s) , 2 or more view - second digit on right foot 2024 025 [email or web address] Not available 09/06/2024 09:07:07 Medication Orders cariso prodol 250 mg tablet 2024 025 ENOLA [id number], [address] [place], [address], 02/04/2025 05:01:04 doxycy wilder hyclat e 100 mg tablet 2024 025 [id number], [address] [place], [address], 01/23/2025 15:21:28 cariso prodol 250 mg tablet 2024 025 [id number], [address] [place], [address], 02/04/2025 05:01:04 Patient TargetsNo targets recorded. Patient Instructions Encounter Date Encounter Id Patient Instructions Last Modified By Organization Details Last Modified Time 07/19/2024 [id number] painful urinatio n (dysuria): care instructions Not available 07/19/2024 15:09:55 01/13/2025 [id number] saline nasal was hes: care instructions pmadden Not available 01/13/2025 16:38:04 eustachian tube problems: care instructions pmadden Not available 01/13/2025 16:38:04 Acute Sinusitis: Care Instructions pmadden Not available 01/13/2025 16:38:04 Follow up if no improvement or if symptoms worsen. pmadden Not available 01/13/2025 16:26:03 01/23/2025 [id number] irritable bowel syndrome: care instructions Not available 01/23/2025 16:28:05 insomnia: care instructions Not available 01/23/2025 16:28:04 learning about anxiety disorders Not available 01/23/2025 16:28:04 gastroesophageal reflux disease (GERD): care instructions Not available 01/23/2025 16:28:04 preventing falls : care instructions Not available 01/23/2025 16:28:04 well visit, over 65: care instructions Not available 01/23/2025 16:28:05 seasonal allergi es: care instructions Not available 01/23/2025 16:28:04 learning about m ood disorders Not available 01/23/2025 16:31:01 Mental Health Information Not available 01/23/2025 16:31:01 learning about stress Not available 01/23/2025 16:31:01 03/04/2025 [id number] learning about anxiety disorders Not available 03/04/2025 14:17:22 learning about m ood disorders Not available 03/04/2025 14:17:22 Mental Health Information Not available 03/04/2025 14:17:22 learning about stress Not available 03/04/2025 14:17:22 Reason for Referral Column Precaster Referral for Seaso nal allergy to consider allergy shots [facility]: 01/23/2025 Mental Health Counselor Refe rral for Mood disorder Ref[facility] Encounter Date: 01/23/2025 Mental Health Counselor Refe rral for Mood disorder Referring [facility] Encounter Date: 03/04/2025 Results Created Date Observation Date Name Description Value Unit Range Abnormal Flag Note LastModifiedBy Organization Detail LastModifiedTime 07/20/19 25 07/21/2024 URINE CULTU RE, ROUTI NE urine culture, routine Final report Not Available [facility] ([facility]) [address] [place], [address], 07/21/2024 14:06:04 07/20/19 25 07/21/2024 URINE CULTU RE, ROUTI NE result 1 COMMEN T Mixed uroge nital talisha 10,00 0-25, 000 colon y formi ng units per mL Not Available [facility] ([facility]) [address] [place], [address], 07/21/2024 14:06:04 07/20/19 25 07/19/2024 urina lysis , dipst ick Leukocytes Negati ve Not Available In-Office Order Internal Use Only DO Not Attach Compendium DO Not Attach Compendium, Do Not Delete/merge, 07/19/2024 15:09:24 07/20/19 25 07/19/2024 urina lysis , dipst ick Nitritie negati ve Not Available In-Office Order Internal Use Only DO Not Attach Compendium DO Not Attach Compendium, Do Not Delete/merge, 07/19/2024 15:09:24 07/20/19 25 07/19/2024 urina lysis , dipst ick Urobilinogen .2 Not Available In-Of fice Order Internal Use Only DO Not Attach Compendium DO Not Attach Compendium, Do Not Delete/merge, 07/19/2024 15:09:24 07/20/19 25 07/19/2024 urina lysis , dipst ick Protein Negati ve Not Available In-Office Order Internal Use Only DO Not Attach Compendium DO Not Attach Compendium, Do Not Delete/merge, 07/19/2024 15:09:24 07/20/19 25 07/19/2024 urina lysis , dipst ick pH 6.0 Not Available In-Office Order Internal Use Only DO Not Attach Compendium DO Not Attach Compendium, Do Not Delete/merge, 07/19/2024 15:09:24 07/20/19 25 07/19/2024 urina lysis , dipst ick Blood Modera te Not Available In-Office Order Internal Use Only DO Not Attach Compendium DO Not Attach Compendium, Do Not Delete/merge, 07/19/2024 15:09:24 07/20/19 25 07/19/2024 urina lysis , dipst ick Specific [place] 1.010 Not Available In-Off ice Order Internal Use Only DO Not Attach Compendium DO Not Attach Compendium, Do Not Delete/merge, 07/19/2024 15:09:24 07/20/19 25 07/19/2024 urina lysis , dipst ick Ketone Negati ve Not Available In-Office Order Internal Use Only DO Not Attach Compendium DO Not Attach Compendium, Do Not Delete/merge, 07/19/2024 15:09:24 07/20/19 25 07/19/2024 urina lysis , dipst ick Bilirubin Negati ve Not Available In-Office Order Internal Use Only DO Not Attach Compendium DO Not Attach Compendium, Do Not Delete/merge, [id number] 07/19/2024 15:09:24 07/20/19 25 07/19/2024 urina lysis , dipst ick Glucose Negati ve Not Available In-Office Order Internal Use Only DO Not Attach Compendium DO Not Attach Compendium, Do Not Delete/merge, [id number] 07/19/2024 15:09:24 07/20/19 25 07/19/2024 urina lysis , dipst ick Appearance Clear Not Available In-Offi ce Order Internal Use Only DO Not Attach Compendium DO Not Attach Compendium, Do Not Delete/merge, [id number] 07/19/2024 15:09:24 07/20/19 25 07/19/2024 urina lysis , dipst ick Color Pale Yellow Not Available In-Office Order Internal Use Only DO Not Attach Compendium DO Not Attach Compendium, Do Not Delete/merge, [facility] 07/19/2024 15:09:24 01/29/20 25 01/28/2025 CBC WITH DIFFE RENTI AL/PL ATELE T WBC 4.9 x10e3 /uL 3.4-10 .8 normal Not Available [facility] ([facility]) [address] [place], [address], 01/29/2025 06:08:20 01/29/20 25 01/28/2025 CBC WITH DIFFE RENTI AL/PL ATELE T RBC 3.92 x10e6 /uL 3.77-5 .28 normal Not Available [facility] ([facility]) [address] [place], [address], 01/29/2025 06:08:20 01/29/20 25 01/28/2025 CBC WITH DIFFE RENTI AL/PL ATELE T hemoglobin 12.8 g/dL 11.1-1 5.9 normal Not Available [facility] ([facility]) [address] [facility], [place], [address], 01/29/2025 06:08:20 01/29/20 25 01/28/2025 CBC WITH DIFFE RENTI AL/PL ATELE T hematocrit 38.2 % 34.0-4 6.6 normal Not Available [facility] ([facility]) [address] [place], [address], 01/29/2025 06:08:20 01/29/20 25 01/28/2025 CBC WITH DIFFE RENTI AL/PL ATELE T MCV 97 fL 79-97 normal Not Available [facility] ([facility]) [address] [place], [address], 01/29/2025 06:08:20 01/29/20 25 01/28/2025 CBC WITH DIFFE RENTI AL/PL ATELE T MCH 32.7 pg 26.6-3 3.0 normal Not Available [facility] ([facility]) [address] [place], [address], 01/29/2025 06:08:20 01/29/20 25 01/28/2025 CBC WITH DIFFE RENTI AL/PL ATELE T MCHC 33.5 g/dL 31.5-3 5.7 normal Not Available [facility] ([facility]) [address] [place], [address], 01/29/2025 06:08:20 01/29/20 25 01/28/2025 CBC WITH DIFFE RENTI AL/PL ATELE T RDW 12.3 % 11.7-1 5.4 Not Available [facility] ([facility]) [address] [place], [address], 01/29/2025 06:08:20 01/29/20 25 01/28/2025 CBC WITH DIFFE RENTI AL/PL ATELE T platelets 189 x10e3 /uL 150-45 0 normal Not Available [facility] ([facility] [address] [place], [address], 01/29/2025 06:08:20 01/29/20 25 01/28/2025 CBC WITH DIFFE RENTI AL/PL ATELE T neutrophils 60 % not estab. normal Not Available [facility] ([facility]) [address] [facility], [place], [address], 01/29/2025 06:08:20 01/29/20 25 01/28/2025 CBC WITH DIFFE RENTI AL/PL ATELE T lymphs 27 % not estab. normal Not Available [facility] ([facility]) [address] [facility], [place], [address], 01/29/2025 06:08:20 01/29/20 25 01/28/2025 CBC WITH DIFFE RENTI AL/PL ATELE T monocytes 9 % not estab. normal Not Available [facility] ([facility]) [address] [facility], [place], [address], 01/29/2025 06:08:20 01/29/20 25 01/28/2025 CBC WITH DIFFE RENTI AL/PL ATELE T eos 3 % not estab. normal Not Available [facility] ([facility]) [address] [facility], [place], [address], 01/29/2025 06:08:20 01/29/20 25 01/28/2025 CBC WITH DIFFE RENTI AL/PL ATELE T basos 1 % not estab. normal Not Available [facility] ([facility]) [address] [facility], [place], [address], 01/29/2025 06:08:20 01/29/20 25 01/28/2025 CBC WITH DIFFE RENTI AL/PL ATELE T immature cells CORPORATE MANAGER Not Available [facility] ([facility]) [address] [facility], [place], [address], 01/29/2025 06:08:20 01/29/20 25 01/28/2025 CBC WITH DIFFE RENTI AL/PL ATELE T neutrophils (absolute) 2.9 x10e3 /uL 1.4-7. 0 normal Not Available [facility] ([facility]) [address] [place], [address], 01/29/2025 06:08:20 01/29/20 25 01/28/2025 CBC WITH DIFFE RENTI AL/PL ATELE T lymphs (absolute) 1.3 x10e3 /uL 0.7-3. 1 normal Not Available [facility] ([facility]) [address] [place], [address], 01/29/2025 06:08:20 01/29/20 25 01/28/2025 CBC WITH DIFFE RENTI AL/PL ATELE T monocytes(ab solute) 0.5 x10e3 /uL 0.1-0. 9 normal Not Available [facility] ([facility]) [address] [facility], [place], [address], 01/29/2025 06:08:20 01/29/20 25 01/28/2025 CBC WITH DIFFE RENTI AL/PL ATELE T eos (absolute) 0.1 x10e3 /uL 0.0-0. 4 normal Not Available [facility] ([facility]) [address] [place], [address], 01/29/2025 06:08:20 01/29/20 25 01/28/2025 CBC WITH DIFFE RENTI AL/PL ATELE T baso (absolute) 0.1 x10e3 /uL 0.0-0. 2 normal Not Available [facility] ([facility]) [address] [place], [address], 01/29/2025 06:08:20 01/29/20 25 01/28/2025 CBC WITH DIFFE RENTI AL/PL ATELE T immature granulocytes 0 % not estab. Not Available [facility] ([facility]) [address] [place], [address], 01/29/2025 06:08:20 01/29/20 25 01/28/2025 CBC WITH DIFFE RENTI AL/PL ATELE T immature grans (abs) 0.0 x10e3 /uL 0.0-0. 1 Not Available [facility] ([facility]) [address] [facility], [place], [address], 01/29/2025 06:08:20 01/29/20 25 01/28/2025 CBC WITH DIFFE RENTI AL/PL ATELE T NRBC CORPORATE MANAGER Not Available [facility] ([facility]) [address] [facility], [place], [address], 01/29/2025 06:08:20 01/29/20 25 01/28/2025 CBC WITH DIFFE RENTI AL/PL ATELE T hematology comments: CORPORATE MANAGER Not Available [facility] ([facility]) [address] [facility], [place], [address], 01/29/2025 06:08:20 01/29/20 25 01/29/2025 BASIC METAB OLIC PANEL (8) glucose 75 mg/dL 70-99 normal Not Available [facility] ([facility]) [address] [facility], [place], [address], 01/29/2025 06:08:20 01/29/20 25 01/29/2025 BASIC METAB OLIC PANEL (8) BUN 16 mg/dL 8-27 normal Not Available [facility] ([facility]) [address] [place], [address], 01/29/2025 06:08:20 01/29/20 25 01/29/2025 BASIC METAB OLIC PANEL (8) creatinine 0.92 mg/dL 0.57-1 .00 normal Not Available [facility] ([facility]) [address] [place], [address], 01/29/2025 06:08:20 01/29/20 25 01/29/2025 BASIC METAB OLIC PANEL (8) eGFR 67 mL/mi n/1.7 3 >59 normal Not Available [facility] ([facility]) [address] [place], [address], 01/29/2025 06:08:20 01/29/20 25 01/29/2025 BASIC METAB OLIC PANEL (8) BUN/creatini ne ratio 17 12-28 normal Not Available [facility] ([facility]) [address] [place], [address], 01/29/2025 06:08:20 01/29/20 25 01/29/2025 BASIC METAB OLIC PANEL (8) sodium 140 mmol/ L 134-14 4 normal Not Available [facility] ([facility]) [address] [facility], [place], [address], 01/29/2025 06:08:20 01/29/20 25 01/29/2025 BASIC METAB OLIC PANEL (8) potassium 4.5 mmol/ L 3.5-5. 2 normal Not Available [facility] ([facility]) [address] [place], [address], 01/29/2025 06:08:20 01/29/20 25 01/29/2025 BASIC METAB OLIC PANEL (8) chloride 104 mmol/ L 96-106 normal Not Available [facility] ([facility]) [address] [place], [address], 01/29/2025 06:08:20 01/29/20 25 01/29/2025 BASIC METAB OLIC PANEL (8) carbon dioxide, total 22 mmol/ L 20-29 normal Not Available [facility] ([facility]) [address] [place], [address], 01/29/2025 06:08:20 01/29/20 25 01/29/2025 BASIC METAB OLIC PANEL (8) calcium 9.8 mg/dL 8.7-10 .3 normal Not Available [facility] ([facility]) [address] [place], [address], 01/29/2025 06:08:20 01/29/20 25 01/29/2025 LIPID PANEL cholesterol, total 183 mg/dL 100-19 9 normal Not Available [facility] ([facility]) [address] [place], [address], 01/29/2025 06:08:20 01/29/20 25 01/29/2025 LIPID PANEL triglyceride s 117 mg/dL 0-149 normal Not Available [facility] ([facility]) [address] [place], [address], 01/29/2025 06:08:20 01/29/20 25 01/29/2025 LIPID PANEL HDL cholesterol 76 mg/dL >39 normal Not Available [facility] [address] [place], [address], 01/29/2025 06:08:20 01/29/20 25 01/29/2025 LIPID PANEL VLDL cholesterol marta 20 mg/dL 5-40 Not Available [facility] ([facility]) [address] [place], [address], 01/29/2025 06:08:20 01/29/20 25 01/29/2025 LIPID PANEL LDL chol calc ([facility]) 87 mg/dL 0-99 Not Available [facility] [address] [place], [address], 01/29/2025 06:08:20 01/29/20 25 01/29/2025 LIPID PANEL LDL calc comment: CORPORATE MANAGER Not Available [facility] ([facility]) [address] [place], [address], 01/29/2025 06:08:20 01/29/20 25 01/29/2025 TSH RFX ON ABNOR MAL TO FREE T4 TSH 3.890 uIU/m L 0.450- 4.500 normal Not Available [facility] ([facility]) [address], [place], [address], 01/29/2025 06:08:21 07/24/1907/14/2024 MRI, shoul torri, w/o contr ast No observ ation record ed. Not Available 07/23 19:18:45 08/30/19 25 08/29/2024 mg mammo digit al scree maureen W paige bilat See Note [facility] , a member of [employer] [facility] Name: ZAK Bal Date of : 1955 Reason for Exam: Exam Date: 2024 [id number] EST Report Status : Final Orderi ng Provid er: SELF REFERR AL SPPL PCP: BERNARDA ALONZO EXAM: SCREEN ING MAMMOG DAVID, BILATE RAL HISTOR Y: SCREEN ING. No additi onal histor y. COMPAR ROBERT: 4, 3, 2, 1, 0, 8, , 6 TECHNI QUE: Synthe sized CC and MLO projec tions of each breast . Tomosy nthesi s of each breast in the CC and MLO projec tions. ADDITI ONAL IMAGIN G: Cranio caudal view of the left breast exagge rated toward the axilla using Tomosy nthesi s. Comput er-aid ed detect ion was employ ed with the iCAD ProFou nd AI 3-D. TISSUE DENSIT Y: There are scatte red areas of fibrog landul ar densit y. (BI-RA DS catego ry B) FINDIN GS: RIGHT BREAST : No suspic ious mass. No suspic ious calcif icatio n. No distor tion. Low-de nsity asymme try in the deep outer right breast is unchan ged when compar ed to remote studie s. LEFT BREAST : No suspic ious mass. No suspic ious calcif icatio n. No distor tion. No additi onal suspic ious left breast findin gs IMPRES MICHAEL: No mammog raphic eviden ce of malign yoselyn. No suspic ious interv al change . A negati ve mammog vimal in the presen ce of a clinic ally suspic ious palpab le abnorm ality does not preclu de the possib ility of malign yoselyn or alter the indica tions for biopsy . ASSESS MENT: BI-RAD S 1: NEGATI VE RECOMM ENDATI ON(S): 1: Routin e screen ing mammog vimal BILATE RAL in 1 year. Mammog david locati on: [facility] at [address], [address] [phone] ------ -- FINAL REPORT ------ -- Dictat ed By: Eleuterio Dorsey Dictat ed Date: 2024 11:45 ET Assign ed Physic seun: Eleuterio Dorsey Review ed and Electr onical ly Signed By: Eleuterio Dorsey Signed Date: 2024 11:53 ET Workst ation ID: [id number] Transc ribed By: Self Edit Transc ribed Date: 2024 11:45 ET [facility] U/S Dept [address] [place], [address], 08/29/2024 12:00:50 01/03/2001/02/2025 XR, chest , 1 view No observ ation record ed. [facility] (Medical Records) [address] [place] [address], [address], 01/13/2025 16:24:04 01/03/20 25 01/02/2025 CT, angio gram, head + neck, w/ contr ast No observ ation record ed. [facility] (Medical Records) [address] [place] [address], [address], 01/13/2025 16:24:32 01/24/20 25 09/21/2024 MRI, cervi marta spine , w/o contr ast No observ ation record ed. Not Available 01/24 07:37:47 03/14/2002/21/2025 DEXA, axial skele ton Name:Emily cook ID: [id number] Age:69 years Sex:Fe male Ethnic ity:Wh ite Date of : [birth year] Reason : M85.89 ; Clinic al Questi on(s): Other: - Referr ing Provid er:Darnell alonzo MD Study: Dexa Bone Densit y (Axial ) Bone Densit y: Region BMD T-Scor e Z-Scor e Classi ficati on AP Spine 0.813 -2.1 -0.1 Osteop enia TOTAL HIP 0.774 -1.4 0.1 Osteop enia FEM NECK 0.636 -1.9 -0.2 Osteop enia 10-yea r Fractu re Risk: 1 FRAX(R ) Versio n 3.08. Fractu re probab ility calcul ated for an untrea deana patien t. Fractu re probab ility may be lower if the patien t has receiv ed treatm ent. Major Osteop orotic Fractu re 9.7% Hip Fractu re 1.9% Impres michael: The patien t has osteop enia as determ ined by WHO criter ia. WSN: [id number] Orderi ng Physic seun: Bernarda Christensen Dictat ed By: Bijal Hawthorne MD Dictat ed Date/T sheryl: 2:19 pm Review ed By: Bijal Hawthorne MD Signed By: Bijal Hawthorne MD Signed Date/T sheryl: 2:19 pm Transc ribed By: VENKAT Transc ribed Date/T sheryl: 2:18 pm Patien t Class: Outpat ient [facility] (Outpt Imaging) [address] [place], [address], 03/15/2025 17:49:20 Result Notes Documentation Provider Name and Address Organization Details Recorded Time Dexa, Axial Skeleton : Name:FADUMO DE LA ROSA Age:69 years Sex:Female Ethnicity:White Date of :1955 Reason: M85.89; Clinical Question(s): Other: - Referring Provider:Shonda Harley MD Study:Dexa Bone Density (Axial) Bone Density: Region BMD T-Score Z-Score Classification AP Spine 0.813 -2.1 -0.1 Osteopenia TOTAL HIP 0.774 -1.4 0.1 Osteopenia FEM NECK 0.636 -1.9 -0.2 Osteopenia 10-year Fracture Risk: 1 FRAX(R) Version 3.08. Fracture probability calculated for an untreated patient. Fracture probability may be lower if the patient has received treatment. Major Osteoporotic Fracture 9.7% Hip Fracture 1.9% Impression: The patient has osteopenia as determined by WHO criteria. WSN: [id number] Ordering Physician: Shonda Harley Dictated By: Deondre Hawthorne MD Dictated Date/Time: 03/14/25 2:19 pm Reviewed By: Deondre Hawthorne MD Signed By: Deondre Hawthorne MD Signed Date/Time: 03/14/25 2:19 pm Transcribed By: VENKAT Transcribed Date/Time: 03/14/25 2:18 pm Patient Class: Outpatient SHONDA HARLEY MD [address], [address] 03/15/2025 17:21:18 Problems Name Problem SNOMED Code Status Onset Date Resolution Date Notes Provider Name and Address Organization Details Recorded Time Migraine 86822686 Active 2016 JOSE Lee [facility] 14:11:14 Anxiety disorder 209061482 Active 2016 JOSE Lee [facility] 14:11:14 Gastroesophage al reflux disease 063720738 Active 2016 JOSE Lee [facility] 14:11:14 Insomnia 406759854 Active 2016 JOSE Lee [facility] 1 14:11:14 Scoliosis deformity of spine 855656797 Active 2016 Abigail Viera MA null, [facility] 1 14:11:14 Postmenopausal osteoporosis 915931392 Active 2018 Abigail Viera MA null, [facility] 1 14:11:14 Fibromyalgia 920814090 Active 2022 SHONDA HARLEY MD [address], [facility] [place], [address], [facility] 3 14:43:34 Irritable bowel syndrome 46135964 Active 2023 Ira Velez LPN null, [facility] 4 14:53:03 Hydronephrosis 81686636 Active 2023 Maria Elena Ramos null, [facility] 4 14:09:31 Osteoarthrosis of the carpometacarpa l joint of the thumb 20313583 Active 2023 Maria Elena Ramos null, [facility] 4 13:48:09 Statin declined 481828039 Active 2024 SHONDA HARLEY MD [address], [place], [address], [facility] 5 19:29:04 Problem Notes None recorded. Procedures Surgical History Date Name Laterality Status Provider Name and Address Organization Details Recorded Time 09/22/19 25 Most Recent Mammogram completed Abigail Viera MA [facility] 01/23/2025 15:16:54 07/04/19 24 Endoscopic us exam esoph completed Cathy Beverly [facility] 07/05/2023 09:06:15 08/03/19 22 Mammogram both breasts completed Renee Cosme [facility] 08/05/2021 13:52:25 08/05/19 21 Date of Last Pap Smear completed Abigail Viera MA [facility] 11/27/2020 14:46:47 03/10/20 18 root canal preparation completed Anya anderson MA [facility] 07/25/2018 09:29:53 11/30/19 18 root canal preparation completed Anya anderson MA [facility] 07/25/2018 09:29:45 09/10/19 17 Most Recent Bone Density completed Lucina Glez [facility] 02/11/2017 11:48:36 09/10/19 17 Dxa bone density luis carlos vrt fx completed Nita Garay [facility] 02/17/2017 13:37:51 07/03/19 16 Date of Last Colonoscopy completed Anya anderson MA [facility] 07/25/2018 08:47:50 07/03/19 16 Colonoscopy completed Anya anderson MA [facility] 07/25/2018 09:18:35 05/24/18 90 Caesarean Section completed Abigail Viera MA [facility] 11/27/2020 14:35:12 Tonsillectomy completed Abigail brink MA [facility] 02/10/2017 10:50:18 delivery completed Abigail ledbetter MA [facility] 02/10/2017 10:58:33 Endometrial Ablation completed Abigail Viera MA [facility] 02/10/2017 10:58:44 Imaging Results None recorded. Procedure Notes None recorded. Medical Equipment None Reported. Allergies Allergen ID Allergen Name Allergen Category Reaction Reaction Severity Criticality Documentation Date Start Date Code Code System Note Provider Name and Address Organization Details Recorded Time 42009 latex gloves medicatio n itching moderate Not available 02/10/2017 JOSE Lee [facility] 7 10:49:57 31043 codeine medicatio n vomiting Not available Not available 02/10/20172020 2670 RxNorm Nita walton [facility] 09/28/202 1 10:26:09 63724 Demerol medicatio n tachycard ia Not available Not available 02/10/2017 41032 1 RxNorm JOSE Lee [facility] 7 10:49:57 52283 Iodinated contrast media (substanc e) medicatio n lighthead edness Not available Not available 02/10/20172020 05892 2003 SNOMED JOSE Schmidt [facility] 2 12:49:34 79974 Product containin g penicilli n (product) medicatio n hives severe Not available 02/10/20172020 10008 8001 JOSE Boyce [facility] 2 12:49:34 00677 Substance with sulfonami de structure and antibacte rial mechanism of action (substanc e) medicatio n hives moderate Not available 07/25/20182020 96209 8003 SNJOSE Hernandez [facility] 2 12:49:34 10655 sertralin e medicatio n headache severe Not available 07/13/20202020 41897 RxNorm Nita walton [facility] 10:26:09 82057 sulfur medicatio n hives moderate Not available 01/05/20212020 98368 RxNorm Ira MadrigaleCHRIST [facility] 4 13:44:57 29362 meperidin e medicatio n palpitati ons mild Not available 01/05/20212020 6754 RxNorm Nita walton [facility] 10:26:09 22153 Adhesive agent (substanc e) environme nt,medica tion itching moderate Not available 02/04/20222020 67416 0007 SNJOSE Hernandez [facility] 2 12:49:34 30764 Product containin g gadoliniu m and/or gadoliniu m compound (product) medicatio n Not available Not available Not available 07/25/20232023 93338 3008 SNOMED Other react ions and sever ities : 'Unkn own'. Ira Velez LPN null, [facility] 4 14:51:47 53023 latex environme nt,medica tion Not available Not available Not available 02/28/20252022 09702 91 RxNorm Not Available adan - External Data Service - prod 5 08:38:33 52226 meperidin e hydrochlo ride medicatio n Not available Not available Not available 02/28/20252022 37182 5 RxNorm Not Available adan - External Data Service - prod 5 08:38:33 16726 Penicilli n Not available Not available Not available Not available 02/28/20252022 44666 RxNorm Not Available adan - External Data Service - prod 5 08:38:33 48922 dye environme nt Not available Not available Not available 02/28/2025 Not Available [facility] - External Data Service - prod 5 08:39:25 70750 sulfameth oxazole / trimethop rim medicatio n Not available Not available Not available 02/28/2025 67292 RxNorm unrec ogniz ed react ion (text : hives , code: [id number]) (from [facility]) Not Available [facility] - External Data Service - prod 5 08:39:56 Medications Name Sig Start Date Stop Date Status Note LastModified by Organization Details LastModified Time methocarba mol 500 mg tablet TAKE 1 TABLET BY MOUTH TWICE A DAY 01/23 completed Not Available Not Available Not Available clotrimazo le 10 mg john DISSOLVE 1 JOHN IN MOUTH 5 TIMES A DAY FOR 2 WEEKS 12/16 completed Not Available Not Available Not Available terconazol e 0.4 % vaginal cream INSERT 1 APPLICAT ORFUL VAGINALL Y AT BEDTIME FOR 7 DAYS 12/16 completed Not Available Not Available Not Available nystatin 100,000 unit/mL oral suspension 586204 units 4 times a day by oral route. 01/20 completed Not Available Not Available Not Available Estring 2 mg (7.5 mcg/24 hour) vaginal ring 08/11 completed Not Available Not Available Not Available paroxetine 10 mg tablet Take by oral route for 30 days. 07/25 completed Not Available Not Available Not Available clindamyci n HCl 300 mg capsule 08/11 completed Not Available Not Available Not Available trazodone 50 mg tablet Take 1 tablet as needed by oral route as needed for 30 days. 07/25 completed Not Available Not Available Not Available oxybutynin chloride ER 10 mg tablet,ext ended release 24 hr Take 1 tablet every day by oral route for 30 days. 12/16 completed ON HOLD Not Available Not Available Not Available azithromyc in 250 mg tablet TAKE 2 TABLETS (500 MG) BY ORAL ROUTE ONCE DAILY FOR 1 DAY THEN 1 TABLET (250 MG) BY ORAL ROUTE ONCE DAILY FOR 4 DAYS 08/04 completed Not Available Not Available Not Available tizanidine 4 mg tablet TAKE 1/2 TABLET BY MOUTH DAILY BEFORE BEDTIME 01/22 completed Not Available Not Available Not Available clarithrom ycin 500 mg tablet 1 po bid 11/13 completed Not Available Not Available Not Available phenazopyr idine 200 mg tablet Take 1 tablet every day by oral route. 02/04 completed Not Available Not Available Not Available venlafaxin e 25 mg tablet 07/25 completed Not Available Not Available Not Available sumatripta n 25 mg tablet TAKE 1 TABLET BY MOUTH EVERY DAY NEEDED FOR HEADACHE active Not Available Not Available No t Available prednisone 20 mg tablet TAKE 2 TABLETS BY MOUTH EVERY DAY FOR 5 DAYS 09/13 completed Not Available Not Available Not Available fluorourac il 5 % topical cream PLEASE SEE ATTACHED FOR DETAILED DIRECTIO NS active Not Available Not Available No t Available terconazol e 0.8 % vaginal cream INSERT 1 APPLICAT ORFUL VAGINALL Y AT BEDTIME FOR 3 DAYS 07/28 completed Not Available Not Available Not Available gabapentin 250 mg/5 mL oral solution TAKE 2ML BY MOUTH EVERY DAY 09/13 completed Not Available Not Available Not Available ciprofloxa judith 250 mg tablet TAKE 1 TABLET BY MOUTH DAILY 07/24 completed Not Available Not Available Not Available ciprofloxa judith 500 mg tablet 500 mg twice a day by oral route. 01/10 completed Not Available Not Available Not Available alprazolam 0.5 mg tablet TAKE 1 TABLET BY MOUTH DAILY NEEDED FOR ANXIETY FOR 30 DAYS active Not Available Not Available No t Available alprazolam 0.25 mg tablet 1 po prn 11/27 completed Not Available Not Available Not Available hyoscyamin e ER 0.375 mg tablet,ext ended release,12 hr TAKE 1 TABLET BY MOUTH EVERY 12 HOURS 06/15 completed Not Available Not Available Not Available linezolid 600 mg tablet TAKE 1 TABLET BY MOUTH TWICE A DAY FOR 7 DAYS 12/16 completed Not Available Not Available Not Available amitriptyl ine 10 mg tablet TAKE 1/2 TABLET BY MOUTH EVERYDAY AT BEDTIME 07/19 completed Not Available Not Available Not Available meclizine 25 mg tablet 08/04 completed Not Available Not Available Not Available hydrocodon e 7.5 mg-acetami nophen 325 mg tablet 07/25 completed Not Available Not Available Not Available pantoprazo le 40 mg tablet,del ayed release 01/20 completed Not Available Not Available Not Available nitrofuran toin macrocryst al 100 mg capsule TAKE 1 CAPSULE BY MOUTH ONCE POST COITAL FOR 30 DAYS active PRN UTI Post Coital Not Available Not Available Not Available triamcinol one acetonide 0.1 % topical ointment APPLY TO AFFECTED AREA TOPICALL Y TWICE A DAY FOR 14 DAYS 11/27 completed Not Available Not Available Not Available hyoscyamin e 0.125 mg sublingual tablet DISSOLVE 1 TABLET UNDER TONGUE ONCE A DAY NEEDED 2023 active Not Available Not Available Not Avai lable nortriptyl ine 10 mg/5 mL oral solution TAKE 2 MLS ORALLY 1 TIMES A DAY 07/13 completed Not Available Not Available Not Available oxybutynin chloride ER 5 mg tablet,ext ended release 24 hr TAKE 1 TABLET BY MOUTH DAILY 12/16 completed Not Available Not Available Not Available sertraline 25 mg tablet TAKE 1 TABLET BY MOUTH EVERY DAY 07/13 completed Not Available Not Available Not Available omeprazole 20 mg capsule,de layed release TAKE 1 CAPSULE BY MOUTH DAILY FOR 30 DAYS active prn Not Available Not Available No t Available zolpidem 5 mg tablet Take 1 tablet every day by oral route for 30 days. 07/13 completed Not Available Not Available Not Available gabapentin 100 mg capsule 11/13 completed Not Available Not Available Not Available Feverall 325 mg rectal suppositor y Insert 1 supposit ory every day by rectal route. 02/09 completed Not Available Not Available Not Available clobetasol 0.05 % topical ointment APPLY THIN LAYER TO AFFECTED AREA 2X A DAY FOR NO MORE THAN 14DAYS, THEN 1-2 X/WEEK FOR MAINTAIN ANCE active Not Available Not Available No t Available levofloxac in 500 mg tablet TAKE 1 TABLET ORALLY EVERY 24 HOURS FOR UTI FOR 10 DAYS TO BE USED IF UTI SYMPTOMS 05/03 completed Not Available Not Available Not Available estradiol 0.01% (0.1 mg/gram) vaginal cream USE PEA SIZED AMOUTN AND APPLY 3 TIMES A WEEK FOR 90 DAYS,DIS POSE OF APPLICAT OR active Not Available Not Available No t Available methylpred nisolone 4 mg tablets in a dose pack 08/04 completed Not Available Not Available Not Available fluticason e propionate 50 mcg/actuat ion nasal spray,susp ension [place] 2 sprays every day by intranas al route for 90 days. 2023 active as needed Not Available Not Available Not Available doxycyclin e hyclate 100 mg tablet Take 1 tablet twice a day by oral route for 7 days. 01/23 completed Not Available Not Available Not Available neomycin 3.5 mg/g-polym yxin B 10,000 unit/g-dex ameth 0.1 % eye oint APPLY 1/4 INCH STRIP TO RIGHT UPPER EYELID THREE TO FOUR TIMES A DAY, AFTER HOT PACK AND MASSAGE. 01/13 completed Not Available Not Available Not Available erythromyc in 250 mg capsule,de layed release 07/25 completed Not Available Not Available Not Available escitalopr am 5 mg/5 mL oral solution TAKE 1 ML BY MOUTH ONCE A DAY 09/13 completed Not Available Not Available Not Available cyclobenza leidy 5 mg tablet Take 1 tablet as needed by oral route at bedtime for 30 days. 09/13 completed Not Available Not Available Not Available escitalopr am 5 mg tablet 01/16 completed Not Available Not Available Not Available nitrofuran toin monohydrat e/macrocry stals 100 mg capsule TAKE 1 CAPSULE EVERY 12 HOURS BY ORAL ROUTE DIRECTED FOR 7 DAYS. 01/20 completed Not Available Not Available Not Available duloxetine 20 mg capsule,de layed release 08/04 completed Not Available Not Available Not Available solifenaci n 5 mg tablet TAKE 1 TABLET BY MOUTH EVERY DAY active Not Available Not Available No t Available solifenaci n 10 mg tablet Take 1 tablet every day by oral route for 30 days. 02/04 completed Not Available Not Available Not Available biotin TAKES 1 4-5 TIMES WEEKLY active Not Available Not Available No t Available Vitamin D3 takes 1 gummie 3 times weekly. Unsure of strength 01/13 completed Not Available Not Available Not Available multivitam in TAKES 2 GUMMIES DAILY active Not Available Not Available No t Available Calcitrate -Vitamin D 1 Gummie daily active Not Available Not Available No t Available multivitam in with iron takes only 1/2 tablet 1-2 times weekly active Not Available Not Available No t Available carisoprod ol 250 mg tablet Take 1 tablet every day by oral route for 5 days. 02/04 completed Not Available Not Available Not Available Caltrate plus D 600 mg (carbonate )-20 mcg (800 unit) chewable tablet Take 1 tablet every day by oral route. 11/27 completed Not Available Not Available Not Available magnesium 200 mg (as magnesium oxide) tablet Take 1 tablet every day by oral route. 11/27 completed Not Available Not Available Not Available baclofen 5 mg tablet TAKE 1 TABLET BY MOUTH EVERY DAY 07/24 completed Not Available Not Available Not Available Flucelvax Quad 60 mcg (15 mcg x 4)/0.5 mL intramuscu lar susp 01/16 completed Not Available Not Available Not Available up4 Probiotics Adult 50 Plus 1 daily active Not Available Not Available Not Available Flublok Quad (PF) 180 mcg (45 mcg x 4)/0.5 mL IM syringe PHARMACY ADMINIST ERED 02/02 completed Not Available Not Available Not Available Vitals Date Recorded Systolic And Diastolic Provider Name and Address Organization Details Last Updated DateTime 07/19/2024 121/77 mm[Hg] SHONDA HARLEY MD [address] [address], [place], [address], [facility] 07/19/2024 15:08:18 Date Recorded Body height Body mass index (BMI) Body weight Heart rate Oxygen saturation Body temperature Systolic And Diastolic Provider Name and Address Organization Details Last Updated DateTime 5 168.91 cm 20.3 kg/m2 16869.3 3 g 65 /min 99 % 98.3 [degF] 131/77 mm[Hg] Martina Flip [facility] 14:56:19 Date Recorded Body height Body mass index (BMI) Body weight Provider Name and Address Organization Details Last Updated DateTime 08/23/2024 168.91 cm 20.9 kg/m2 [address] [facility] [place] 08/23/2024 13:56:02 Date Recorded Body height Body mass index (BMI) Body weight Heart rate Oxygen saturation Body temperature Systolic And Diastolic Systolic And Diastolic Provider Name and Address Organization Details Last Updated DateTime 5 168.91 cm 20.8 kg/m2 83893.8 8 g 70 /min 99 % 98.1 [degF] 151/90 mm[Hg] 138/88 mm[Hg] Keial Her [facility] 5 15:54:42 Date Recorded Body height Body mass index (BMI) Body weight Oxygen saturation Heart rate Body temperature Systolic And Diastolic Provider Name and Address Organization Details Last Updated DateTime 168.91 cm 20.8 kg/m2 96456.6 g 99 % 76 /min 98.1 [degF] 128/76 mm[Hg] Abigail Viera MA [facility] 15:12:45 Date Recorded Body height Body mass index (BMI) Body weight Oxygen saturation Heart rate Body temperature Systolic And Diastolic Provider Name and Address Organization Details Last Updated DateTime 5 168.91 cm 20.6 kg/m2 93631.5 2 g 100 % 77 /min 97.9 [degF] 135/75 mm[Hg] Abigail Viera MA [facility] 5 10:51:17 Social History Question Answer Notes LastModified by Organizat ion Details LastModified Time Tobacco Smoking Status Never Smoker Abigail Viera MA null, [facility] 02/10/2017 10:50:12 Do You Have An Advance Directive? No HCP Declined Information not available 02/04/2022 Is Blood Transfusion Acceptable In An Emergency? Yes [email or web address] Information not available 02/10/2017 What Is Your Level Of Caffeine Consumption? Occasional [email or web address] Information not available 01/07/2022 How Much Tobacco Do You Chew? None [email or web address] Information not available 02/10/2017 In The 14 Days Before Symptom Onset, Have You Had Close Contact With A Laboratory-confi rmed COVID-19 While That Case Was Ill? No Information not available 02/04/2022 In The 14 Days Before Symptom Onset, Have You Had Close Contact With A Person Who Is Under Investigation For COVID-19 While That Person Was Ill? No Information not available 02/04/2022 Have You Been To An Area Known To Be High Risk For COVID-19? No Information not available 02/04/2022 What Type Of Diet Are You Following? REGULAR [email or web address] Information not available 02/10/2017 Which Illicit Or Recreational Drugs Have You Used? None Information not available 07/25/2018 Live Alone Or With Others? With Others ([place]) Information not available 02/04/2022 Do You Take Precautions To Prevent Distracted Driving? Yes [email or web address] Information not available 02/10/2017 How Often Do You Need To Have Someone Help You When You Read Instructions, Pamphlets, Or Other Written Material From Your Doctor Or Pharmacy? Never [email or web address] Information not available 02/10/2017 Have You Served In The ? No Information not available 07/25/2018 Have You Or Anyone In Your Household Had Any Of The Following Symptoms In The Last 14 Days: Sore Throat, Cough, Chills, Body Aches For Unknown Reasons, Shortness Of Breath For Unknown Reasons, Loss Of Smell, Loss Of Taste, Fever At Or Greater Than 100 Degrees Fahrenheit? No Information not available 11/14/2019 Are You Or Anyone In Your Household A Health Care Provider Or Emergency Responder? Yes Public Health Nurse [email or web address] Information not available 01/10/2020 To The Best Of Your Knowledge Have You Been In Close Proximity To Any Individual Who Tested Positive For COVID-19? No [email or web address] Information not available 11/14/2019 *AWV ONLY* Are You Presently Prescribed Opioid Medication By PCP Or Specialist? If YES -Provider Assess The Benefit For Other, Non-opioid Pain Therapies Instead, Even If The Patient Does Not Have OUD But Is Possibly At Risk. No [email or web address] Information not available 01/19/2023 Have You Recently Traveled To A COVID-19 High Risk Area Or Gathering In The Last 10 Days? No [email or web address] Information not available 11/27/2020 What Was The Date Of Your Most Recent Tobacco Screening? 01/23/2025 [email or web address] Information not available 01/23/2025 How Many Children Do You Have? 1 Ilan Information not available 07/25/2018 Do You Use Protection During Sex? Always [email or web address] Information not available 02/10/2017 Do You Use Your Seat Belt Or Car Seat Routinely? Yes [email or web address] Information not available 11/27/2020 Seat Belts Used Routinely Yes Information not available 02/04/2022 Are You Sexually Active? No [email or web address] Information not available 11/27/2020 Smoke Alarm In Home Yes Information not available 02/04/2022 Do You Have Smoke And Carbon Monoxide Detectors In Your Home? Yes [email or web address] Information not available 11/27/2020 At What Age Did You Start Smoking Tobacco? 0 Information not available 07/25/2018 Are You Passively Exposed To Smoke? No [email or web address] Information not available 02/10/2017 How Much Tobacco Do You Smoke? No Information not available 07/25/2018 Do You Use Sunscreen Routinely? Yes [email or web address] Information not available 02/10/2017 How Many Years Have You Smoked Tobacco? 0 Information not available 07/25/2018 Sex: Unknown Functional Status Question Answer Note LastModified by Organizat ion Details LastModified Time What is your level of alcohol consumption? Occasional rare [email or web address] Information not available 01/23/2024 Do you or have you ever used smokeless tobacco? Never used smokeless tobacco [email or web address] Information not available 11/14/2019 Are you currently employed? Yes [email or web address] Information not available 02/10/2017 Are you able to walk independently without assistance or assistive devices? [email or web address] Information not available 02/04/2022 Are you able to care for yourself independently? 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 Never used electronic cigarettes Information not available 02/04/2022 What is your exercise level? Moderate stationery bike and walking Information not available 07/25/2018 Mental Status None recorded. Family History Relationship Description Onset Age of this Age Resolved Age Notes LastModified by Organization Details LastModified Time Father Heart disease [email or web address] Not available 02/10 10:56:56 Father History of malignant neoplasm of esophagus Not available 2021 08:49:48 Father Migraine [email or web address] Not availab le 11/27/2020 14:34:47 Mother Heart disease [email or web address] Not available 01/07 14:58:29 Mother Diabetes mellitus [email or web address] Not available 02/10 10:57:47 Mother Migraine Not availab le 11/27/2020 14:34:47 Notes:No FH of breast or col on cancer Medical History Condition Response Other N Gout N Kidney Stones N Blood Diseases N Hyperthyroidism N Breast Cancer N Depression Y COPD N Lung Disease N Hypothyroidism N Defects or Inherited Disease N Anesthesia Complications N Headaches/Migraines Y Varicose Veins Y Anxiety Disorder Y Obesity N Vision or Eye Problems N Arthritis N Head Injury/Concussion N Polyps N Infertility N Congenital Anomalies N Acid Reflux (GERD) Y Cancer N Stroke N ADHD N Endometriosis Y High Cholesterol N Liver Disease N Fibromyalgia Y Kidney Disease Y Heart Problems N Ear or Hearing Problems N Hospitalizations N Thyroid Problems N GI Problems Y Acne N Eating Disorder N Skin Problems Y Anemia N Constipation Y Bladder Problems N Mental Illness N Ovarian Cancer N Diabetes N Blood Transfusions N Seizures/Epilepsy N Tuberculosis N AIDS/HIV N Congestive Heart Failure (CHF) N Eczema N Diverticulitis N Abuse/Domestic Violence N Asthma N Allergies Y Reflux/GERD Y Hepatitis N Pulmonary Embolism N Hypertension N Chicken Pox Y Autism Spectrum Disorder (ASD) N Osteoporosis Y Gynecological History Statement/Question Response Date of Last Pap Smear 08/04/2020 Date of Last Colonoscopy 07/03/2015 Most Recent Mammogram 09/21/2024 Most Recent Bone Density 09/09/2016 Obstetrics History GPAL:G 0 P 0 0 0 0 Immunizations Vaccine Type Date Status Note Provider Name and Address Organization Details Recorded Time Tdap 009 completed Not Available [facility] 04/20/2023 18:54:16 Tdap 018 completed Not Available [facility] 04/20/2023 18:54:16 Influenza, MDCK, quadrivalent, preservative 019 completed Not Available [facility] 04/20/2023 18:54:16 COVID-19, mRNA, LNP-S, PF, 100 mcg/0.5mL dose or 50 mcg/0.25mL dose 021 completed Not Available [facility] 04/20/2023 18:54:16 COVID-19, mRNA, LNP-S, PF, 100 mcg/0.5mL dose or 50 mcg/0.25mL dose 021 completed Not Available [facility] 04/20/2023 18:54:16 Influenza, split virus, trivalent, PF 017 completed Not Available [facility] 04/20/2023 18:54:17 Influenza, split virus, trivalent, PF 016 completed Not Available [facility] 04/20/2023 18:54:17 Influenza, recombinant, quadrivalent, PF 020 completed Not Available [facility] 04/20/2023 18:54:16 COVID-19, mRNA, LNP-S, PF, 100 mcg/0.5mL dose or 50 mcg/0.25mL dose 021 completed Not Available [facility] 04/20/2023 18:54:16 Influenza, split virus, quadrivalent, PF 018 completed Not Available [facility] 04/20/2023 18:54:17 COVID-19, mRNA, LNP-S, PF, 100 mcg/0.5mL dose or 50 mcg/0.25mL dose 022 completed Not Available [facility] 04/20/2023 18:54:16 Influenza, high-dose, quadrivalent, PF 021 completed Not Available [facility] 04/20/2023 18:54:16 Influenza, MDCK, quadrivalent, PF 022 completed Not Available [facility] 04/20/2023 18:54:16 pneumococcal polysaccharide PPV23 021 completed Not Available [facility] 04/20/2023 18:54:16 Pneumococcal conjugate PCV20, polysaccharide [id number] conjugate, adjuvant, PF 022 completed Not Available [facility] 04/20/2023 18:54:16 COVID-19, mRNA, LNP-S, bivalent, PF, 50 mcg/0.5 mL or 25mcg/0.25 mL dose 023 completed Not Available [facility] 04/20/2023 18:54:16 Influenza, MDCK, quadrivalent, PF 023 completed Ira Velez LPN null, [facility] 07/25/2023 14:55:19 Influenza, split virus, trivalent, PF 024 completed JOSE Lee, [facility] 01/23/2024 08:53:18 zoster recombinant 025 completed Not Available [facility] 03/04/2025 10:47:05 Influenza, recombinant, trivalent, PF 025 completed Not Available [facility] 03/04/2025 10:47:05 zoster recombinant 025 completed Not Available [facility] 03/04/2025 10:47:05 zoster recombinant 023 cancelled patient objection SHONDA HARLEY MD [address], [address], [facility] 01/19/2023 15:57:18 Past Encounters Encounter ID Performer Location Encounter Start Date Encounter Closed Date Diagnosis/Indication Diagnosis SNOMED-CT Code Diagnosis ICD10 Code Diagnosis IMO Codes Diagnosis Note [id number] Indira burger MD Main Office [address] [facility] [address] [place], [place] [address] 02/10/2017 10:36:39 02/10/2017 12:44:37 Adult health examination 389594309 Z00.00 New pt, states colonoscop y and mammogram utd Osteoporosis 50965263 M8 1.0 pt was dx with osteoporos is, was offered tx with fosamax but reluctant due to possible side effects, pt has seen endocrinol ogy already, I will ask pt to set p appt and discuss bone health and treatment for osteoporos is Hydronephrosis 66045816 N13.30 see hx, discovered incidental ly on evaluation for back pain, no htn, urology and nephrology involved Migraine 24369384 G43.90 9 uses med as needed Insomnia 280868730 G47.0 0 on trazodone [id number] Olivia Richi ROBERTS Main Office [address] [address] 08/11/2017 13:39:23 08/11/2017 14:33:46 Pes anserinus tendinitis 19526149 M76.891 Pt. can not take NSAIDs due to having 1 kidney. Will take Tylenol ES and wear elastic brace for couple of weeks. If not improved , maria del carmen will be made for orthopedis t to get cortisone injection. [id number] Indira burger MD Main Office [address] [address] 07/25/2018 09:15:17 07/25/2018 10:19:36 Adult health examination 741537575 Z00.00 all screening is utd, gets skin check 2 times a year Hepatitis C screening 41 1685214 Z11.59 Lactose intolerance 2674 28939 E73.9 Osteoporosis 48664118 M8 1.0 pt is seeing [facility] for this, they will get updated bone density, pt is thinking of evista, I encouraged her to treat her osteoporos is Anxiety disorder 5917979 06 F41.9 pt has tried multiple meds for anxiety and she is very sensitive, finds she gets more side effects than Hypercholesterolemia 136 06489 E78.00 Fatigue 87822317 R53.83 Pain in right knee 68688 37285 32886 M25.561 work related, [facility] for workmans comp Pain of le ft shoulder joint 5642394553 7731928 M25.512 from remote injury pt will set up ortho appt, [id number] Indira burger MD Main Office [address] [facility] [address] [place] [address] 01/16/2019 11:08:57 01/16/2019 11:47:06 Acute right otitis media 866110696 H66.91 stop clarithryo mycin and start zpak Nausea 570311301 R11.0 stop abx Allergic rhinitis 310809 04 J30.9 start claritin and flonase and use sinus washing [id number] Indira burger MD Main Office [address] [address] [place] [address] 08/05/2019 13:20:49 08/05/2019 15:41:13 Nasal congestion 56803993 R09.81 sounds related to allergies will start a whole pill. if any worsening will call and we can get ovid testing arranged. 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 needs nore self care, more sleep [id number] Indira burger MD Main Office [address] [place] [address] 11/14/2019 13:48:06 11/14/2019 14:44:59 Adult health examination 363480340 Z00.00 all screening is utd, gets skin check 2 times a year, is active Alopecia 66830859 L65.9 check labs Neck pain 68880015 M54.2 just had occipital nerve block, does stretching and PT Allergic rhinitis 915984 04 J30.9 start claritin and flonase and use sinus washing [id number] Indira burger MD Main Office [address] [place] [address] 01/10/2020 15:35:27 01/10/2020 16:38:34 Anxiety disorder F41.9 anxiety is flared to due pandemic. needs nore self care, more sleep Epigastric discomfort 11 2721703 R10.13 pt with severe stress from work, 3 weeks of epigastric pain c/w gastritis, PUD/GERD, will treat as below with bid PPI. check labs, if any severe pain, vomit blood or blood in stool needs urgent eval in ER, aviod NSAIDS, will refer to GI for eval [id number] [facility] [address] [facility] [address] [place] [address] 02/03/2020 06:45:06 02/04/2020 11:53:14 Gastroesophageal reflux disease 781778069 K21.9 pt is on omeprazole qd, she feels about 60% better. no vomiting, pt has appt with GI this week. advised pt to increase med to bid until GI appt Anxiety disorder F41.9 anxiety is flared to due pandemic. needs nore self care, more sleep, pt is working 7 days, when she was off she felt better, pt to start sertraline [id number] Indira burger MD [facility] [address] [facility] [address] [place] [address] 06/15/2020 07:04:06 06/15/2020 11:22:54 Anxiety disorder 440572017 F41.9 anxious and depressed, is not sleeping, burnt out from overworkin g, pt to strt sertraline , wants to start half, 3 week f/u. no suicidal thoughts or plans. I left pt a message to discuss the sertraline with her current meds including her latex glove allergy, see possible drug interactio ns. Gastroesop hageal reflux disease 857890012 K21.9 continue omeprazole Insomnia 846981979 G47.0 0 very poor sleep, not doing well with mood, sleep needs to tx, will try half an ambien, we reviewed the rare SE of amnesia and to not drive early next day and tell she is taking Migraine 76632892 G43.90 9 uses med as needed. just had injection into her neck Major depr ession single episode, in partial remission 07378103 F32.4 starting sertraline [id number] Indira burger MD [facility] [address] [facility] [address] [facility] [address] 07/13/2020 08:36:58 07/13/2020 14:20:25 Anxiety disorder 644576422 F41.9 still with work related anxiety, tried sertraline but did not like, uses alprazolam prn Insomnia 398167223 G47.0 0 refilled gabapentin which helps with sleep and preventing bad migraines, just uses a small dose. Migraine 34604810 G43.90 9 uses med as needed. 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 Call/ return if sx have not improved in 3 days, will need UA and culture at that time. Pyridium as needed TID x 1-2 days. it will make urine orange colored. call or return for worsening or concerns. [id number] Indira burger MD Main Office [address] [facility] [address] [facility] [place], [place] [address] 01/20/2021 13:59:47 01/20/2021 14:50:26 Anxiety disorder 463275901 F41.9 will be seeing psychiatry , did not like sertraline Influenza vaccine needed 8901060291 106 Z23 History of urinary tract infection 0494082373 107 Z87.440 see hpi sounds fully treated at this point [id number] Brittnee Vivas MD Main Office [address] [place], [place] [address] 07/28/2021 14:21:56 07/28/2021 15:49:22 Dysuria 70617370 R30.9 check full UA an UC, stop linezolid as no confirmed infection and pt is self treating, not improving current dysuria. Keep hydrated and await labs. Vaginal lesion 868141086 N94.89 Stop all topical products, cool water compressse s only for at least a week. [employer] Con[employer] re evaluation as lesion appears to be more warty than typical lichen sclerosis, Advised to consider possible biopsy to confirm the diagnosis as no treatment has been effective. Consider oral HRT to avoid topical products , TCA started, see below. Pruritus of vulva 280084 00 L29.2 pt is constantly irritated without relief of topical steroids, topical estrogen, uti treatment, local anesthetic s, local lubricants . Seems to be aggravated by anxiety. ? neuropathi c. She has both elavil and gabapentin at home. I advised tying TCA for neuropathi c condition, she might feel more comforatab le with gabapentin , advised at least 100mg dose at night. [id number] Tom Wilson MD Main Office [address] [place], [place] [address] 12/16/2021 11:27:44 12/16/2021 12:31:00 Fall W19.XXXA accident last night - fell on steps taking dog out, landed on trex deck, no loc - did not seek care at ER, is asymptomat ic x contusion/ ecch/edema Contusion of face 233748 004 S00.83XA lateral R orbit - check xray to r/o fx pt is asymptomat ic - low likelihood to develop postconcus michael syndrome, but did rec. 'brain rest' for a few days, then advance activity (reading, watching tv) as aniceto. Fatigue 91346527 R53.83 [id number] Indira burger MD Main Office [address] [facility] [address] [facility] [place] [address] 01/07/2022 14:58:16 01/07/2022 15:40:59 Adult health examination 871521479 Z00.00 all screening is utd needs to get more active Migraine 83513648 G43.90 9 hx of neg MRI of brain and neg carotid US Osteoporosis 89135456 M8 1.0 pt saw [facility] for this years ago, did not want meds, last bone density 2017 explained to pt she should get bone density every 2 years, will order and check Vit D level and discuss results with pt Chronic neck pain 564843 7202 107 M54.2 had PT acupucture and injections , from neck DJD [id number] Tom Wilson MD [facility] [address] [facility] [address] [facility] [place] [address] 02/04/2022 08:49:16 02/04/2022 14:31:08 COVID-19 315298845 U07.1 Beyond window for antiviral therapy and symptoms are overall mild. Persistent worsening symptoms are concerning for sinusitis vs mastoiditi s vs dental infection. Acute sinusitis 76753045 J01.90 Pt has levofloxac in 500mg at home that was given in case of UTI. In light of her medication allergies advised to start it and continue for 5 days. Has dental appt in 3 days. Advised to call/go to if symptoms worsen in the meantime. Dysfunctio n of eustachian tube 38768082 H68.001 Given failure of OTC medication s will see if short course of prednisone helps reduce inflammati on/open up sinuses. [id number] Brittnee Vivas MD Main Office [address] [facility] [address] [facility] [place] [address] 09/13/2022 10:40:30 09/13/2022 11:30:27 Injury of ankle 712008751 S99.911A R/o avulsion fracture of the ankle. Xray referral given. Meloxicam 7.5 mg daily for 2 weeks. Icing 2-3 times daily. Consider ortho referral if symptoms do not improved in 2 weeks or xray is abnormal. [id number] SHONDA HARLEY MD Main Office [address] [facility] [address] [facility] [place] [address] 01/19/2023 14:21:56 01/19/2023 15:03:22 Adult health examination 320282116 Z00.00 Health Maintenanc e FemaleA) Patient was counseled on healthy diet, exercise and nutrition due to BMI of 20.4 B) ScreeningL ast Mammogram: start at age 50 stop at 74Date: 08/04/2022R esult: BIRADS-1Ne xt: 07/2023 Last Pap smear: aged out Last Colonoscop y: start at age 45-75Date: 07/03/2015R esult: normalNext : 10 years Last DEXA scan:Date: 02/18/2022 Result: osteoporos isNext: 2 years - pt does not want to be on medication at this time C) Vaccines:I nfluenza: had two weeks ago with workTdAP: 07/29/2017Z wes: refusedPPS V23: 11/27/2020 CV20: 02/24/2022 COVID: 04/18/2020, 05/16/2020, 02/08/2021 , 08/22/2021, 05/21/2022 D) Routine blood work not ordered, had recently with work will order in JulyE) Updated patient's history RTC in one year for annual exam or sooner if any acute complaints Anxiety disorder 0623802 06 F41.9 - RENE-7 score 0- currently on alprazolam 0.5mg -> prescribed by a specialist > will take 0.25mg instead of 0.5mg Gastroesop hageal reflux disease 999320685 K21.9 The following lifestyle changes are recommende d and counseled :-Losing weight: Losing weight helps people who are overweight to reduce acid reflux.-Ra ising the head of your bed six to eight inches-Edy iding foods that trigger symptoms Avoid excessive caffeine, chocolate, alcohol, peppermint , and fatty foods.- c/w omeprazole 20mg QD Insomnia 087402484 G47.0 0 - will take amitriptyl ine 5mg as needed- counselled on sleep hygiene Postmenopa usal osteoporosis 486962390 M81.0 - has been following with endo- not currently on any medication , pt prefers to treat with lifestyle and vitamins at this time- on calcium and vitamin C Migraine 41803604 G43.90 9 - c/w sumatripta n 25mg as needed- with associated neck pain which is a trigger for her headaches> pt will be getting nerve block injections with PE (not botox)> will use baclofen as needed- pt does follow with neurology Overactive urinary bladder 518377054 N32.81 - c/w solifenaci n 5mg- will use nitro as needed for UTI prevention Fibromyalgia 911018765 M 79.7 - pt does exercise which provides some relief- did try cymbalta in the past and pt was not able to tolerate- c/w amitriptyl ine Injury of kidney 5056454 3 S37.002D - pt has only right sided kidney that is currently functionin g- pt follow with nephrology Immunization refused 275 327586 Z28.21 [id number] SHONDA HARLEY MD Main Office [address] [place] [address] 07/25/2023 14:42:44 07/25/2023 15:12:49 Anxiety disorder 051917449 F41.9 - RENE-7 score 0 (done at last visit)- currently on alprazolam 0.5mg -> prescribed by a specialist > will take 0.25mg instead of 0.5mg- c/w amitriptyl ine 5mg QD (not taking consistent ly and only takes half of 10)- has the 10% better maria del carmen which she uses for meditation Gastroesop hageal reflux disease 193385714 K21.9 - recent EGD was normal 07/04/2023- c/w omeprazole 20mg QD The following lifestyle changes are recommende d and counseled :-Losing weight: Losing weight helps people who are overweight to reduce acid reflux.-Ra ising the head of your bed six to eight inches-Edy iding foods that trigger symptoms Avoid excessive caffeine, chocolate, alcohol, peppermint , and fatty foods. Insomnia 956512764 G47.0 0 - will take amitriptyl ine 5mg as needed- counselled on sleep hygiene Postmenopa usal osteoporosis 773615768 M81.0 - has been following with endo- not currently on any medication , pt prefers to treat with lifestyle and vitamins at this time- on calcium and vitamin C Migraine 98888812 G43.90 9 - c/w sumatripta n 25mg as needed- with associated neck pain which is a trigger for her headaches> pt will be getting nerve block injections with PE (not botox)> will use baclofen as needed> uses a nightguard - pt does follow with neurology Overactive urinary bladder 897941830 N32.81 - c/w solifenaci n 5mg- will use nitro as needed for UTI prevention Fibromyalgia 807841935 M 79.7 - pt does exercise which provides some relief- did try cymbalta in the past and pt was not able to tolerate- c/w amitriptyl ine Elevated blood-pressure reading without diagnosis of hypertension 589639697 R03.0 - BP today is 145/77 and on repeat 122/82- pt did have mountain dew and pizza for lunch- pt is usually under good control, will continue to monitor> will not start medication at this time Hydronephrosis 31874193 N13.30 - pt has only right sided kidney that is currently functionin g- pt follow with nephrology [id number] Alex Crawford MD Main Office [address] [address] [place] [address] 01/01/2024 13:32:03 01/01/2024 14:21:12 Irritable bowel syndrome 17542950 K58.9 Recurrent urinary tract infection 118274631 N39.0 Will check a UA with a reflex culture and refer her to urology (Dr Eason) who she has seen in the past. [id number] SHONDA HARLEY MD Main Office [address] [facility] [address] [place] [address] 01/23/2024 08:46:51 01/23/2024 09:17:10 Anxiety disorder 727765286 F41.9 - RENE-7 score 21- pt is currently doing some meditation - currently on alprazolam 0.5mg -> prescribed by a specialist > will take 0.25mg instead of 0.5mg- c/w amitriptyl ine 10 mg QD (not taking consistent ly)- pt does not want to make any changes, most due to work Gastroesop hageal reflux disease 791626732 K21.9 - recent EGD was normal 07/04/2023- c/w omeprazole 20mg QD as needed The following lifestyle changes are recommende d and counseled :-Losing weight: Losing weight helps people who are overweight to reduce acid reflux.-Ra ising the head of your bed six to eight inches-Edy iding foods that trigger symptoms Avoid excessive caffeine, chocolate, alcohol, peppermint , and fatty foods. Insomnia 244285546 G47.0 0 - will take amitriptyl ine 5mg as needed- counselled on sleep hygiene Postmenopa usal osteoporosis 287677695 M81.0 - has been following with endo- not currently on any medication , pt prefers to treat with lifestyle and vitamins at this time- on calcium and vitamin C Migraine 93661418 G43.90 9 - c/w sumatripta n 25mg as needed- with associated neck pain which is a trigger for her headaches> pt will be getting nerve block injections with PE (not botox)> will use baclofen as needed> uses a nightguard - pt does follow with neurology Overactive urinary bladder 083415963 N32.81 - c/w solifenaci n 5mg- will use nitro as needed for UTI prevention Fibromyalgia 729283482 M 79.7 - pt does exercise which provides some relief- did try cymbalta in the past and pt was not able to tolerate- c/w amitriptyl ine Hydronephrosis 98041678 N13.30 - pt has only right sided kidney that is currently functionin g- pt follow with nephrology Irritable bowel syndrome 77235946 K58.9 - under good control- pt is currently on amitriptyl ine and hyoscyamin e Adult heal th examination 316090119 Z00.00 Health Maintenanc e FemaleA) Patient was counseled on healthy diet, exercise and nutrition due to BMI of 21 B) ScreeningL ast Mammogram: start at age 50 stop at 74Date: 08/07/2023 esult: BIRADS-1Ne xt: 07/2024 Last Pap smear: aged out Last Colonoscop y: start at age 45-75Date: 07/03/2015R esult: normalNext : 10 years Last DEXA scan:Date: 02/18/2022 Result: osteoporos isNext: deferred - pt does not want to be on medication at this time C) Vaccines:I nfluenza: had it workTdAP: 07/29/2017Z wes: refusedPPS V23: 11/27/2020 CV20: 02/24/2022 COVID: 04/18/2020, 05/16/2020, 02/08/2021 , 08/22/2021, 05/21/2022 D) Routine blood work not ordered, had recently with work will order in ) Updated patient's history RTC in one year for annual exam or sooner if any acute complaints Fatigue 20776526 R53.83 Z00.00 Hyperlipidemia 10529450 E78.5 Z00.00 FASTING Nasal congestion 2160392 0 R09.81 - medication refilled [id number] SHONDA HARLEY MD Main Office [address] [facility] [address] [facility] [place] [address] 02/29/2024 11:11:13 02/29/2024 11:35:10 Pain of left shoulder joint 2919658846 2844924 M25.512 - differenti als: OA at the AC joint vs rotator cuff tear- pt referred to orthopedic s as do believe she will ultimately need an MRI for further evaluation and can have work-up at one location- can continue with tylenol and lidocaine patches as needed- suggested ibuprofen as needed -> advised to take with food and a max dose of 800mg- pt advised not to place arm in sling as can develop frozen shoulder Osteoarthr osis of the carpometacarpal joint of the thumb 58591704 M18.11 - located on te right side- pt would benefit from steroid injection- pt referred to hand surgery [id number] SHONDA HARLEY MD Main Office [address] [facility] [address] [facility] [place] [address] 05/03/2024 15:30:51 05/03/2024 16:12:48 Migraine 05797117 G43.909 - c/w sumatripta n 25mg as needed- with associated neck pain which is a trigger for her headaches> pt will be getting nerve block injections with PE (not botox)> will use amitriptyl ine as needed> uses a nightguard - pt does follow with neurology- Has been on several medication s in the past which include: baclofen, flexeril, gabapentin , percocet, nortriptyl ine, tizanidine - currently worsening likely triggered due increase in anxiety and grief patient is nakita urrutia, to help started patient on soma> advised patient to cut medication in half> pt advised to take at night and cannot drive while on medication > pt wont take with alprazolam or amitriptyl ine while taking medication Torticollis 16609745 M43 .6 Elevated blood-pressure reading without diagnosis of hypertension 803952858 R03.0 - BP today is 132/78- pt has been under a lot of stress with of several family members and increase in pain from her headaches so at this time time we will monitor> will not start medication at this time- RTC in 3 months Generalize d anxiety disorder 54204104 F41.1 - increased due to recent in the family- pt does have a psychiatri st who prescribes all meds- does not current want to change as she very sensitive to medication s- will monitor [id number] SHONDA HARLEY MD Main Office [address] [facility] [address] [place] [address] 07/19/2024 14:42:58 07/19/2024 15:26:26 Elevated blood-pressure reading without diagnosis of hypertension 813315647 R03.0 - at goal- BP today is 131/77 and on repeat 121/77- home BP is within normal limits- will not start any meds at this time Migraine 70344681 G43.90 9 - c/w sumatripta n 25mg as needed- with associated neck pain which is a trigger for her headaches> pt will be getting nerve block injections with PE (not botox)> will use amitriptyl ine as needed> uses a nightguard - pt does follow with neurology- Has been on several medication s in the past which include: baclofen, flexeril, gabapentin , percocet, nortriptyl ine, tizanidine - pt did have good relief with some, only took quarter pill as needed can continue as needed> pt advised to take at night and cannot drive while on medication > pt wont take with alprazolam or amitriptyl ine while taking medication Dysuria 21062218 R30.0 - urine dip stick was negative- will send results for culture to ensure no UTI Pain of le ft shoulder joint 9766866590 0506594 M25.512 - differenti als: OA at the AC joint vs rotator cuff tear- pt referred to orthopedic s- can continue with tylenol and lidocaine patches as needed- suggested ibuprofen as needed -> advised to take with food and a max dose of 800mg- pt advised not to place arm in sling as can develop frozen shoulder- MRI completed which showed a small partial tear in the supraspina tus- pt will be starting physical therapy [id number] SHONDA HARLEY MD Main Office [address] [place] [address] 08/23/2024 13:48:21 08/23/2024 14:14:16 Pain of toe of right foot 6363344280 44447 M79.674 996765 - has been present for one month with very little improvemen t- due to trauma- pt advised to apply ice and heat- pt would like to avoid NSAIDs as she worried for her kidneys> GFR and creatine levels are normal- ordered x-ray of the toe for further evaluation - can consider ultrasound if x-ray normal [id number] Tom Wilson MD Main Office [address] [address] [place] [address] 01/13/2025 15:39:01 01/13/2025 16:57:58 Bacterial sinusitis 012335848 J32.9 B96.89 5245434 cont flonase, but rec increase ns spray, steam, warm compress neckwill rx c abxrecomme nd probiotics while on abx [id number] SHONDA HARLEY MD Main Office [address] [address] [place] [address] 01/23/2025 14:56:01 01/23/2025 15:40:15 Adult health examination 972617859 Z00.00 Health Maintenanc e FemaleA) Patient was counseled on healthy diet, exercise and nutrition due to BMI of 20.8 B) ScreeningL ast Mammogram: start at age 50 stop at 74Date: 08/29/2024R esult: BIRADS-1Ne xt: 08/2025 Last Pap smear: aged out Last Colonoscop y: start at age 45-75Date: 07/03/2015R esult: normalNext : 10 years Last DEXA scan:Date: 02/18/2022 Result: osteoporos isNext: as an appoitment , follows with endo C) Vaccines:I nfluenza: 12/20/2024T dAP: 07/29/2017Z wes: 09/26/2024, 01/23/2025 PPSV23: 11/27/2020 CV20: 02/24/2022 COVID: 04/18/2020, 05/16/2020, 02/08/2021 , 08/22/2021, 05/21/2022 D) Routine blood work not ordered, had recently with work will order in ) Updated patient's history RTC in one year for annual exam or sooner if any acute complaints Migraine [id number] G43.90 9 - c/w sumatripta n 25mg as needed- with associated neck pain which is a trigger for her headaches> pt will be getting nerve block injections with PE (not botox)> will use amitriptyl ine as needed> uses a nightguard - pt does follow with neurology- Has been on several medication s in the past which include: baclofen, flexeril, gabapentin , percocet, nortriptyl ine, tizanidine - soma did have good relief with some, only took quarter pill as needed can continue as needed> pt advised to take at night and cannot drive while on medication > pt wont take with alprazolam or amitriptyl ine while taking medication - pt does do massages with good relief Anxiety disorder [id number] F41.9 - RENE-7 score 17- pt is currently doing some meditation - currently on alprazolam 0.5mg -> prescribed by a specialist > will take 0.25mg instead of 0.5mg- c/w amitriptyl ine 10 mg QD (not taking consistent ly)- pt does not want to make any changes, most due to work Postmenopa usal osteoporosis [id number] M81.0 - has been following with endo- not currently on any medication , pt prefers to treat with lifestyle and vitamins at this time- on calcium and vitamin C Gastroesop hageal reflux disease [id number] K21.9 - recent EGD was normal 07/04/2023- c/w omeprazole 20mg QD as needed The following lifestyle changes are recommende d and counseled :-Losing weight: Losing weight helps people who are overweight to reduce acid reflux.-Ra ising the head of your bed six to eight inches-Edy iding foods that trigger symptoms Avoid excessive caffeine, chocolate, alcohol, peppermint , and fatty foods. Irritable bowel syndrome [id number] K58.9 - under good control- pt is currently on amitriptyl ine and hyoscyamin e Insomnia [id number] G47.0 0 - will take amitriptyl ine 5mg as needed- counselled on sleep hygiene Seasonal allergy [id number] J30.2 34898 - pt requesting to see respiratory therapy technician to speak about allergy shots Fatigue [id number] R53.83 [id number] Hyperlipidemia [id number] E78.5 [id number] fasting Mood disorder [id number] F 39 41374 - PHQ-9 score of 9- has not worsened- pt currently declines medication , she will take amitriptyl ine as needed [id number] SHONDA HARLEY MD Main Office [address] [id number] 03/04/2025 10:44:13 03/04/2025 11:14:35 Anxiety disorder [id number] F41.9 - worsening- RENE-7 score 21- pt is currently doing some meditation - currently on alprazolam 0.5mg -> prescribed by a specialist > will take 0.25mg instead of 0.5mg- pt was on amitriptyl ine 10 mg QD (not taking consistent ly- would cut in 4)- pt does not want to make any changes, most due to work> also not ready to go on leave from work> as tried several medication s in the past and all caused AE- recommende d patient find a therapist Mood disorder [id number] F 39 75057 - PHQ-9 score of 11- worsened- pt currently declines medication , she will take amitriptyl ine as needed- worsening due to her work> spoke about changing jobs, retiring and going on leave vs sticking with it -> will stick with it for now- will look into getting a therapist Health Concerns Section Related Observation LastModified by Organization Detai ls LastModified Time None Recorded Concern Status LastModified by Organization Details LastModified Time None Recorded Advance Directives Directive N: HCP declined Payers Insurance Date Sequence Insurance Name Policy Number Policy Peralta Covered Member ID Peralta Member ID Guarantor Name 08/23/2024 1 [employer] [id number] Fadumo Boucher Rj [id number] Fadumo A Rj 08/23/2024 1 [facility] ([facility] [id number] Fadumo De La Rosa [id number] Fadumo Boucher Rj 08/23/2024 1 [facility] ([facility]) [id number] Fadumo De La Rosa [id number] Fadumo Sander De La Rosa 03/04/2025 1 [place] [facility] [id number] Fadumo De La Rosa [id number] Fadumo De La Rosa Notes Date Note Type Note Provider Name and Address Organization Details Recorded Time 07/20/19 25 text/htm l HeadacheReported by PatientHPIFor quality, patient reportstightnessbut reportsnot the worst headache everandsimilar to previous headaches. For location, patient reportsunilateralandincluding neck. For severity, patient reportssevere. For duration, patient reportsintermittent. For onset/timing, patient reportsabrupt onsetandoccur daily. For context, patient reportsnot related to trauma. For alleviating factors, patient reportscaffeine intake. For associated symptoms, patient reportsno vomiting,no sensitivity to light,tearing/watery eyes,no confusion,no slurred speech,no preceeding aura,no double vision,normal feeling/sensation,no motor paralysis,no nosebleeds,no hoarseness,no sore throat, andno hearing loss.ROS as noted in the HPI Fadumo De La Rosa is a 68 year old F who presents to the clinic for a blood pressure check. On last visit, patients was sad (from grief) and was having a lot pain in her neck. Pt does have hx of torticollis and migraines as a cause of this. Today, patient she is doing slightly better. She is still grieving. Now following [facility] for her left sided shoulder pain. Patient had an MRI of the shoulder which showed mild supraspinatus tendinopathy with a partial tear. Pt will be starting physical therapy. Patient has a history headaches caused by torticollis for which she is following with neurology. Has been taking amitriptyline 5mg nightly and sumatriptan 25mg as needed. Also wears a month guard for TMJ. Has been on several medications in the past which include: baclofen, flexeril, gabapentin, percocet, nortriptyline, tizanidine She is also following with a psychiatrist for her anxiety. Currently takes a quarter of alprazolam 0.25mg QD. Pt is very sensitive to medication as it does not make her feel herself. Has tried: duloxetine, lexapro, paroxetine, sertraline, venlafaxine SHONDA HARLEY MD [address] [address], [place], [phone], [facility] 07/19/2024 16:44:04 08/24/19 25 text/htm l ROS as noted in the HPI Fadumo De La Rosa is a 68 year old F who presents to the clinic for right toe second digit pain. Pt sent a message to on 08/13 stating: I injured my toe about a month and a half ago and it took a couple of days of hobbling around, but I used a shoe for support and I haven t had a lot of pain, but I m concerned because I don t know if I fractured it and I m sure there s not much that can be done for it, but I just wanted an opinion of what you think how It looks like now? Today, patient mentions that she was getting a pedicure and it was person doing her nails that commented on the foot. It does not bother her however she just wanted to get it checked as it as present for such along long. Pt was in the process of getting out the shower when she hit her toe. Continues to have bruising. However there is no pain. SHONDA HARLEY MD [address] [address], [place], [phone], [facility] 08/23/2024 14:39:23 01/14/20 text/htm l congestion started 9 days ago, went to ER.rev ER note - negative w/u, including cxrthen had f/c assoc c pur nasal dc, hines, pnd/cough, some occ tooth painnegative flu, covid testno wheezing, sobvertigo better latelyocc ears blockedtaking prn tabitha Stoddard PA-C [address] [address], [place], [phone], [facility] 01/13/2025 17:39:38 01/24/20 text/htm l Fadumo De La Rosa is a 68 year old F who presented to the clinic for her annual exam. Patient was seen in the ED for nystagmus. Negative work-up. Was seen at [place]. Pt denies any emergency room visits or hospitalizations during this time. Complaints: none Is not using ASA.OTC/Herbal supplements use: MMV, vitamin D3, biotin, TUMS for calcium, MMV with iron every other day Gynecologic HistoryPatient's last menstrual period was 18 years agoNo spottingSexually active: yesContraception: menopause+ abnormal paps, underwent LEEP and was normalDenies cysts, fibroidsTaking estrogen cream for vaginal dryness Obstetric HistoryGravida: 1Para: 1AB: 0Livin (C/S)Complications: breech Drug use: neverEtoh use: rarelytobacco use: neverspf/derm: Dental: every 6 monthsEye: once a yearDiet: lactose intoleranceActivity: yoga, swimming SHONDA HARLEY MD [address], [place], [address], [facility] 01/23/2025 16:31:42 03/04/20 text/htm l Anxiety/DepressionReported by PatientHPIFor quality, patient reportssymptoms worse during the dayandincreased anxiety. For context, patient reportstrouble at work. For associated symptoms, patient reportsanxiety,hypersensitivity, low self-esteem, andsocial withdrawalbut reportsdenies homicidal ideations,no significant weight gain,no significant weight loss,no visual/auditory hallucinations,no delusions,no shortness of breath,appetite good,energy good,no apathy, andmaintaining functionality. For severity, patient reportsdenies suicidal ideations,able to maintain relationships, anddoes not interfere with activities of daily living. For duration, patient reportssymptoms lasting over 2 weeks. For onset/timing, patient reportsstill present. For modifying factors, patient reportssocial support.ROS as noted in the HPI Fadumo De La Rosa is a 69 year old F who presents to the clinic for discussion of going on work leave. Patient mentions there was incident at work. 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 Did say hi to some people but not everyone in the group. When the conference was over, patient's boss went to HR to file a complaint on behalf a co-worker that mentioned that patient did not say to them. Patient was called in by HR and this was investigated. This caused patient's anxiety to skyrocket. She feels on edge at work all the time. She is unsure who to trust. The work environment has been very clickly. Patient does enjoy her job and does not want to retire or leave it. Currently trying to find a therapist without much success at this time. Has tried several medication in the past with little improvement and cause a lot side effects. SHONDA HARLEY MD [address], [address], [facility] 03/04/2025 14:17:40 OBGyn Episode No OBEpisode recorded.
--- OUTSIDE RECORDS SUMMARY | 2025-03-20 23:12 | XMS_ITS | Continuity of Care Document ---
Author Organization [facility], Main Office Address [address] [facility] [address] [place] [id number] Care Team Providers Care Air Sampling And Monitoring Name Role Phone SUSY PHELPS Alarm Installer [facility] Satellite Tv Technician Installer WYATT GONZALEZ JR Liver Trimmer BALWINDER HARE Urologist ROBBIE RANGEL Neurologist MING RUFFIN Psychiatrist [phone] SAMMY RUTLEDGE Supervisor Personnel Clerks [facility] ENDOCRINOLOGY Endocrinologis t MARVA SAUNDERS Alarm Installer [facility] Orthopedic Surgeon [facility] Phys. Med. & Rehab BAUDILIO CHISHOLM Primary Care Provider Assessment No assessment recorded. Plan of Treatment Reminders Order Date Submit Date Provider Last Modified By Organization Details Last Modified Time Details Appointments FOLLOW UP 2025 03:30P M BAUDILIO CHISHOLM MD Not available Not available Not available Lab None recorded. Referral None recorded. Procedures None recorded. Surgeries None recorded. Imaging None recorded. Medication Orders doxycycli ne hyclate 100 mg tablet 2024 025 ADAN [id number], [address] [facility], [place], [address], 01/23/2025 15:21:28 Patient TargetsNo targets recorded. Patient Instructions Encounter Date Encounter Id Patient Instructions Last Modified By Organization Details Last Modified Time 01/13/2025 [id number] saline nasal washes: care instructions [facility] Not available 01/13/2025 16:38:04 eustachian tube problems: [facility] 01/13/2025 16:38:04 Acute Sinusitis: [facility] 01/13/2025 16:38:04 Follow up if no improvement or if symptoms worsen. pmadden Not available 01/13/2025 16:26:03 Reason for Referral None Reported. Results Created Date Observation Date Name Description Value Unit Range Abnormal Flag Note LastModifiedBy Organization Detail LastModifiedTime 01/03/2001/02/2025 XR, chest , 1 view No observ ation record ed. [facility] (Medical Records) [address] [place], [address], 01/13/2025 16:24:04 01/03/20 25 01/02/2025 CT, angio gram, head + neck, w/ contr ast No observ ation record ed. [facility] (Medical Records) [address] [place], [address], 01/13/2025 16:24:32 01/24/20 25 09/21/2024 MRI, cervi marta spine , w/o contr ast No observ ation record ed. Not Available 01/24 07:37:47 03/14/2002/21/2025 DEXA, axial skele ton Name:Emily Davila t ID: [id number] Age:69 years Sex:Fe male Ethnic ity:Wh ite Date of : [birth year] Reason : M85.89 ; Clinic al Questi on(s): Other: - Referr ing Provid er:Darnell anna MD Study: Dexa Bone Densit y (Axial [...] determ ined by WHO criter ia. WSN: [id number] Orderi ng Physic seun: Brayan Christensen ie Dictat ed By: Bijal Hawthorne MD Dictat ed Date/T sheryl: 2:19 pm Review ed By: Bijal Hawthorne MD Signed By: Bijal Hawthorne MD Signed Date/T sheryl: 2:19 pm Transc ribed By: VENKAT Transc ribed Date/T sheryl: 2:18 pm Patien t Class: Outpat ient [facility] (Outpt Imaging) [address] [place], [address], 03/15/2025 17:49:20 Result Notes None recorded. Problems Name Problem SNOMED Code Status Onset Date Resolution Date Notes Provider Name and Address Organization Details Recorded Time Migraine 31794160 Active 2016 JOSE Lee [facility] 14:11:14 Anxiety disorder 687347063 Active 2016 JOSE Lee [facility] 14:11:14 Gastroesophage al reflux disease 215100142 Active 2016 JOSE Lee [facility] 14:11:14 Insomnia 481827169 Active 2016 JOSE Lee [facility] 14:11:14 Scoliosis deformity of spine 102722432 Active 2016 Abigail Viera MA null, [facility] 1 14:11:14 Postmenopausal osteoporosis 585921960 Active 2018 Abigail Viera MA null, [facility] 1 14:11:14 Fibromyalgia 097037710 Active 2022 BAUDILIO CHISHOLM MD [address], [place], [address], [facility] 3 14:43:34 Irritable bowel syndrome 66783461 Active 2023 Ira Velez LPN null, [facility] 4 14:53:03 Hydronephrosis 77868359 Active 2023 Maria Elena Ramos null, [facility] 4 14:09:31 Osteoarthrosis of the carpometacarpa l joint of the thumb 53554907 Active 2023 Maria Elena Ramos null, [facility] 4 13:48:09 Statin declined 490167420 Active 2024 BAUDILIO CHISHOLM MD [address], [place], [phone], [facility] 5 19:29:04 Problem Notes None recorded. Procedures Surgical History Date Name Laterality Status Provider Name and Address Organization Details Recorded Time 09/22/19 25 Most Recent Mammogram completed Abigail Viera MA [facility] 01/23/2025 15:16:54 07/04/19 24 Endoscopic us exam esoph completed Cathy Beverly [facility] 07/05/2023 09:06:15 08/03/19 22 Mammogram both breasts completed Renee Cosme [facility] 08/05/2021 13:52:25 08/05/19 21 Date of Last Pap Smear completed Abigail Viera MA [facility] 11/27/2020 14:46:47 03/10/20 18 root canal preparation completed Anya anderson MA [facility] 07/25/2018 09:29:53 11/30/19 18 root canal preparation completed Anya anderson MA [facility] 07/25/2018 09:29:45 09/10/19 17 Most Recent Bone Density completed Lucina Glez [facility] 02/11/2017 11:48:36 09/10/19 17 Dxa bone density luis carlos vrt fx completed Nita Garay [facility] 02/17/2017 13:37:51 07/03/19 16 Date of Last Colonoscopy completed Anya anderson MA [facility] 07/25/2018 08:47:50 07/03/19 16 Colonoscopy completed Anya anderson MA [facility] 07/25/2018 09:18:35 05/24/18 90 Caesarean Section completed Abigail Viera MA [facility] 11/27/2020 14:35:12 Tonsillectomy completed Abigail brink MA [facility] 02/10/2017 10:50:18 delivery completed Abigail ledbetter MA [facility] 02/10/2017 10:58:33 Endometrial Ablation completed Abigail Viera MA [facility] 02/10/2017 10:58:44 Imaging Results None recorded. Procedure Notes None recorded. Medical Equipment None Reported. Allergies Allergen ID Allergen Name Allergen Category Reaction Reaction Severity Criticality Documentation Date Start Date Code Code System Note Provider Name and Address Organization Details Recorded Time 02783 latex gloves medicatio n itching moderate Not available 02/10/2017 JOSE Lee [facility] 7 10:49:57 38519 codeine medicatio n vomiting Not available Not available 02/10/20172020 2670 RxNorm Nita walton [facility] 10:26:09 24501 Demerol medicatio n tachycard ia Not available Not available 02/10/2017 18963 1 RxNorm Abigailefrain MonetViera JOSE isabelle [facility] 7 10:49:57 91553 Iodinated contrast media (substanc e) medicatio n lighthead edness Not available Not available 02/10/20172020 50877 2003 SNOMED Qiana Mcclendon MA isabelle [facility] 2 12:49:34 55570 Product containin g penicilli n (product) medicatio n hives severe Not available 02/10/20172020 37143 8001 [facility]ELVIA [facility]clend[facility] 2 12:49:34 72396 Substance with sulfonami de structure and antibacte rial mechanism of action (substanc e) medicatio n hives moderate Not available 07/25/20182020 43166 8003 SNELVIA Arkdale Gurinderdaniel [facility] 2 12:49:34 11006 sertralin e medicatio n headache severe Not available 07/13/20202020 81472 RxNorm Nita Jarrod walton [facility] 1 10:26:09 08039 sulfur medicatio n hives moderate Not available 01/05/20212020 05741 RxNorm CHRIST Trevizo [facility] 4 13:44:57 39775 meperidin e medicatio n palpitati ons mild Not available 01/05/20212020 6754 RxNorm [facility]hubert [facility] 1 10:26:09 79392 Adhesive agent (substanc e) environme nt,medica tion itching moderate Not available 02/04/20222020 20638 0007 SNELVIA Qiana Mcclendon [facility] 2 12:49:34 15165 Product containin g gadoliniu m and/or gadoliniu m compound (product) medicatio n Not available Not available Not available 07/25/20232023 03794 3008 SNOMED Other react ions and sever ities : 'Unkn own'. Ira Velez LPN null, [facility] 4 14:51:47 81078 latex environme nt,medica tion Not available Not available Not available 02/28/20252022 46146 91 RxNorm Not Available [facility]an - External Data Service - prod 5 08:38:33 34630 meperidin e hydrochlo ride medicatio n Not available Not available Not available 02/28/20252022 33550 5 RxNorm Not Available [facility] - External Data Service - prod 5 08:38:33 73974 Penicilli n Not available Not available Not available Not available 02/28/20252022 98309 RxNorm Not Available [facility] - External Data Service - prod 5 08:38:33 40723 dye environme nt Not available Not available Not available 02/28/2025 Not Available [facility] - External Data Service - prod 5 08:39:25 21890 sulfameth oxazole / trimethop rim medicatio n Not available Not available Not available 02/28/2025 28104 RxNorm unrec ogniz ed react ion (text : hives , code: [id number]) (from exter [facility] e) Not Available [facility] - External Data [...] Not Available nystatin 100,000 unit/mL oral suspension 026111 units 4 times a day by oral [...] propionate 50 mcg/actuat ion nasal spray,susp ension [place] 2 sprays every day by intranas al [...] Not Available Not Available Vitals Date Recorded Body height Body mass index (BMI) Body weight Heart rate Oxygen saturation Body temperature Systolic And Diastolic Systolic And Diastolic Provider Name and Address Organization Details Last Updated DateTime 5 168.91 cm 20.8 kg/m2 17374.8 8 g 70 /min 99 % 98.1 [degF] 151/90 mm[Hg] 138/88 mm[Hg] Keila Her [facility] 5 15:54:42 Social History Question Answer Notes LastModified by Organizat ion Details LastModified Time Tobacco Smoking Status Never Smoker JOSE Lee, [facility] 02/10/2017 10:50:12 Do You Have An Advance Directive? No HCP Declined Information not available 02/04/2022 Is Blood Transfusion Acceptable In An Emergency? Yes Information not available 02/10/2017 What Is Your Level Of Caffeine Consumption? Occasional [email or web address] Information not available 01/07/2022 How Much Tobacco Do You Chew? None Information not available 02/10/2017 In The 14 [...] Type Of Diet Are You Following? REGULAR [email or web address] Information not available 02/10/2017 Which Illicit Or Recreational Drugs Have You Used? None Information not available 07/25/2018 Live Alone Or With Others? With Others ([place]) Information not available 02/04/2022 Do You Take Precautions To Prevent Distracted Driving? Yes Information not available 02/10/2017 How Often Do You Need To Have Someone Help You When You Read Instructions, Pamphlets, Or Other Written Material From Your Doctor Or Pharmacy? Never [email or web address] Information not available 02/10/2017 Have You Served In The ? No Information not available 07/25/2018 Have You Or Anyone In Your Household Had Any Of The Following Symptoms In The Last 14 Days: Sore Throat, Cough, Chills, Body Aches For Unknown Reasons, Shortness Of Breath For Unknown Reasons, Loss Of Smell, Loss Of Taste, Fever At Or Greater Than 100 Degrees Fahrenheit? No [email or web address] Information not available 11/14/2019 Are You Or Anyone In Your Household A Health Care Provider Or Emergency Responder? Yes Public Health Nurse [email or web address] Information not available 01/10/2020 To The Best Of Your Knowledge Have You Been In Close Proximity To Any Individual Who Tested Positive For COVID-19? No Information not available 11/14/2019 *AWV ONLY* Are You Presently Prescribed Opioid Medication By PCP Or Specialist? If YES -Provider Assess The Benefit For Other, Non-opioid Pain Therapies Instead, Even If The Patient Does Not Have OUD But Is Possibly At Risk. No Information not available 01/19/2023 Have You Recently Traveled To A COVID-19 High Risk Area Or Gathering In The Last 10 Days? No [email or web address] Information not available 11/27/2020 What Was The Date Of Your Most Recent Tobacco Screening? 01/23/2025 [email or web address] Information not available 01/23/2025 How Many Children Do You Have? 1 Ilan Information not available 07/25/2018 Do You Use Protection During Sex? Always [email or web address] Information not available 02/10/2017 Do You Use Your Seat Belt Or Car Seat Routinely? Yes [email or web address] Information not available 11/27/2020 Seat Belts Used Routinely Yes Information not available 02/04/2022 Are You Sexually Active? No [email or web address] Information not available 11/27/2020 Smoke Alarm In Home Yes Information not available 02/04/2022 Do You Have Smoke And Carbon Monoxide Detectors In Your Home? Yes [email or web address] Information not available 11/27/2020 At What Age Did You Start Smoking Tobacco? 0 Information not available 07/25/2018 Are You Passively Exposed To Smoke? No [email or web address] Information not available 02/10/2017 How Much Tobacco Do You Smoke? No Information not available 07/25/2018 Do You Use Sunscreen Routinely? Yes Information not available 02/10/2017 How Many Years Have You Smoked Tobacco? 0 Information not available 07/25/2018 Sex: Unknown Functional Status Question Answer Note LastModified by Organizat ion Details LastModified Time What is your level of alcohol consumption? Occasional rare [email or web address] Information not available 01/23/2024 Do you or have you ever used smokeless tobacco? Never used smokeless tobacco [email or web address] Information not available 11/14/2019 Are you currently employed? Yes [email or web address] Information not available 02/10/2017 Are you able to walk independently without assistance or assistive devices? YESWOREST Information not available 02/04/2022 Are you able to care for yourself independently? Yes [email or web address] Information not available 02/10/2017 What is your [...] Organization Details LastModified Time Father Heart disease [email or web address] Not available 02/10 10:56:56 Father History of malignant neoplasm of esophagus Not available 2021 08:49:48 Father Migraine [email or web address] Not availab le 11/27/2020 14:34:47 Mother Heart disease [email or web address] Not available 01/07 14:58:29 Mother Diabetes mellitus [email or web address] Not available 02/10 10:57:47 Mother Migraine [email or web address] Not availab le 11/27/2020 14:34:47 Notes:No FH of breast or col on cancer Medical History Condition Response Gout N Other N Kidney Stones N Blood Diseases N Hyperthyroidism N Breast Cancer N Hypothyroidism N Lung Disease N Depression Y COPD N Defects or Inherited Disease N Anesthesia Complications N Headaches/Migraines Y Anxiety Disorder Y Varicose Veins Y Obesity N Vision or Eye Problems N Arthritis N Head Injury/Concussion N Infertility N Polyps N Congenital Anomalies N Acid Reflux (GERD) Y Cancer N Stroke N ADHD N Endometriosis Y High Cholesterol N Liver Disease N Fibromyalgia Y Kidney Disease Y Heart Problems N Ear or Hearing Problems N Hospitalizations N Thyroid Problems N GI Problems Y Acne N Eating Disorder N Skin Problems Y Anemia N Constipation Y Bladder Problems N Mental Illness N Diabetes N Ovarian Cancer N Blood Transfusions N Seizures/Epilepsy N Tuberculosis N AIDS/HIV N Congestive Heart Failure (CHF) N Eczema N Abuse/Domestic Violence N Diverticulitis N Asthma N Allergies Y Reflux/GERD Y [...] Recorded Time Tdap 009 completed Not Available [facility] 04/20/2023 18:54:16 Tdap 018 completed Not Available [facility] 04/20/2023 18:54:16 Influenza, MDCK, quadrivalent, preservative 019 completed Not Available [facility] 04/20/2023 18:54:16 COVID-19, mRNA, LNP-S, PF, 100 mcg/0.5mL dose or 50 mcg/0.25mL dose 021 completed Not Available [facility] 04/20/2023 18:54:16 COVID-19, mRNA, LNP-S, PF, 100 mcg/0.5mL dose or 50 mcg/0.25mL dose 021 completed Not Available [facility] 04/20/2023 18:54:16 Influenza, split virus, trivalent, PF 017 completed Not Available [facility] 04/20/2023 18:54:17 Influenza, split virus, trivalent, PF 016 completed Not Available [facility] 04/20/2023 18:54:17 Influenza, recombinant, quadrivalent, PF 020 completed Not Available [facility] 04/20/2023 18:54:16 COVID-19, mRNA, LNP-S, PF, 100 mcg/0.5mL dose or 50 mcg/0.25mL dose 021 completed Not Available [facility] 04/20/2023 18:54:16 Influenza, split virus, quadrivalent, PF 018 completed Not Available [facility] 04/20/2023 18:54:17 COVID-19, mRNA, LNP-S, PF, 100 mcg/0.5mL dose or 50 mcg/0.25mL dose 022 completed Not Available [facility] 04/20/2023 18:54:16 Influenza, high-dose, quadrivalent, PF 021 completed Not Available [facility] 04/20/2023 18:54:16 Influenza, MDCK, quadrivalent, PF 022 completed Not Available [facility] 04/20/2023 18:54:16 pneumococcal polysaccharide PPV23 021 completed Not Available [facility] 04/20/2023 18:54:16 Pneumococcal conjugate PCV20, polysaccharide [id number] conjugate, adjuvant, PF 022 completed Not Available [facility] 04/20/2023 18:54:16 COVID-19, mRNA, LNP-S, bivalent, PF, 50 mcg/0.5 mL or 25mcg/0.25 mL dose 023 completed Not Available [facility] 04/20/2023 18:54:16 Influenza, MDCK, quadrivalent, PF 023 completed CHRIST Trevizo, [facility] 07/25/2023 14:55:19 Influenza, split virus, trivalent, PF 024 completed JOSE Lee, [facility] 01/23/2024 08:53:18 zoster recombinant 025 completed Not Available [facility] 03/04/2025 10:47:05 Influenza, recombinant, trivalent, PF 025 completed Not Available [facility] 03/04/2025 10:47:05 zoster recombinant 025 completed Not Available [facility] 03/04/2025 10:47:05 zoster recombinant 023 cancelled patient objection BAUDILIO CHISHOLM MD [address], [address], [facility] 01/19/2023 15:57:18 Past Encounters Encounter ID Performer Location Encounter Start Date Encounter Closed Date Diagnosis/Indication Diagnosis SNOMED-CT Code Diagnosis ICD10 Code Diagnosis IMO Codes Diagnosis Note [id number] Tom Wilson MD Main Office [address] [facility] [address] [place] [address] 01/13/2025 15:39:01 01/13/2025 16:57:58 Bacterial sinusitis 176001540 J32.9 B96.89 6632614 cont flonase, but rec increase ns spray, steam, warm compress neckwill rx c abxrecomme nd probiotics while on abx Health Concerns Section Related Observation LastModified by Organization Detai ls LastModified Time None Recorded Concern Status LastModified by Organization Details LastModified Time None Recorded Payers Encounter Date Sequence Insurance Name Policy Number Policy Peralta Covered Member ID Peralta Member ID Guarantor Name 01/13/2025 1 [facility]: [facility] [id number] Fadumo De La Rosa [id number] Fadumo De La Rosa Notes Date Note Type Note Provider Name and Address Organization Details Recorded Time 01/13/2025 text/html congestion started 9 days ago, went to ER.rev ER note - negative w/u, including cxrthen had f/c assoc c pur nasal dc, hines, pnd/cough, some occ tooth painnegative flu, covid testno wheezing, sobvertigo better latelyocc ears blockedtaking prn sudafed Ilan Stoddard PA-C [address] [address], [place], [address], [facility] 01/13/2025 17:39:38 OBGyn Episode No OBEpisode recorded.
--- OUTSIDE RECORDS SUMMARY | 2025-03-20 23:13 | XMS_ITS | Clinical Summary ---
Author Organization [facility] Address [address] [address] Phone Care Team Providers Care Armature Balancer Name Role Phone Sari Oswald Primary Care [...] Devices Not on file Insurance Care Teams Armature Balancer Relationship Specialty Start Date End Date Sari Oswald PA [address] [facility] [address] [place] [address] PCP - General Physician Refractory Specialist 04/20/23 Additional Source Comments The information contained in this document represents components of the legal health record. It is not the complete legal health record.[facility]
--- OUTSIDE RECORDS SUMMARY | 2025-03-20 23:13 | XMS_ITS | Patient Health Record ---
Author Organization [facility] Address [address] [place] [address] Care Team Providers Care Doctor Of Dental Surgery Name Role Phone Mckayla PEREZ, Beth Primary Care Provider Unavail able Jostin Flaherty Unavailable [phone] Allergies Allergen (clinical drug ingredient) Drug/Non Drug [...] W/U Status Risk Notes Problem Hallux valgus (514815737) Hallux Valgus (735.0) Active confirmed Problem Ingrowing nail (040297947) Ingrowing Nail (703.0) Active confirmed Plan Of Treatment Pending Test Test Name Order Date 14527-Qmhhmsaq Plate 11/26/2013 95417-Jywvwwjw Plate Each Additional Insurance Providers Payer Name Payer Address Payer Phone Subscriber Number Group Number Insured Name Patient Relationship to Insured Coverage Start Date Coverage End Date [facility] [address] [place] [address] [phone] [id number] Schaier, Fadumo Self - patient is the insured Medical (General) History Medical History History ICD Code Anxiety Fibromyalgia Migraines Reflux Measles Mumps Chicken pox Surgical History Surgery Date(Month/Year) vein ligation
--- OUTSIDE RECORDS SUMMARY | 2025-03-20 23:13 | XMS_ITS | Continuity of Care Document ---
Author Organization [facility], Main Office Address [address] [facility] [address] [place] [id number] Care Team Providers Care Bumper Straightener Name Role Phone SUSY PHELPS Small Kick Press Operator [facility] Rectangular Tank Cooper WYATT GONZALEZ JR Electrical Engineering Technician [phone] BALWINDER HARE Urologist ROBBIE RANGEL Neurologist MING RUFFIN Psychiatrist SAMMY RUTLEDGE Aerobics Teacher [facility] Endocrinologis t MARVA SAUNDERS Small Kick Press Operator [facility] Orthopedic Surgeon [facility] Phys. Med. & Rehab SHONDA HARLEY Primary Care Provider Assessment No assessment recorded. Plan of Treatment Reminders Order Date Submit Date Provider Last Modified By Organization Details Last Modified Time Details Appointments FOLLOW UP 2025 03:30P Marco HARLEY MD Not available Not available Not available Lab lipid panel, serum 2024 025 ADAN [facility], [address] [place], [address], 01/29/2025 06:08:21 BMP, serum or plasma 2024 025 ADAN [facility], [address] [place], [address], 01/29/2025 06:08:20 CBC w/ auto diff 2024 ADAN [facility], [address], [place], [address], 01/29/2025 06:08:20 TSH, ultra-sen sitive, serum 2024 ADAN [facility], [address] [place], [address], 01/29/2025 06:08:21 Referral telephonic rn referral - to consider allergy shots 2024 [facility], [address] [facility], [address], [place], [address], 01/31/2025 11:56:41 mental health counselor referral 2024 [email or web address] Not available 01/24/2025 15:58:23 Procedures None recorded. Surgeries None recorded. Imaging None recorded. Medication Orders carisopro dol 250 mg tablet 2024 NORR[id number], [address] [place], [address], 02/04/2025 05:01:04 Patient TargetsNo targets recorded. Patient Instructions Encounter Date Encounter Id Patient Instructions Last Modified By Organization Details Last Modified Time 01/23/2025 [id number] irritable bowel syndrome: care instructions Not available [...] learning about stress Not available 01/23/2025 16:31:01 Reason for Referral Window Shade Cutter And Mounter Referral for Seaso nal allergy to consider allergy shots [facility] Encounter Date: 01/23/2025 Mental Health Counselor Refe rral for Mood disorder Referring Physician: Shonda Harley [facility], Encounter Date: 01/23/2025 Results Created Date Observation Date Name Description Value Unit Range Abnormal Flag Note LastModifiedBy Organization Detail LastModifiedTime 01/29/2001/28/2025 CBC WITH DIFFE RENTI AL/PL ATELE T WBC 4.9 x10e3 /uL 3.4-10 .8 normal Not Available [facility] ([facility]) [address] [place], [address], 01/29/2025 06:08:20 01/29/20 25 01/28/2025 CBC WITH DIFFE RENTI AL/PL ATELE T RBC 3.92 x10e6 /uL 3.77-5 .28 normal Not Available [facility] ([facility]) [address] [place], [address], 01/29/2025 06:08:20 01/29/20 25 01/28/2025 CBC WITH DIFFE RENTI AL/PL ATELE T hemoglobin 12.8 g/dL 11.1-1 5.9 normal Not Available [facility] ([facility]) [address] [place], [address], 01/29/2025 06:08:20 01/29/20 25 01/28/2025 CBC WITH DIFFE RENTI AL/PL ATELE T hematocrit 38.2 % 34.0-4 6.6 normal Not Available [facility] ([facility]) [address] [facility], [place], [address], 01/29/2025 06:08:20 01/29/20 25 01/28/2025 CBC WITH DIFFE RENTI AL/PL ATELE T MCV 97 fL 79-97 normal Not Available [facility] ([facility]) [address] [facility], [place], [address], 01/29/2025 06:08:20 01/29/20 25 01/28/2025 CBC WITH DIFFE RENTI AL/PL ATELE T MCH 32.7 pg 26.6-3 3.0 normal Not Available [facility] ([facility]) [address] [place], [address], 01/29/2025 06:08:20 01/29/20 25 01/28/2025 CBC WITH DIFFE RENTI AL/PL ATELE T MCHC 33.5 g/dL 31.5-3 5.7 normal Not Available [facility] ([facility]) [address] [facility], [place], [address], 01/29/2025 06:08:20 01/29/20 25 01/28/2025 CBC WITH DIFFE RENTI AL/PL ATELE T RDW 12.3 % 11.7-1 5.4 Not Available [facility] ([facility]) [address] [place], [address], 01/29/2025 06:08:20 01/29/20 25 01/28/2025 CBC WITH DIFFE RENTI AL/PL ATELE T platelets 189 x10e3 /uL 150-45 0 normal Not Available [facility] ([facility]) [address] [place], [address], 01/29/2025 06:08:20 01/29/20 25 01/28/2025 CBC WITH DIFFE RENTI AL/PL ATELE T neutrophils 60 % not estab. normal Not Available [facility] ([facility]) [address] [place], [address], 01/29/2025 06:08:20 01/29/20 25 01/28/2025 CBC WITH DIFFE RENTI AL/PL ATELE T lymphs 27 % not estab. normal Not Available [facility] ([facility]) [address] [facility], [place], [address], 01/29/2025 06:08:20 01/29/20 25 01/28/2025 CBC WITH DIFFE RENTI AL/PL ATELE T monocytes 9 % not estab. normal Not Available [facility] ([facility]) [address] [facility], [place], [address], 01/29/2025 06:08:20 01/29/2001/28/2025 CBC WITH DIFFE RENTI AL/PL ATELE T eos 3 % not estab. normal Not Available [facility] ([facility]) [address] [facility], [place], [address], 01/29/2025 06:08:20 01/29/20 25 01/28/2025 CBC WITH DIFFE RENTI AL/PL ATELE T basos 1 % not estab. normal Not Available [facility] ([facility]) [address] [facility], [place], [address], 01/29/2025 06:08:20 01/29/20 25 01/28/2025 CBC WITH DIFFE RENTI AL/PL ATELE T immature cells RADIO DISC JOCKEY Not Available [facility] ([facility]) [address] [place], [address], 01/29/2025 06:08:20 01/29/20 25 01/28/2025 CBC WITH DIFFE RENTI AL/PL ATELE T neutrophils (absolute) 2.9 x10e3 /uL 1.4-7. 0 normal Not Available [facility] ([facility]) [address] [place], [address], 01/29/2025 06:08:20 01/29/20 25 01/28/2025 CBC WITH DIFFE RENTI AL/PL ATELE T lymphs (absolute) 1.3 x10e3 /uL 0.7-3. 1 normal Not Available [facility] ([facility]) [address] [facility], [place], [address], 01/29/2025 06:08:20 01/29/20 25 01/28/2025 CBC WITH DIFFE RENTI AL/PL ATELE T monocytes(ab solute) 0.5 x10e3 /uL 0.1-0. 9 normal Not Available [facility] ([facility]) [address] [facility], [place], [address], 01/29/2025 06:08:20 01/29/20 25 01/28/2025 CBC WITH DIFFE RENTI AL/PL ATELE T eos (absolute) 0.1 x10e3 /uL 0.0-0. 4 normal Not Available [facility] ([facility]) [address] [facility], [place], [address], 01/29/2025 06:08:20 01/29/20 25 01/28/2025 CBC WITH DIFFE RENTI AL/PL ATELE T baso (absolute) 0.1 x10e3 /uL 0.0-0. 2 normal Not Available [facility] ([facility]) [address] [facility], [place], [address], 01/29/2025 06:08:20 01/29/20 25 01/28/2025 CBC WITH DIFFE RENTI AL/PL ATELE T immature granulocytes 0 % not estab. Not Available [facility] ([facility]) [address] [facility], [place], [address], 01/29/2025 06:08:20 01/29/20 25 01/28/2025 CBC WITH DIFFE RENTI AL/PL ATELE T immature grans (abs) 0.0 x10e3 /uL 0.0-0. 1 Not Available [facility] ([facility]) [address] [facility], [place], [address], 01/29/2025 06:08:20 01/29/20 25 01/28/2025 CBC WITH DIFFE RENTI AL/PL ATELE T NRBC RADIO DISC JOCKEY Not Available [facility] ([facility]) [address], [place], [address], 01/29/2025 06:08:20 01/29/20 25 01/28/2025 CBC WITH DIFFE RENTI AL/PL ATELE T hematology comments: RADIO DISC JOCKEY Not Available [facility]) [address] [facility], [place], [address], 01/29/2025 06:08:20 01/29/20 25 01/29/2025 BASIC METAB OLIC PANEL (8) glucose 75 mg/dL 70-99 normal Not Available [facility] ([facility]) [address] [facility], [place], [address], 01/29/2025 06:08:20 01/29/20 25 01/29/2025 BASIC METAB OLIC PANEL (8) BUN 16 mg/dL 8-27 normal Not Available [facility] ([facility]) [address] [facility], [place], [address], 01/29/2025 06:08:20 01/29/20 25 01/29/2025 BASIC METAB OLIC PANEL (8) creatinine 0.92 mg/dL 0.57-1 .00 normal Not Available [facility] ([facility]) [address] [facility], [place], [address], 01/29/2025 06:08:20 01/29/20 25 01/29/2025 BASIC METAB OLIC PANEL (8) eGFR 67 mL/mi n/1.7 3 >59 normal Not Available [facility] ([facility]) [address] [facility], [place], [address], 01/29/2025 06:08:20 01/29/20 25 01/29/2025 BASIC METAB OLIC PANEL (8) BUN/creatini ne ratio 17 12-28 normal Not Available [facility] ([facility]) [address] [place], [address], 01/29/2025 06:08:20 01/29/20 25 01/29/2025 BASIC METAB OLIC PANEL (8) sodium 140 mmol/ L 134-14 4 normal Not Available [facility] ([facility]) [address] [place], [address], 01/29/2025 06:08:20 01/29/2001/29/2025 BASIC METAB OLIC PANEL (8) potassium 4.5 mmol/ L 3.5-5. 2 normal Not Available [facility] ([facility]) [address] [place], [address], 01/29/2025 06:08:20 01/29/20 25 01/29/2025 BASIC METAB OLIC PANEL (8) chloride 104 mmol/ L 96-106 normal Not Available [facility] ([facility]) [address] [place], [address], 01/29/2025 06:08:20 01/29/20 25 01/29/2025 BASIC METAB OLIC PANEL (8) carbon dioxide, total 22 mmol/ L 20-29 normal Not Available [facility] ([facility]) [address] [place], [address], 01/29/2025 06:08:20 01/29/20 25 01/29/2025 BASIC METAB OLIC PANEL (8) calcium 9.8 mg/dL 8.7-10 .3 normal Not Available [facility] ([facility]) [address] [place], [address], 01/29/2025 06:08:20 01/29/20 25 01/29/2025 LIPID PANEL cholesterol, total 183 mg/dL 100-19 9 normal Not Available [facility] ([facility]) [address] [facility], [place], [address], 01/29/2025 06:08:20 01/29/2001/29/2025 LIPID PANEL triglyceride s 117 mg/dL 0-149 normal Not Available [facility] ([facility]) [address] [facility], [place], [address], 01/29/2025 06:08:20 01/29/2001/29/2025 LIPID PANEL HDL cholesterol 76 mg/dL >39 normal Not Available [facility] [address] [place], [address], 01/29/2025 06:08:20 01/29/2001/29/2025 LIPID PANEL VLDL cholesterol marta 20 mg/dL 5-40 Not Available [facility] ([facility]) [address] [facility], [place], [address], 01/29/2025 06:08:20 01/29/2001/29/2025 LIPID PANEL LDL chol calc ([facility]) 87 mg/dL 0-99 Not Available [facility] [address] [place], [address], 01/29/2025 06:08:20 01/29/2001/29/2025 LIPID PANEL LDL calc comment: RADIO DISC JOCKEY Not Available [facility] ([facility]) [address] [place], [address], 01/29/2025 06:08:20 01/29/2001/29/2025 TSH RFX ON ABNOR MAL TO FREE T4 TSH 3.890 uIU/m L 0.450- 4.500 normal Not Available [facility] ([facility]) [address] [facility], [place], [address], 01/29/2025 06:08:21 01/03/20 25 01/02/2025 XR, chest , 1 view No observ ation [facility] ed. [facility] [address] [place], [address], 01/13/2025 16:24:04 01/03/2001/02/2025 CT, angio gram, head + neck, w/ contr ast No observ ation record ed. [facility] (Medical Records) [address] [place], [address], 01/13/2025 16:24:32 01/24/2009/21/2024 MRI, cervi marta spine , w/o contr ast No observ ation record ed. Not Available 01/24 07:37:47 03/14/2002/21/2025 DEXA, axial skele ton Name:Emily cook ID: [id number] Age:69 years Sex:Fe male Ethnic ity:Wh [...] determ ined by WHO criter ia. WSN: [id number] Orderi ng Physic seun: Brayan Christensen Dictat ed By: Marine PEREZ, Bijal Mcintyre Dictat ed Date/T sheryl: 2:19 pm Review ed By: Marine PEREZ, Bijal Mcintyre Signed By: Bijal Hawthorne MD Signed Date/T sheryl: 2:19 pm Transc ribed By: VENKAT Transc ribed Date/T sheryl: 2:18 pm Patien t Class: Outpat ient [facility] (Outpt Imaging) [address] , [place], [address], 03/15/2025 17:49:20 Result Notes None recorded. Problems Name Problem SNOMED Code Status Onset Date Resolution Date Notes Provider Name and Address Organization Details Recorded Time Migraine 27461314 Active 2016 JOSE Lee [facility] 14:11:14 Anxiety disorder 972254255 Active 2016 JOSE Lee [facility] 14:11:14 Gastroesophage al reflux disease 536190304 Active 2016 JOSE Lee [facility] 14:11:14 Insomnia 796812824 Active 2016 JOSE Lee, [facility] 14:11:14 Scoliosis deformity of spine 617600158 Active 2016 OJSE Lee [facility] 14:11:14 Postmenopausal osteoporosis 600899915 Active 2018 JOSE Lee [facility] 1 14:11:14 Fibromyalgia 656091427 Active 2022 SHONDA HARLEY MD [address] [facility] [address] [address] [facility] 3 14:43:34 Irritable bowel syndrome 88036698 Active 2023 CHRIST Trevizo [facility] 4 14:53:03 Hydronephrosis 27786105 Active 2023 Maria Elena walton [facility] 4 14:09:31 Osteoarthrosis of the carpometacarpa l joint of the thumb 06764969 Active 2023 Maria Elena walton [facility] 4 13:48:09 Statin declined 778671254 Active 2024 SHONDA HARLEY MD [address] [facility] [address], [facility] [address], [facility] 5 19:29:04 Problem Notes None recorded. Procedures Surgical History Date Name Laterality Status Provider Name and Address Organization Details Recorded Time 09/22/19 25 Most Recent Mammogram completed Abigail Viera MA [facility] 01/23/2025 15:16:54 07/04/19 24 Endoscopic us exam esoph completed Cathy Beverly [facility] 07/05/2023 09:06:15 08/03/19 22 Mammogram both breasts completed Renee Cosme [facility] 08/05/2021 13:52:25 08/05/19 21 Date of Last Pap Smear completed Abigail Viera MA [facility] 11/27/2020 14:46:47 03/10/20 18 root canal preparation completed Anya anderson MA [facility] 07/25/2018 09:29:53 11/30/19 18 root canal preparation completed Anya anderson MA [facility] 07/25/2018 09:29:45 09/10/19 17 Most Recent Bone Density completed Lucina Glez [facility] 02/11/2017 11:48:36 09/10/19 17 Dxa bone density luis carlos vrt fx completed Nita Garay [facility] 02/17/2017 13:37:51 07/03/19 16 Date of Last Colonoscopy completed Anya anderson MA [facility] 07/25/2018 08:47:50 07/03/19 16 Colonoscopy completed Anya anderson MA [facility] 07/25/2018 09:18:35 05/24/18 90 Caesarean Section completed Abigail Viera MA [facility] 11/27/2020 14:35:12 Tonsillectomy completed Abigail brink MA [facility] 02/10/2017 10:50:18 delivery completed Abigail ledbetter MA [facility] 02/10/2017 10:58:33 Endometrial Ablation completed Abigail Viera MA [facility] 02/10/2017 10:58:44 Imaging Results None recorded. Procedure Notes None recorded. Medical Equipment None Reported. Allergies Allergen ID Allergen Name Allergen Category Reaction Reaction Severity Criticality Documentation Date Start Date Code Code System Note Provider Name and Address Organization Details Recorded Time 18177 latex gloves medicatio n itching moderate Not available 02/10/2017 JOSE Lee [facility] 7 10:49:57 99946 codeine medicatio n vomiting Not available Not available 02/10/20172020 2670 RxNorm Nita Jarrod walton [facility] 1 10:26:09 71728 Demerol medicatio n tachycard ia Not available Not available 02/10/2017 18532 1 RxNorm JOSE Lee [facility] 7 10:49:57 62388 Iodinated contrast media (substanc e) medicatio n lighthead edness Not available Not available 02/10/20172020 44138 2003 SNOMED JOSE Schmidt [facility] 2 12:49:34 43061 Product containin g penicilli n (product) medicatio n hives severe Not available 02/10/20172020 33502 8001 JOSE Boyce [facility] 2 12:49:34 75132 Substance with sulfonami de structure and antibacte rial mechanism of action (substanc e) medicatio n hives moderate Not available 07/25/20182020 04261 8003 SNOMED Qiana BrewerJOSE cuellar, [facility] 2 12:49:34 77172 sertralin e medicatio n headache severe Not available 07/13/20202020 24038 RxNorm Nita walton [facility] 1 10:26:09 12399 sulfur medicatio n hives moderate Not available 01/05/20212020 53364 RxNorm CHRIST Trevizo [facility] 4 13:44:57 94306 meperidin e medicatio n palpitati ons mild Not available 01/05/20212020 6754 RxNorm Nita walton [facility] 1 10:26:09 48476 Adhesive agent (substanc e) environme nt,medica tion itching moderate Not available 02/04/20222020 90970 0007 SNOMED Qiana BrewerJOSE cuellar, [facility] 2 12:49:34 29894 Product containin g gadoliniu m and/or gadoliniu m compound (product) medicatio n Not available Not available Not available 07/25/20232023 16620 3008 SNOMED Other react ions and sever ities : 'Unkn own'. CHRIST Trevizo [facility] 4 14:51:47 25964 latex environme nt,medica tion Not available Not available Not available 02/28/20252022 39663 91 RxNorm Not Available adan - External Data Service - prod 5 08:38:33 44925 meperidin e hydrochlo ride medicatio n Not available Not available Not available 02/28/20252022 50842 5 RxNorm Not Available adan - External Data Service - prod 5 08:38:33 48892 Penicilli n Not available Not available Not available Not available 02/28/20252022 07390 RxNorm Not Available adan - External Data Service - prod 5 08:38:33 76139 dye environme nt Not available Not available Not available 02/28/2025 Not Available adan - External Data Service - [facility] 5 08:39:25 77974 sulfameth oxazole / trimethop rim medicatio n Not available Not available Not available 02/28/2025 16413 RxNorm unrec ogniz ed react ion (text : hives , code: [id number]) [facility] Not Available [facility] External Data Service - [facility] 5 08:39:56 Medications Name Sig Start Date [...] Not Available nystatin 100,000 unit/mL oral suspension 060776 units 4 times a day by oral [...] propionate 50 mcg/actuat ion nasal spray,susp ension [place] 2 sprays every day by intranas al [...] Updated DateTime 5 168.91 cm 20.8 kg/m2 94222.6 g 99 % 76 /min 98.1 [degF] 128/76 mm[Hg] Abigail Viera MA [facility] 5 15:12:45 Social History Question Answer Notes LastModified by Organizat ion Details LastModified Time Tobacco Smoking Status Never Smoker JOSE Lee [facility] 02/10/2017 10:50:12 Do You Have An Advance Directive? No HCP Declined Information not available 02/04/2022 Is Blood Transfusion Acceptable In An Emergency? Yes [email or web address] Information not available 02/10/2017 What Is Your Level Of Caffeine Consumption? Occasional [email or web address] Information not available 01/07/2022 How Much Tobacco Do You Chew? None [email or web address] Information not available 02/10/2017 In The 14 [...] Type Of Diet Are You Following? REGULAR [email or web address] Information not available 02/10/2017 Which Illicit Or Recreational Drugs Have You Used? None Information not available 07/25/2018 Live Alone Or With Others? With Others ([place]) Information not available 02/04/2022 Do You Take Precautions To Prevent Distracted Driving? Yes [email or web address] Information not available 02/10/2017 How Often Do You Need To Have Someone Help You When You Read Instructions, Pamphlets, Or Other Written Material From Your Doctor Or Pharmacy? Never [email or web address] Information not available 02/10/2017 Have You Served In The ? No Information not available 07/25/2018 Have You Or Anyone In Your Household Had Any Of The Following Symptoms In The Last 14 Days: Sore Throat, Cough, Chills, Body Aches For Unknown Reasons, Shortness Of Breath For Unknown Reasons, Loss Of Smell, Loss Of Taste, Fever At Or Greater Than 100 Degrees Fahrenheit? No [email or web address] Information not available 11/14/2019 Are You Or Anyone In Your Household A Health Care Provider Or Emergency Responder? Yes Public Health Nurse [email or web address] Information not available 01/10/2020 To The Best Of Your Knowledge Have You Been In Close Proximity To Any Individual Who Tested Positive For COVID-19? No [email or web address] Information not available 11/14/2019 *AWV ONLY* Are You Presently Prescribed Opioid Medication By PCP Or Specialist? If YES -Provider Assess The Benefit For Other, Non-opioid Pain Therapies Instead, Even If The Patient Does Not Have OUD But Is Possibly At Risk. No [email or web address] Information not available 01/19/2023 Have You Recently Traveled To A [facility] High Risk Area Or Gathering In The Last 10 Days? No [email or web address] Information not available 11/27/2020 What Was The Date Of Your Most Recent Tobacco Screening? 01/23/2025 [email or web address] Information not available 01/23/2025 How Many Children Do You Have? 1 Ilan Information not available 07/25/2018 Do You Use Protection During Sex? Always [email or web address] Information not available 02/10/2017 Do You Use Your Seat Belt Or Car Seat Routinely? Yes Information not available 11/27/2020 Seat Belts Used Routinely Yes Information not available 02/04/2022 Are You Sexually Active? No [email or web address] Information not available 11/27/2020 Smoke Alarm In Home Yes Information not available 02/04/2022 Do You Have Smoke And Carbon Monoxide Detectors In Your Home? Yes [email or web address] Information not available 11/27/2020 At What Age Did You Start Smoking Tobacco? 0 Information not available 07/25/2018 Are You Passively Exposed To Smoke? No [email or web address] Information not available 02/10/2017 How Much Tobacco Do You Smoke? No Information not available 07/25/2018 Do You Use Sunscreen Routinely? Yes [email or web address] Information not available 02/10/2017 How Many Years Have You Smoked Tobacco? 0 Information not available 07/25/2018 Sex: Unknown Functional Status Question Answer Note LastModified by Organizat ion Details LastModified Time What is your level of alcohol consumption? Occasional rare [email or web address] Information not available 01/23/2024 Do you or have you ever used smokeless tobacco? Never used smokeless tobacco Information not available 11/14/2019 Are you currently employed? Yes [email or web address] Information not available 02/10/2017 Are you able to walk independently without assistance or assistive devices? YESWOREST Information not available 02/04/2022 Are you able to care for yourself independently? Yes [email or web address] Information not available 02/10/2017 What is your [...] Organization Details LastModified Time Father Heart disease [email or web address] Not available 02/10 10:56:56 Father History of malignant neoplasm of esophagus Not available 2021 08:49:48 Father Migraine Not availab le 11/27/2020 14:34:47 Mother Heart disease [email or web address] Not available 01/07 14:58:29 Mother Diabetes mellitus [email or web address] Not available 02/10 10:57:47 Mother Migraine Not availab le 11/27/2020 14:34:47 Notes:No FH of breast or col on cancer Medical History Condition Response Gout N Other N Blood Diseases N Kidney Stones N Hyperthyroidism N Breast Cancer N Depression [...] Recorded Time Tdap 009 completed Not Available [facility] 04/20/2023 18:54:16 Tdap 018 completed Not Available [facility] 04/20/2023 18:54:16 Influenza, MDCK, quadrivalent, preservative 019 completed Not Available [facility] 04/20/2023 18:54:16 COVID-19, mRNA, LNP-S, PF, 100 mcg/0.5mL dose or 50 mcg/0.25mL dose 021 completed Not Available [facility] 04/20/2023 18:54:16 COVID-19, mRNA, LNP-S, PF, 100 mcg/0.5mL dose or 50 mcg/0.25mL dose 021 completed Not Available [facility] 04/20/2023 18:54:16 Influenza, split virus, trivalent, PF 017 completed Not Available [facility] 04/20/2023 18:54:17 Influenza, split virus, trivalent, PF 016 completed Not Available [facility] 04/20/2023 18:54:17 Influenza, recombinant, quadrivalent, PF 020 completed Not Available [facility] 04/20/2023 18:54:16 COVID-19, mRNA, LNP-S, PF, 100 mcg/0.5mL dose or 50 mcg/0.25mL dose 021 completed Not Available [facility] 04/20/2023 18:54:16 Influenza, split virus, quadrivalent, PF 018 completed Not Available [facility] 04/20/2023 18:54:17 COVID-19, mRNA, LNP-S, PF, 100 mcg/0.5mL dose or 50 mcg/0.25mL dose 022 completed Not Available [facility] 04/20/2023 18:54:16 Influenza, high-dose, quadrivalent, PF 021 completed Not Available [facility] 04/20/2023 18:54:16 Influenza, MDCK, quadrivalent, PF 022 completed Not Available [facility] 04/20/2023 18:54:16 pneumococcal polysaccharide PPV23 021 completed Not Available [facility] 04/20/2023 18:54:16 Pneumococcal conjugate PCV20, polysaccharide [id number] conjugate, adjuvant, PF 022 completed Not Available [facility] 04/20/2023 18:54:16 COVID-19, mRNA, LNP-S, bivalent, PF, 50 mcg/0.5 mL or 25mcg/0.25 mL dose 023 completed Not Available [facility] 04/20/2023 18:54:16 Influenza, MDCK, quadrivalent, PF 023 completed CHRIST Trevizo, [facility] 07/25/2023 14:55:19 Influenza, split virus, trivalent, PF 024 completed JOSE Lee, [facility] 01/23/2024 08:53:18 zoster recombinant 025 completed Not Available [facility] 03/04/2025 10:47:05 Influenza, recombinant, trivalent, PF 025 completed Not Available [facility] 03/04/2025 10:47:05 zoster recombinant 025 completed Not Available [facility] 03/04/2025 10:47:05 zoster recombinant 023 cancelled patient objection SHONDA HARLEY MD [address] [address], [place], [address], [facility] 01/19/2023 15:57:18 Past Encounters Encounter ID Performer Location Encounter Start Date Encounter Closed Date Diagnosis/Indication Diagnosis SNOMED-CT Code Diagnosis ICD10 Code Diagnosis IMO Codes Diagnosis Note [id number] Tom Wilson MD Main Office [address] [address] [place] [address] 01/13/2025 15:39:01 01/13/2025 16:57:58 Bacterial sinusitis 023198299 J32.9 B96.89 5359757 cont flonase, but rec increase ns spray, steam, warm compress neckwill rx c abxrecomme nd probiotics while on abx [id number] SHONDA HARLEY MD Main Office [address] [place] [address] 01/23/2025 14:56:01 01/23/2025 15:40:15 Adult health examination 032669400 Z00.00 Health Maintenanc e FemaleA) Patient was [...] or sooner if any acute complaints Migraine 49323083 G43.90 9 - c/w sumatripta n 25mg [...] do massages with good relief Anxiety disorder 4164828 06 F41.9 - RENE-7 score 17- pt is currently doing some meditation - currently on alprazolam 0.5mg -> prescribed by a specialist > will take 0.25mg instead of 0.5mg- c/w amitriptyl ine 10 mg QD (not taking consistent ly)- pt does not want to make any changes, most due to work Postmenopa usal osteoporosis 039692662 M81.0 - has been following with endo- not currently on any medication , pt prefers to treat with lifestyle and vitamins at this time- on calcium and vitamin C Gastroesop hageal reflux disease 477431708 K21.9 - recent EGD was normal 07/04/2023- c/w omeprazole 20mg QD as needed The following lifestyle changes are recommende d and counseled :-Losing weight: Losing weight helps people who are overweight to reduce acid reflux.-Ra ising the head of your bed six to eight inches-Edy iding foods that trigger symptoms Avoid excessive caffeine, chocolate, alcohol, peppermint , and fatty foods. Irritable bowel syndrome 81234805 K58.9 - under good control- pt is currently on amitriptyl ine and hyoscyamin e Insomnia 714419151 G47.0 0 - will take amitriptyl ine 5mg as needed- counselled on sleep hygiene Seasonal allergy 7243811 04 J30.2 07434 - pt requesting to see telephonic rn to speak about allergy shots Fatigue 51784238 R53.83 4149270 Hyperlipidemia 17588352 E78.5 57751197 fasting Mood disorder 69606014 F 39 26667 - PHQ-9 score of 9- has not worsened- pt currently declines medication , she will take amitriptyl ine as needed Health Concerns Section Related Observation LastModified by Organization Detai ls LastModified Time None Recorded Concern Status LastModified by Organization Details LastModified Time None Recorded Payers Encounter Date Sequence Insurance Name Policy Number Policy Peralta Covered Member ID Peralta Member ID Guarantor Name 01/23/2025 1 [place] [facility] [place] [id number] Fadumo De La Rosa [id number] Fadumo De La Rosa Notes Date Note Type Note Provider Name and Address Organization Details Recorded Time 01/23/2025 text/html Fadumobenjamin De La Rosa is a 68 year old F who presented to the clinic for her annual exam. Patient was seen in the ED for nystagmus. Negative work-up. Was seen at [facility]. Pt denies any emergency room visits or [...] lactose intoleranceActivity: yoga, swimming SHONDA HARLEY MD [address] [address], [place], [address], [facility] 01/23/2025 16:31:42 OBGyn Episode No OBEpisode recorded.
--- OUTSIDE RECORDS SUMMARY | 2025-03-20 23:13 | XMS_ITS | Patient Health Record ---
Author Organization [facility] Address [address] [place] [address] Care Team Providers Care Tearer Name Role Phone Osvaldo Shanks MD, Indira Primary Care Provider Unavailable Ady Skelton Jr Unavailable Allergies Allergen (clinical drug ingredient) Drug/Non Drug Allergy documented on EMR Reaction Allergy Type Onset Date Status Dye DYE (uncoded) Unknown Allergy Active Latex latex (uncoded) Unknown Allergy Acti ve Celestone Unknown Drug Allergy Active Codeine Phosphate Unknown Drug Allergy Active Penicillin Unknown Drug Allergy Active Sulfa Unknown Drug Allergy Active Reason For Referral No Information Medications Medication SIG (Take, Route, Frequency, Duration) Notes Start Date End Date Status Omeprazole 20 MG Capsule Delayed Release TAKE 1 CAPSULE BY MOUTH TWICE A DAY FOR 30 DAYS; Duration: 90 Active Vitamin D Active Magnesium Active Imitrex Active tylenol Active Multivitamin Active Calcium Active Amitriptyline HCl 10 MG Tablet Oral; Duration: 90 Active Solifenacin Succinate 5 MG Tablet TAKE 1 TABLET BY MOUTH EVERY DAY Oral; Duration: 90 Active Immunizations Vaccine Route Administration Date Status Comme nts Influenza Unknown 02/04/2020 Administered Social History Social History Additional Details Category Social Info Options Details Miscellaneous: Marital status: Occupation: RN Problems Problem Type SNOMED Code ICD Code Onset Dates Problem Status W/U Status Risk Notes Problem Colon cancer screening (397143359) Colon cancer screening (Z12.11) Active confirmed Problem Gastro-esophageal reflux disease without esophagitis (906259704) Gastro-esophageal reflux disease without esophagitis (K21.9) Active confirmed Problem Irritable bowel syndrome (05739549) Irritable bowel syndrome without diarrhea (K58.9) Active confirmed Problem Gastroesophageal reflux disease without esophagitis (571229211) Gastroesophageal reflux disease without esophagitis (K21.9) Active confirmed Plan Of Treatment Future Test Test Name Order Date COLONOSCOPY 03/19/2015 UPPER GI ENDOSCOPY 06/15/2023 Insurance Providers Payer Name Payer Address Payer Phone Subscriber Number Group Number Insured Name Patient Relationship to Insured Coverage Start Date Coverage End Date [facility] [address] [place] [address] [phone] [id number] MICKI HIDALGO Self - patient is the insured Medical (General) History Medical History History ICD Code Colonoscopy 07/03/15, normal, ten-year fo llowup 2025 GERD , upper endoscopy 11/10/04, no H. pyl janny. Anxiety Back pain/disc disease Migraine headaches Osteopenia Seasonal allergies Chronic kidney disease Surgical History Surgery Date(Month/Year) section Tonsillectomy Fundoplication
--- OUTSIDE RECORDS SUMMARY | 2025-03-20 23:13 | XMS_ITS | Clinical Summary ---
Author Organization [facility] Address [address] [place] [phone] Phone Care Team Providers Care Beadworker Name Role Phone Shonda Harley MD Primary Care Provider Social History Tobacco Use Types Packs/Day Years [...] Health Maintenance Due Date Last Done Comments Colorectal Cancer Screening: Colonoscopy 1955 Cholesterol Screening (Lipid Panel) 03/13/2022 Falls Risk Assessment 03/13/2022 Hepatitis C [...] Diagnosis Comments MG MAMMO DIGITAL SCREENING W KIERAN BILAT Routine 08/29/2024 9:41 AM EDT Encounter [...] year. [facility] [address], [address] -------- FINAL REPORT -------- Dictated By: Eleuterio Clayton Dictated Date: 08/29/2024 11:45 ET Assigned Physician: Eleuterio Clayton Reviewed and Electronically Signed By: Eleuterio Clayton Signed Date: 08/29/2024 11:53 ET Workstation ID: [id number] Transcribed By: Self Edit Transcribed Date: 08/29/2024 [...] Tomosynthesis. Computer-aided detection was employed with the [employer] AI 3-D. TISSUE DENSITY: There are scattered [...] Tomosynthesis. Computer-aided detection was employed with the [employer] Asurint AI 3-D. TISSUE DENSITY: There are scattered [...] year. [facility]amm[facility] location: [facility] [address] [place], [address] -------- FINAL REPORT -------- Dictated By: Eleuterio Clayton Dictated Date: 08/29/2024 11:45 ET Assigned Physician: Eleutreio Clayton Reviewed and Electronically Signed By: Eleuterio Clayton Signed Date: 08/29/2024 11:53 ET Workstation ID: [id number] Transcribed By: Self Edit Transcribed Date: 08/29/2024 11:45 ET us Self Referral Sppl IMG BI PROCEDURES Final Resul t * CRISELDA DEXA AXIAL SKELETON (02/18/2022 4:05 PM EST) Anatomical Region Laterality Modality Mammography 02/18/2022 2:39 PM EST Narrative 02/18/2022 4:05 PM EST [facility] Diagnostic Imaging Department [address] [place] [address] Patient: FADUMO DE LA ROSA /Age/Sex: 1955 - 66 - F Unit#: [id number] Location/Status: SPDIMAM/REG CLI Mnemonic/Ordering Site: MAMDEXAAX/SPMAM Ordering Physician: INDIRA LUND MD [facility] Dexa Axial Skeleton - 02/18/22 - 151 History: Low estrogen state due to menopause. History of fracture. Comparison: 09/09/16 Findings: Bone densitometry is performed utilizing dual energy x-ray absorptiometry (DXA) in the [employer] unit. The lumbar spine and proximal femora [...] 15.3 percent Hip 2.4 percent. IMPRESSION: Osteoporosis. [id number] Dictating Physician: ERIN ARREOLA MD Electronically Signed by: ERIN ARREOLA MD Dic Date/Time: 02/18/221603 Sign date/Time: 02/18/221604 Procedure Note Erin Arreola MD - 05/12/2023 [facility] Diagnostic Imaging Department [address] [place] [address] Patient: MARELYBOLA STONEFEI Boucher /Age/Sex: 1955 - 66 - F Unit#: [id number] Location/Status: SPDIMAM/REG CLI Mnemonic/Ordering Site: MAMDEXAAX/SPMAM Ordering Physician: INDIRA LUND MD Criselda Dexa Axial Skeleton - 02/18/22 - 151 History: Low estrogen state due to menopause. History of fracture. Comparison: 09/09/16 Findings: Bone densitometry is performed utilizing dual energy x-ray absorptiometry(DXA) in the [employer] unit. The lumbar spine and proximal femora [...] 15.3 percent Hip 2.4 percent. IMPRESSION: Osteoporosis. [id number] Dictating Physician: ERIN ARREOLA MD Electronically Signed by: ERIN ARREOLA MD Dic Date/Time: 02/18/22 160 Sign date/Time: 02/18/221604 us Indira Lund MD IMG BI PROCEDURES Jennifer l Result from Last 3 Months or Most Recently Relevant to Health Maintenance Insurance MEDICARE [facility] Care Teams Beadworker Relationship Specialty Start Date End Date Shonda Harley MD [address] [address] PCP - General Internal Medicine 08/29/24
--- OUTSIDE RECORDS SUMMARY | 2025-03-20 23:13 | XMS_ITS | Continuity of Care Document ---
Author Organization [facility], Main Office Address [address] [facility] [address] [place] [id number] Care Team Providers Care Cosmetic Sales Consultant Name Role Phone SUSY PHELPS Clinical Immunologist [facility] Steward/Stewardess WYATT GONZALEZ JR A/C Technician [phone] BALWINDER HARE Urologist ROBBIE RANGEL Neurologist MING RUFFIN Psychiatrist SAMMY RUTLEDGE Printing Roller Polisher [facility] ENDOCRINOLOGY Endocrinologis t MARVA SAUNDERS Clinical Immunologist [facility] Orthopedic Surgeon [facility] [phone] SHONDA HARLEY Primary Care Provider Assessment No assessment recorded. Plan of Treatment Reminders Order Date Submit Date Provider Last Modified By Organization Details Last Modified Time Details Appointments FOLLOW UP 2025 03:30P Marco HARLEY MD Not available Not available Not available Lab None recorded. Referral mental health counselor referral 2024 Negar tripp Not available 03/05/2025 15:28:32 Procedures None recorded. Surgeries None recorded. Imaging None recorded. Medication Orders None recorded. Patient TargetsNo targets recorded. Patient Instructions Encounter Date Encounter Id Patient Instructions Last Modified By Organization Details Last Modified Time 03/04/2025 [id number] learning about anxiety disorders Not available 03/04/2025 14:17:22 learning about mood disorders Not available 03/04/2025 14:17:22 Mental Health Information Not available 03/04/2025 14:17:22 learning about stress Not available 03/04/2025 14:17:22 Reason for Referral Mental Health Counselor Refe rral for Mood disorder Referring Physician: Shonda Harley, Family Medicine, Encounter Date: 03/04/2025 Results Created Date Observation Date Name Description Value Unit Range Abnormal Flag Note LastModifiedBy Organization Detail LastModifiedTime 03/14/2002/21/2025 DEXA, axial skele ton Name:Emily cook ID: [id number] Age:69 years Sex:Fe male Ethnic ity:Wh [...] determ ined by WHO criter ia. WSN: [id number] Orderi ng Physic seun: Brayan Christensen Dictat ed By: Marine PEREZ, Bijal Mcintyre Dictat ed Date/T sheryl: 2:19 pm Review ed By: Marine PEREZ, Michae l P Signed By: Bijal Hawthorne MD Signed Date/T sheryl: 2:19 pm Transc ribed By: VENKAT Transc ribed Date/T sheryl: 2:18 pm Patien t Class: Outpat ient [facility] (Outpt Imaging) [address] , [place], [address], 03/15/2025 17:49:20 Result Notes None recorded. Problems Name Problem SNOMED Code Status Onset Date Resolution Date Notes Provider Name and Address Organization Details Recorded Time Migraine 69428625 Active 2016 JOSE Lee [facility] 1 14:11:14 Anxiety disorder 784760943 Active 2016 JOSE Lee [facility] 1 14:11:14 Gastroesophage al reflux disease 840568928 Active 2016 JOSE Lee [facility] 1 14:11:14 Insomnia 235543747 Active 2016 JOSE Lee [facility] 1 14:11:14 Scoliosis deformity of spine 123473092 Active 2016 JOSE Lee [facility] 1 14:11:14 Postmenopausal osteoporosis 646896196 Active 2018 JOSE Lee [facility] 1 14:11:14 Fibromyalgia 860988783 Active 2022 SHONDA HARLEY MD [address] [facility] [address] [address] , [facility] 3 14:43:34 Irritable bowel syndrome 14591345 Active 2023 CHRIST Trevizo [facility] 4 14:53:03 Hydronephrosis 67875176 Active 2023 Maria Elena walton [facility] 4 14:09:31 Osteoarthrosis of the carpometacarpa l joint of the thumb 39074751 Active 2023 Maria Elena walton [facility] 4 13:48:09 Statin declined 418946625 Active 2024 SHONDA HARLEY MD [address] [facility] [address] [facility] [address], [facility] 5 19:29:04 Problem Notes None recorded. Procedures Surgical History Date Name Laterality Status Provider Name and Address Organization Details Recorded Time 09/22/19 25 Most Recent Mammogram completed Abigail Viera MA [facility] 01/23/2025 15:16:54 07/04/19 24 Endoscopic us exam esoph completed Cathy Beverly [facility] 07/05/2023 09:06:15 08/03/19 22 Mammogram both breasts completed Renee Cosme [facility] 08/05/2021 13:52:25 08/05/19 21 Date of Last Pap Smear completed Abigail Viera MA [facility] 11/27/2020 14:46:47 03/10/20 18 root canal preparation completed Anya anderson MA [facility] 07/25/2018 09:29:53 11/30/19 18 root canal preparation completed Anya anderson MA [facility] 07/25/2018 09:29:45 09/10/19 17 Most Recent Bone Density completed Lucina Glez [facility] 02/11/2017 11:48:36 09/10/19 17 Dxa bone density luis carlos vrt fx completed Nita Garay [facility] 02/17/2017 13:37:51 07/03/19 16 Date of Last Colonoscopy completed Anya anderson MA [facility] 07/25/2018 08:47:50 07/03/19 16 Colonoscopy completed Anya anderson MA [facility] 07/25/2018 09:18:35 05/24/18 90 Caesarean Section completed Abigail Viera MA [facility] 11/27/2020 14:35:12 Tonsillectomy completed Abigail brink MA [facility] 02/10/2017 10:50:18 delivery completed Abigail ledbetter MA [facility] 02/10/2017 10:58:33 Endometrial Ablation completed Abigail Viera MA [facility] 02/10/2017 10:58:44 Imaging Results None recorded. Procedure Notes None recorded. Medical Equipment None Reported. Allergies Allergen ID Allergen Name Allergen Category Reaction Reaction Severity Criticality Documentation Date Start Date Code Code System Note Provider Name and Address Organization Details Recorded Time 55534 latex gloves medicatio n itching moderate Not available 02/10/2017 Abigailefrain MonetVieraJOSE painter [facility] 7 10:49:57 61249 codeine medicatio n vomiting Not available Not available 02/10/20172020 2670 RxNorm Nita Jarrod walton [facility] 1 10:26:09 40839 Demerol medicatio n tachycard ia Not available Not available 02/10/2017 11423 1 RxNorm JOSE Lee [facility] 7 10:49:57 81412 Iodinated contrast media (substanc e) medicatio n lighthead edness Not available Not available 02/10/20172020 43567 2003 SNELVIA Mcclendon JOSE walton [facility] 2 12:49:34 34774 Product containin g penicilli n (product) medicatio n hives severe Not available 02/10/20172020 91399 8001 BRANDON Mcclendon JOSE walton [facility] 2 12:49:34 07280 Substance with sulfonami de structure and antibacte rial mechanism of action (substanc e) medicatio n hives moderate Not available 07/25/20182020 71785 8003 SNOMED JSOE Schmidt, [facility] 2 12:49:34 99543 sertralin e medicatio n headache severe Not available 07/13/20202020 85395 RxNorm Nita walton, [facility] 1 10:26:09 09903 sulfur medicatio n hives moderate Not available 01/05/20212020 67434 RxNorm Ira Velez CHRIST null, [facility] 4 13:44:57 18967 meperidin e medicatio n palpitati ons mild Not available 01/05/20212020 6754 RxNorm Nita walton, [facility] 1 10:26:09 00944 Adhesive agent (substanc e) environme nt,medica tion itching moderate Not available 02/04/20222020 74977 0007 SNOMED JOSE Schmidt, [facility] 2 12:49:34 67787 Product containin g gadoliniu m and/or gadoliniu m compound (product) medicatio n Not available Not available Not available 07/25/20232023 49578 3008 SNOMED Other react ions and sever ities : 'Unkn own'. Ira Graysarah CHRIST null, [facility] 4 14:51:47 68199 latex environme nt,medica tion Not available Not available Not available 02/28/20252022 32179 91 RxNorm Not Available adan - External Data Service - prod 5 08:38:33 46726 meperidin e hydrochlo ride medicatio n Not available Not available Not available 02/28/20252022 86529 5 RxNorm Not Available adan - External Data Service - prod 5 08:38:33 83725 Penicilli n Not available Not available Not available Not available 02/28/20252022 99956 RxNorm Not Available adan - External Data Service - prod 5 08:38:33 81707 dye environme nt Not available Not available Not available 02/28/2025 Not Available adan - External Data Service - prod 5 08:39:25 41615 sulfameth oxazole / trimethop rim medicatio n Not available Not available Not available 02/28/2025 33022 RxNorm unrec ogniz ed react ion (text : hives , code: 96022 2003) (from exter nal sour e) Not Available adan - External Data Service - prod 08:39:56 Medications Name Sig Start Date Stop [...] Not Available nystatin 100,000 unit/mL oral suspension 111683 units 4 times a day by oral [...] propionate 50 mcg/actuat ion nasal spray,susp ension Lane 2 sprays every day by intranas al [...] Updated DateTime 5 168.91 cm 20.6 kg/m2 80307.5 2 g 100 % 77 /min 97.9 [degF] 135/75 mm[Hg] Abigail Viera MA [facility] 5 10:51:17 Social History Question Answer Notes LastModified by Organizat ion Details LastModified Time Tobacco Smoking Status Never Smoker Abigail Viera MA [facility] [place] 02/10/2017 10:50:12 Do You Have An Advance Directive? No HCP Declined Information not available 02/04/2022 Is Blood Transfusion Acceptable In An Emergency? Yes [email or web address] Information not available 02/10/2017 What Is Your Level Of Caffeine Consumption? Occasional [email or web address] Information not available 01/07/2022 How Much Tobacco Do You Chew? None [email or web address] Information not available 02/10/2017 In The 14 [...] Type Of Diet Are You Following? REGULAR [email or web address] Information not available 02/10/2017 Which Illicit Or Recreational Drugs Have You Used? None Information not available 07/25/2018 Live Alone Or With Others? With Others ([place]) Information not available 02/04/2022 Do You Take Precautions To Prevent Distracted Driving? Yes [email or web address] Information not available 02/10/2017 How Often Do You Need To Have Someone Help You When You Read Instructions, Pamphlets, Or Other Written Material From Your Doctor Or Pharmacy? Never [email or web address] Information not available 02/10/2017 Have You Served In The ? No Information not available 07/25/2018 Have You Or Anyone In Your Household Had Any Of The Following Symptoms In The Last 14 Days: Sore Throat, Cough, Chills, Body Aches For Unknown Reasons, Shortness Of Breath For Unknown Reasons, Loss Of Smell, Loss Of Taste, Fever At Or Greater Than 100 Degrees Fahrenheit? No [email or web address] Information not available 11/14/2019 Are You Or Anyone In Your Household A Health Care Provider Or Emergency Responder? Yes Public Health Nurse [email or web address] Information not available 01/10/2020 To The Best Of Your Knowledge Have You Been In Close Proximity To Any Individual Who Tested Positive For COVID-19? No [email or web address] Information not available 11/14/2019 *AWV ONLY* Are You Presently Prescribed Opioid Medication By PCP Or Specialist? If YES -Provider Assess The Benefit For Other, Non-opioid Pain Therapies Instead, Even If The Patient Does Not Have OUD But Is Possibly At Risk. No [email or web address] Information not available 01/19/2023 Have You Recently Traveled To A COVID-19 High Risk Area Or Gathering In The Last 10 Days? No [email or web address] Information not available 11/27/2020 What Was The Date Of Your Most Recent Tobacco Screening? 01/23/2025 Information not available 01/23/2025 How Many Children Do You Have? 1 Ilan Information not available 07/25/2018 Do You Use Protection During Sex? Always [email or web address] Information not available 02/10/2017 Do You Use Your Seat Belt Or Car Seat Routinely? Yes [email or web address] Information not available 11/27/2020 Seat Belts Used Routinely Yes Information not available 02/04/2022 Are You Sexually Active? No Information not available 11/27/2020 Smoke Alarm In Home Yes Information not available 02/04/2022 Do You Have Smoke And Carbon Monoxide Detectors In Your Home? Yes [email or web address] Information not available 11/27/2020 At What Age Did You Start Smoking Tobacco? 0 Information not available 07/25/2018 Are You Passively Exposed To Smoke? No [email or web address] Information not available 02/10/2017 How Much Tobacco Do You Smoke? No Information not available 07/25/2018 Do You Use Sunscreen Routinely? Yes Information not available 02/10/2017 How Many Years Have You Smoked Tobacco? 0 Information not available 07/25/2018 Sex: Unknown Functional Status Question Answer Note LastModified by Organizat ion Details LastModified Time What is your level of alcohol consumption? Occasional rare Information not available 01/23/2024 Do you or have you ever used smokeless tobacco? Never used smokeless tobacco [email or web address] Information not available 11/14/2019 Are you currently employed? Yes [email or web address] Information not available 02/10/2017 Are you able to walk independently without assistance or assistive devices? YESWOREST Information not available 02/04/2022 Are you able to care for yourself independently? Yes [email or web address] Information not available 02/10/2017 What is your [...] Organization Details LastModified Time Father Heart disease [email or web address] Not available 02/10 10:56:56 Father History of malignant neoplasm of esophagus Not available 2021 08:49:48 Father Migraine [email or web address] Not availab le 11/27/2020 14:34:47 Mother Heart disease [email or web address] Not available 01/07 14:58:29 Mother Diabetes mellitus [email or web address] Not available 02/10 10:57:47 Mother Migraine [email or web address] Not availab le 11/27/2020 14:34:47 Notes:No FH of breast or col on cancer Medical History Condition Response Other N Gout N Blood Diseases N Kidney Stones N Hyperthyroidism N Breast Cancer N Lung Disease N COPD N Depression Y Hypothyroidism N Defects or Inherited Disease N [...] Problems N GI Problems Y Acne N Skin Problems Y Eating Disorder N Anemia N Constipation Y Bladder Problems N Mental Illness N Ovarian Cancer N Diabetes N Blood Transfusions N Seizures/Epilepsy N Tuberculosis N AIDS/HIV N Congestive Heart Failure (CHF) N Eczema N Diverticulitis N Abuse/Domestic Violence N Allergies Y Asthma N Reflux/GERD Y Hepatitis N Pulmonary Embolism N Hypertension N Osteoporosis Y Chicken Pox Y Autism Spectrum Disorder (ASD) N Gynecological History Statement/Question Response Date of Last Pap Smear 08/04/2020 Date of Last Colonoscopy 07/03/2015 Most Recent Mammogram 09/21/2024 Most Recent Bone Density 09/09/2016 Obstetrics History GPAL:G 0 P 0 0 0 0 Immunizations Vaccine Type Date Status Note Provider Name and Address Organization Details Recorded Time Tdap 009 completed Not Available [facility] 04/20/2023 18:54:16 Tdap 018 completed Not Available [facility] 04/20/2023 18:54:16 Influenza, MDCK, quadrivalent, preservative 019 completed Not Available [facility] 04/20/2023 18:54:16 COVID-19, mRNA, LNP-S, PF, 100 mcg/0.5mL dose or 50 mcg/0.25mL dose 021 completed Not Available [facility] 04/20/2023 18:54:16 COVID-19, mRNA, LNP-S, PF, 100 mcg/0.5mL dose or 50 mcg/0.25mL dose 021 completed Not Available [facility] 04/20/2023 18:54:16 Influenza, split virus, trivalent, PF 017 completed Not Available [facility] 04/20/2023 18:54:17 Influenza, split virus, trivalent, PF 016 completed Not Available [facility] 04/20/2023 18:54:17 Influenza, recombinant, quadrivalent, PF 020 completed Not Available [facility] 04/20/2023 18:54:16 COVID-19, mRNA, LNP-S, PF, 100 mcg/0.5mL dose or 50 mcg/0.25mL dose 021 completed Not Available [facility] 04/20/2023 18:54:16 Influenza, split virus, quadrivalent, PF 018 completed Not Available [facility] 04/20/2023 18:54:17 COVID-19, mRNA, LNP-S, PF, 100 mcg/0.5mL dose or 50 mcg/0.25mL dose 022 completed Not Available [facility] 04/20/2023 18:54:16 Influenza, high-dose, quadrivalent, PF 021 completed Not Available [facility] 04/20/2023 18:54:16 Influenza, MDCK, quadrivalent, PF 022 completed Not Available [facility] 04/20/2023 18:54:16 pneumococcal polysaccharide PPV23 021 completed Not Available [facility] 04/20/2023 18:54:16 Pneumococcal conjugate PCV20, polysaccharide [id number] conjugate, adjuvant, PF 022 completed Not Available [facility] 04/20/2023 18:54:16 COVID-19, mRNA, LNP-S, bivalent, PF, 50 mcg/0.5 mL or 25mcg/0.25 mL dose 023 completed Not Available [facility] 04/20/2023 18:54:16 Influenza, MDCK, quadrivalent, PF 023 completed CHRIST Trevizo, [facility] 07/25/2023 14:55:19 Influenza, split virus, trivalent, PF 024 completed Abigail iVera MA null, [facility] 01/23/2024 08:53:18 zoster recombinant 025 completed Not Available [facility] 03/04/2025 10:47:05 Influenza, recombinant, trivalent, PF 025 completed Not Available [facility] 03/04/2025 10:47:05 zoster recombinant 025 completed Not Available [facility] 03/04/2025 10:47:05 zoster recombinant 023 cancelled patient objection SHONDA HARLEY MD [address], [address] 01/19/2023 15:57:18 Past Encounters Encounter ID Performer Location Encounter Start Date Encounter Closed Date Diagnosis/Indication Diagnosis SNOMED-CT Code Diagnosis ICD10 Code Diagnosis IMO Codes Diagnosis Note [id number] SHONDA HARLEY MD Main Office [address] [address] 03/04/2025 10:44:13 03/04/2025 11:14:35 Anxiety disorder 740317251 F41.9 - worsening- RENE-7 score 21- pt [...] d patient find a therapist Mood disorder 16235840 F 39 36127 - PHQ-9 score of 11- worsened- pt [...] Member ID Peralta Member ID Guarantor Name 03/04/2025 1 [facility] [place] [id number] Fadumo De La Rosa [id number] 90 Fadumo De La Rosa Notes Date Note Type Note Provider Name and Address Organization Details Recorded Time 03/04/2025 text/html Anxiety/Depressi onRep orted by PatientHPIFor quality, patient reportssymptoms worse during the dayandincreased anxiety. For context, patient reportstrouble at work. For associated symptoms, patient reportsanxiety,hypers ensitivity,low self-esteem, andsocial withdrawalbut reportsdenies homicidal ideations,no significant [...] a lot side effects. SHONDA HARLEY MD [address] [address], [place], [address], [facility] 03/04/2025 14:17:40 OBGyn Episode No OBEpisode recorded.
== END 2025-03-20 16:29 | disposition home or self-care (01) ==
LOC: HO.HSM 15:59
PROVIDERS: PCP Student in an Organized Health Care Education/Training Program; Referring Provider Internal Medicine; Visit Provider Psychiatry & Neurology Neurology
DX: G44.221 Chronic tension-type headache, intractable (principal); M47.812 Spondylosis without myelopathy or radiculopathy, cervical region; M79.7 Fibromyalgia
CPT/HCPCS: 99214